=== PATIENT | male | born 1935 | race Caucasian/White ===

== ENCOUNTER 2021-08-01 14:05 | Inpatient (IN) | payer OTHER ==
--- OUTSIDE RECORDS SUMMARY | 2021-08-01 15:48 | XMS REPORT | Continuity of Care Document ---
:1935 Author Organization [facility] t Address [address] [place] [address] Care Team Providers Name Role Phone A_Joana Attending Clinician Unavailable Trell Arora Attending Clinician Lynnette Attending Clinician Unavailable Lolita Ulloa Attending Clinician Unavailable Gilberto Attending Clinician Unavailable Tom Ulloa MD Attending Clinician TE Lara Attending Clinician Unavailable IHDE_G Attending Clinician Unavailable Stephenie Bird Attending Clinician Jeremías Attending Clinician Unavailable Juan Francisco_Bygenia Admitting Clinician Unavailable Gilberto Admitting Clinician Unavailable TE Lara Admitting Clinician Unavailable RUTHIE_G Admitting Clinician Unavailable Jeremías Admitting Clinician Unavailable Payers Payer Name Policy Type Policy Number Effective Date Expiration Date S ource [facility] [id number] (MEDICARE REPLACEMENT/ADVANTA GE - PPO) [facility] [id number] [facility] - [id number] 2020 [facility] 00:00:00 (MEDICARE REPLACEMENT/ADVANTA GE - HMO) [employer] (MEDICARE [id number] REPLACEMENT/ADVANTA GE - PPO) Problems Condition Condition Condition Status Onset Resolution Last Treating Co mments Source Name Details Category Date Date Treatment Clinician Date Partial Partial Problem Active [facility] obstructio Obstructio 8-03 da n of n of 00:00: Medical intestine Intestine 00 Grou p Unintentio Unintentio Problem Active [facility] nal weight nal Weight 2-04 da loss Loss 00:00: Medical 00 Group Chronic Chronic Problem Active 2019-02 [facility] hyponatrem Hyponatrem 0-27 da ia ia 00:00: Medical 00 Group SARS-CoV-2 SARS-CoV-2 Problem Active M [facility] 8-04 da 00:00: Medical 00 Group 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 Hyperplasi 00:00: Me dical a without a without 00 Grou p outflow Outflow obstructio Obstructio n n Adult Adult Problem Active [facility] 6-[facility] da examinatio Examinatio 00:00: Me dical n n 00 Group Persistent Persistent Problem Active 2018-02 M [facility] insomnia Insomnia 0-21 da 00:00: Medical 00 Group Constipati Constipati Problem Active [facility] on on 8-07 da 00:00: Medical 00 Group Insomnia Insomnia Problem Active [facility] 7-25 da 00:00: Medical 00 Group 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 Knee Joint 00:00: Me dical 00 Group RIGHT KNEE Diagnosis Active 2018-09-08 [facility] DEGENERATI -24 22:25:00 l VE RIGHT 00:00: F[facility]o ARTHRITIS KNEE 00 DEGENERATI VE ARTHRITIS Active 08/09/2018 [facility] Filippo Ingrowing Ingrowing Problem Active 2017-02 [facility] toenail Toenail 1-20 da 00:00: Medical 00 Group Right Right Problem Active [facility] lower Lower 7-16 da quadrant Quadrant 00:00: Medica l pain Pain 00 Group Osteoarthr Osteoarthr Problem Active [facility] itis of itis of 1-16 da knee Knee 00:00: Medical 00 Group Headache Headache Problem Active 2016-02 [facility] 1-15 da 00:00: Medical 00 Group Osteoarthr Problem Active 2018-09-02 M emoria itis 21:56:57 l (disorder) Yousif n Osteoarthr itis (disorder) Active Problem 09/02/2018 [facility] Rosacea Problem Active 2018-09-02 Jone pavithra (disorder) 21:56:57 l Rosacea Filippo (disorder) Active Problem 09/02/2018 [facility] Diabetes Problem Active 2018-09-02 Mem oria mellitus 21:56:57 l type 2 Diabetes Yousif n (disorder) mellitus type 2 (disorder) Active Problem 09/02/2018 [facility] Hearing Problem Active 2018-09-02 Jone pavithra loss 21:56:57 l (finding) Hearing Herm mckay loss (finding) Active Problem 09/02/2018 [facility] Hypertensi Problem Active 2018-09-02 M emoria ve 21:56:57 l disorder, Mio systemic Hypertensi arterial ve (disorder) disorder, systemic arterial (disorder) Active Problem 09/02/2018 [facility] Diabetes Diabetes Problem Active [facility] mellitus Mellitus [facility] Hyperlipid Hyperlipid Problem Active [facility] emia emia [facility] Essential Essential Problem Active [facility] hypertensi Hypertensi da on on Medical Group Acute Acute Problem Active [facility] pharyngiti Pharyngiti da s s Medical Group Acute Acute Problem Active [facility] bronchitis Bronchitis [facility] Acute Acute Problem Active [facility] prostatiti Prostatiti da s s Medical Group Low back Low Back Problem Active [facility] pain Pain [facility] Increased Increased Problem Active [facility] frequency Frequency da of of Medical urination Urination Grou p Nocturia Nocturia Problem Active [facility] Raised Raised Problem Active [facility] prostate Prostate da specific Specific Medica l antigen Antigen Group Tear of Tear of Problem Active [facility] skin Skin [facility] Contusion Contusion Problem Active [facility] of elbow of Elbow [facility] Group Contusion Contusion Problem Active [facility] of lower of Lower da leg Leg Medical Group Contusion Contusion Problem Active [facility] of of da multiple Multiple Medica l sites Sites Group Traumatic Traumatic Problem Active [facility] hematoma Hematoma [facility] Group Myocardial Problem Resolve 2006-2018-09-02 2018-09-02 [facility] infarction d 02-16 21:56:57 21:56:57 l (disorder) 00:00: Yousif n Myocardial 00 infarction (disorder) Resolved 02/16/2006 Problem 09/02/2018 [facility] Allergies, Adverse Reactions, Alerts Allergy Allergy Status Severity Reaction(s) Onset Inactive Treating Comm ents Source Name Type Date Date Clinician Latex, DA Active [facility] 8-30 Isabel Rubber 00:00: [facility] 00 are [facility] st Latex, DA Active U SENSITIVE [facility] SKIN 8-30 Isabel Rubber 00:00: [facility] 00 are [facility] Adhesive Adhesive Active Memori a Tape Tape l Filipp[facility] Social History Social Habit Start Date Stop Date Quantity Comments Source Social History 2018-08-10 2018-08-10 [facility] Marlo patel 20:47:01 20:47:01 [birth year] [facility] 00:00:00 00:00:00 Smoking Status Start Date Stop Date Source Tobacco smoking consumption unknown [facility] Never Smoker [facility] Medications Ordered Filled Start Stop Current Ordering Indication Dosage Frequency Signature Comments Components Source Medication Medication Date Date Medication? Clinician (SIG) Name Name Colace 100 Colace 100 2020-02 No 1capsul Q1D Colace 100 [facility] mg capsule mg capsule 0-28 e(s) mg capsule da Take 1 Take 1 00:00: Take 1 Medical capsule capsule 00 capsule Group every day every day every day by oral by oral by oral route. route. route. Acetaminoph Yes 1 tab, PO, Memoria en 325 MG / 7-16 Q4H, PRN l Hydrocodone 15:16: Pain Score Filippo Bitartrate 00 4-6, # 30 5 MG Oral tab, 0 Tablet Refill(s) [[place] 5/325] Amlodipine No Notes: Memor ia 7-16 (Same as: l 14:00: Norvasc) Filippo 00 Metformin No Notes: Memori a 7-16 (Same as: l 14:00: Glucophage Filippo 00 ) Take with meal Isosorbide No Notes: Memor ia 7-16 (Same l 14:00: as:Imdur) "Do Not Crush" Take on empty stomach/ full glass of water. Do not crush Aspirin 81 Yes 81 mg = 1 Me moria MG Enteric 7-16 tab, PO, l Coated 10:13: BID, # 90 Yousif n Tablet 00 tab, 3 Refill(s) Benzocaine No Notes: Memor ia 15 MG / 7-16 Cepacol l Menthol 3.6 03:17: lozenges He rmann MG Lozenge 00 Dispense 1 [Cepacol box = 16 Sore Throat lozenges Pain Relief (Same As: 15/3.6] Cepacol Lozenges) Lipitor No Notes: Memoria 7-16 (Same As: l 02:00: Lipitor) Tranexamic No Notes: Memor ia Acid 7-15 (Same as: l 22:31: Lysteda) [facility]ilippo Aspirin 325 No Notes: (Do Memoria MG Enteric 7-15 Not Crush) l Coated 22:00: Do not Mio Tablet 00 crush or chew. Docusate No Notes: Memoria Sodium 100 7-15 (Same as: l MG Oral 22:00: Colace) Filippo Capsule 00 (Do Not [Colace] Crush) Cefazolin No Notes: Memori a 7-15 Same as: l 20:30: Ancef Filippo Flumazenil No Notes: Memor ia 7-15 (Same as: l 16:33: Romazicon) Filippo 00 Naloxone 2018- No Notes: Memoria 7-15 Same as l 16:33: Narcan Ondansetron No Notes: Jone pavithra 7-15 (Same as: l 16:33: Zofran) MEDICATION WASTE Product Size: 4 mg Product Wasted: ___ mg Hydromorpho 2018- No Notes: Jone pavithra ne 7-15 Same as l 16:33: Dilaudid POLYETHYLEN No Notes: Jone pavithra E GLYCOL 7-15 Dissolve l 3350 16:31: in 8 oz of water or juice. (Same as: Miralax) Trazodone No Notes: Memori a 7-15 (Same As: l 16:31: Desyrel) Acetaminoph No Notes: Jone pavithra en 325 MG / 7-15 Same as l Hydrocodone 16:31: [place] Marie nn Bitartrate 00 325-7.5mg 7.5 MG Oral Do not Tablet exceed [[place] 4gm/day of 7.5/325] acetaminop hen. Maalox No Notes: Memoria Advanced 7-15 (aluminum l Regular 16:31: hydroxide- Herm mckay Strength magnesium SUSP hyd- simethicon e 400-400-40 mg/5ml 30 ml ud ELVA) Tylenol No Notes: Do Memor ia 7-15 not exceed l 16:31: 4 gm/day. Filippo (Same as: Tylenol) Milk of No Notes: Memoria Magnesia 7-15 (Same as: l 16:31: Milk of Magnesia, MOM) Famotidine No Notes: Memor ia 7-15 (Same as: l 16:31: Pepcid) NS 1,000 mL No 1,000 mL, M emoria 7-15 Rate: 85 l 16:31: ml/hr, Infuse over: 11.8 hr, Route: IV, Dosing Weight 95 kg, Total Volume: 1,000, Start date: 08/30/18 11:31:00 CDT, Duration: 30 day, Stop date: 09/29/18 11:30:00 CDT, 2.23, m2, 0 Melatonin No Notes: Memori a 7-15 (Same as: l 16:31: Melatonin) Zofran ODT No Notes: Memor ia 7-15 (Same as: l 16:31: Zofran ODT) Dulcolax No Notes: [facility] Laxative 7-15 (Same As: l 16:31: Dulcolax, Bisco-Lax) Diphenhydra No Notes: Jone pavithra mine 7-15 (Same as: l 16:31: Benadryl) Morphine No Notes: Memoria 7-15 (Same l 16:31: as:MORPhin e Sulfate) Acetaminoph No Notes: Jone pavithra en 325 MG / 7-15 (Same as: l Hydrocodone 16:31: [place] Marie nn Bitartrate 00 325/5) Do 5 MG Oral not exceed Tablet 4gm/day of [[place] acetaminop 5/325] hen. neostigmine No Route: IV, Memoria (ANES) 7-15 Drug form: l 16:25: INJ, ONCE, Stop date: 08/30/18 11:25:00 CDT ondansetron No Route: IV, Memoria (ANES) 7-15 Drug form: l 16:25: INJ, ONCE, Stop date: 08/30/18 11:25:00 CDT Insulin No Notes: [facility]oria Lispro 7-15 (Same as: l 16:10: Humalog) Roll in palms of hands gently; Do not shake vigorously . WASTE: F/P - Black; E - Municipal Trash Bin Stable for 28 days at room temperatur e. Expires in days from ____Date Dextrose No 25 gm, 50 Jone pavithra 50% Syringe 7-15 mL, Route: l 16:10: IVP, Drug Form: INJ, Dosing Weight 95, kg, PRN, PRN Blood Glucose Results, Start date: 08/30/18 11:10:00 CDT, Duration: 30 day, Stop date: 09/29/18 11:09:00 CDT, 0 Glucagon 2019-0 No 1 mg, Memoria 7-15 Route: IM, l 16:10: Drug form: PDR/INJ, PRN, Dosing Weight 95, kg, PRN Blood Glucose Results, Start date: 08/30/18 11:10:00 CDT, Duration: 30 day, Stop date: 09/29/18 11:09:00 CDT, 0 fentaNYL 2019-0 No Route: IV, Mem oria (ANES) 7-15 Drug form: l 14:58: INJ, ONCE, Stop date: 08/30/18 9:58:00 CDT lidocaine 2018-0 No Route: IV, Me moria (ANES) 7-15 Drug form: l 14:28: INJ, ONCE, Stop date: 08/30/18 9:28:00 CDT propofol 2019-0 No Route: IV, Mem oria (ANES) 7-15 Drug form: l 14:28: INJ, ONCE, Stop date: 08/30/18 9:28:00 CDT rocuronium 2018-0 No Route: IV, M emoria (ANES) 7-15 Drug form: l 14:28: INJ, ONCE, Stop date: 08/30/18 9:28:00 CDT ceFAZolin 2018-0 No Route: IV, Me moria (ANES) 7-15 Drug form: l 14:23: INJ, ONCE, Stop date: 08/30/18 9:23:00 CDT glycopyrrol 2018-0 No Route: IV, Memoria ate (ANES) 7-15 Drug form: l 14:23: INJ, ONCE, Stop date: 08/30/18 9:23:00 CDT Hydralazine 2018-0 No Notes: Jone pavithra 7-15 (Same as: l 13:42: Apresoline ) Push over 5 minutes Labetalol 2019-0 No 10 mg, 2 Jone pavithra 7-15 mL, Route: l 13:42: IVP, Drug form: INJ, Q5Min, Dosing Weight 95, kg, PRN Elevated BP, Start date: 08/30/18 8:42:00 CDT, Duration: 5 doses or times, Stop date: 08/30/18 18:00:00 CDT, 0 Metoprolol No Notes: Memor ia 7-15 (Same as: l 13:42: Lopressor) Push over 2 minutes Hydromorpho No Notes: Jone pavithra ne 7-15 Same as l 13:42: Dilaudid Oxycodone No Notes: Memori a Hydrochlori 7-15 (Same as: l de 5 MG 13:42: Roxicodone Herm mckay Oral Tablet ) Morphine No Notes: Memoria 7-15 (Same l 13:42: as:MORPhin Filippo 00 e Sulfate) Acetaminoph No Notes: Max Memoria en 7-15 acetaminop l 13:42: hen 4000 Filippo 00 mg/day (4 gm/day). (Same as: Tylenol Extra Strength) Flumazenil No Notes: Memor ia 7-15 (Same as: l 13:42: Romazicon) Naloxone No Notes: Memoria 7-15 Same as l 13:42: Narcan Meperidine No Notes: Memor ia 7-15 (Same as: l 13:42: Demerol) "Use Precaution in Elderly, Seizure disorders, and Renal impairment " Ondansetron No Notes: Jone pavithra 7-15 (Same as: l 13:42: Zofran) MEDICATION WASTE Product Size: 4 mg Product Wasted: ___ mg propofol No Route: IV, Mem oria (ANES) 10 7-15 Drug form: l mg 13:40: INJ, Start date: 08/30/18 8:40:00 CDT, Stop date: 08/30/18 9:40:00 CDT Lactated No Route: IV, Mem oria Ringers 7-15 Total l Injection 13:32: Volume: Marie nn IV (ANES) 00 1,000, 1000 mL Start date: 08/30/18 8:32:00 CDT, Stop date: 08/30/18 9:32:00 CDT Lactated 2019-0 No 1,000 mL, Jone pavithra Ringers IV 7-15 Rate: TKO, l 1,000 mL 12:16: Route: IV, Her figueroa 00 Dosing Weight 95 kg, Total Volume: 1,000, Start date: 08/30/18 7:16:00 CDT, Duration: 30 day, Stop date: 09/29/18 7:15:00 CDT, 2.23, m2, 0 ropivacaine No Notes: Jone pavithra 7-15 NOT FOR l 12:00: IV use Filippo Each mL contains: Ropivacain e 2.46 mg, Epinephrin e 0.005 mg, Clonidine 0.0008 mg and Ketorolac 0.3 mg in Sodium Chloride Cefazolin No 2 gm, 50 Jone pavithra 7-15 mL, Route: l 12:00: IVP, Drug Filippo form: INJ, ONCALL, Dosing Weight 95.938, kg, (Patients weighing < 120 kg), Start date: 08/30/18 7:00:00 CDT, Duration: 1 doses or times, Stop date: 08/30/18 12:00:00 CDT, ABX Indication : Surgical Prophylaxi s, 0 Vancomycin No 2000 mg: Me moria 7-15 infuse l 12:00: over 2.5 Filippo 00 hours Zofran ODT No Notes: Memor ia 7-15 (Same as: l 11:48: Zofran Filippo 00 ODT) Tranexamic No Notes: Memor ia Acid 7-15 (Same as: l 11:48: Lysteda) Filippo 00 vancomycin No Notes: Memor ia + Sodium 7-15 TIME l Chloride 11:00: CRITICAL Marie nn 0.9% IV 250 00 MEDICATION mL (Same As: Vancocin) For adult patients only: Round to nearest 250 mg per Medical Staff approval ropivacaine 20190 No 100 ml/hr, Memoria 0.5% 246.25 7-15 Route: l mg + 11:00: intra-YOGI Mio EPINEPHrine 00 CULAR, 0.5 mg + ONCALL, cloNIDine Start 80 date: microgram + 08/30/18 Sodium 6:00:00 Chloride CDT, 0.9% IV Duration: 1 doses or times, Stop date: 08/30/18 18:00:00 CDT, 0 polymyxin B No Notes: Jone pavithra sulfate + 715 (Same as: l Sodium 11:00: Polymyxin Yousif n Chloride 00 B Sulfate) 0.9% IV 250 mL Metronidazo Yes 1 appl, Mem oria le 0.01 7- TOP, l MG/MG 20:03: Daily, # Filippo Topical Gel 00 45 gm, 0 [MetroGel] Refill(s) POLYETHYLEN Yes 17 gm, PO, Memoria E GLYCOL 7- Daily, PRN l 3350 142 20:03: Constipati Her figueroa MG/ML Oral 00 on, 0 Solution Refill(s) [Miralax] Tetracyclin Yes 250 mg = 1 Memoria e 250 MG 08-16 cap, PO, l Oral 20:03: Q6H, PRN Filippo Capsule 00 breakouts, # 28 cap, 0 Refill(s) Docusate Yes 100 mg = 1 Mem oria Sodium 100 6-25 cap, PO, l MG Oral 20:38: Daily, 0 Yousif n Capsule 00 Refill(s) [Colace] Home No PO, Daily, Memoria Medication 6-25 Refill(s) l 20:37: 0 Mio 00 isosorbide Yes 30 mg = 1 Me moria mononitrate 6-25 tab, PO, l 30 mg oral 20:37: QAM, # 30 He rmann tablet, 00 tab, 0 extended Refill(s) release clopidogrel Yes 75 mg = 1 M emoria 75 MG Oral 6-25 tab, PO, l Tablet 20:36: Daily, # Filippo [Plavix] 00 30 tab, 0 Refill(s) Amlodipine Yes 10 mg, PO, M emoria 6-25 Daily, 0 l 20:36: Refill(s) Mio 00 Aspirin 81 No 81 mg = 1 Me moria MG Enteric 6-25 tab, PO, l Coated 20:36: Daily, # Filippo Tablet 00 90 tab, 3 Refill(s) Metformin Yes 500 mg, Memor ia 6-25 PO, BID, 0 l 20:35: Refill(s) Filippo 00 Niacin SR Yes 1,000 mg, Mem oria 6-25 PO, l 20:35: Bedtime, 0 Filippo 00 Refill(s) atorvastati Yes 20 mg = 1 M emoria n 20 MG 6-25 tab, PO, l Oral Tablet 20:34: Bedtime, # Mio [Lipitor] 00 30 tab, 0 Refill(s) aspirin 81 aspirin 81 No aspirin 81 [facility] mg mg mg da tablet,vin tablet,vin tablet,del Medical yed release yed release ayed G roup release atorvastati atorvastati No atorvastat [place] n 20 mg n 20 mg in 20 mg da tablet TAKE tablet TAKE tablet Medical ONE (1) ONE (1) TAKE ONE Group TABLET TABLET (1) TABLET EVERY DAY EVERY DAY EVERY DAY BY ORAL BY ORAL BY ORAL ROUTE. ROUTE. ROUTE. clopidogrel clopidogrel No clopidogre [facility] 75 mg 75 mg l 75 mg da tablet TAKE tablet TAKE tablet Medical 1 TABLET 1 TABLET TAKE 1 Group EVERY DAY EVERY DAY TABLET BY ORAL BY ORAL EVERY DAY ROUTE. ROUTE. BY ORAL ROUTE. isosorbide isosorbide No isosorbide [facility] mononitrate mononitrate mononitrat da ER 30 mg ER 30 mg e ER 30 mg M edical tablet,exte tablet,exte tablet,ext Group nded nded ended release 24 release 24 release 24 hr TAKE 1 hr TAKE 1 hr TAKE 1 TABLET TABLET TABLET EVERY DAY EVERY DAY EVERY DAY BY ORAL BY ORAL BY ORAL ROUTE. ROUTE. ROUTE. metformin metformin No metformin [facility] 500 mg 500 mg 500 mg da tablet Take tablet Take tablet Medical 1 tablet 1 tablet Take 1 Group twice a day twice a day tablet by oral by oral twice a route. route. day by oral route. niacin ER niacin ER No niacin ER [facility] 1,000 mg 1,000 mg 1,000 mg da tablet,exte tablet,exte tablet,ext Medical nded nded ended Group release 24 release 24 release 24 hr TAKE ONE hr TAKE ONE hr TAKE (1) (1) ONE (1) TABLET(S) TABLET(S) TABLET(S) BY MOUTH BY MOUTH BY MOUTH TWICE A TWICE A TWICE A DAY. DAY. DAY. nitroglycer nitroglycer No nitroglyce [facility] in 0.4 mg in 0.4 mg rin 0.4 mg da sublingual sublingual sublingual Medical tablet tablet tablet Group olmesartan olmesartan No olmesartan [facility] 20 mg 20 mg 20 mg da tablet TAKE tablet TAKE tablet Medical 1 TABLET 1 TABLET TAKE 1 Group EVERY DAY EVERY DAY TABLET BY ORAL BY ORAL EVERY DAY ROUTE. ROUTE. BY ORAL ROUTE. sodium sodium No sodium [facility] chloride 1 chloride 1 chloride 1 da gram tablet gram tablet gram M edical TAKE ONE TAKE ONE tablet Group (1) (1) TAKE ONE TABLET(S) TABLET(S) (1) BY MOUTH BY MOUTH TABLET(S) THREE TIMES THREE TIMES BY MOUTH A DAY FOR A DAY FOR THREE LOW SODIUM. LOW SODIUM. TIMES A DAY FOR LOW SODIUM. sodium sodium No sodium [facility] chloride chloride chloride da 1,000 mg 1,000 mg 1,000 mg Med ical soluble soluble soluble Group tablet TAKE tablet TAKE tablet ONE (1) ONE (1) TAKE ONE TABLET(S) TABLET(S) (1) BY MOUTH BY MOUTH TABLET(S) THREE TIMES THREE TIMES BY MOUTH A DAY FOR A DAY FOR THREE LOW SODIUM. LOW SODIUM. TIMES A DAY FOR LOW SODIUM. tamsulosin tamsulosin No tamsulosin [facility] 0.4 mg 0.4 mg 0.4 mg da capsule capsule capsule Medica l TAKE ONE TAKE ONE TAKE ONE Pamela up (1) (1) (1) CAPSULE(S) CAPSULE(S) CAPSULE(S) BY MOUTH BY MOUTH BY MOUTH EVERY DAY. EVERY DAY. EVERY DAY. tramadol 50 tramadol 50 No tramadol [facility] mg tablet mg tablet 50 mg da TAKE ONE TAKE ONE tablet Medic al (1) (1) TAKE ONE Group TABLET(S) TABLET(S) (1) BY MOUTH BY MOUTH TABLET(S) EVERY 6 EVERY 6 BY MOUTH HOURS HOURS EVERY 6 NEEDED FOR NEEDED FOR HOURS PAIN SCALE PAIN SCALE NEEDED FOR 7-10 (USE 7-10 (USE PAIN SCALE 1ST). 1ST). 7-10 (USE 1ST). Vitamin B12 Vitamin B12 No Vitamin [facility] B12 da [facility] Group Vitamin C Vitamin C No Vitamin C [facility] vitamin E vitamin E No vitamin E [facility] (dl, (dl, (dl, da acetate) acetate) acetate) Med ical 180 mg (400 180 mg (400 180 mg Group unit) unit) (400 unit) capsule capsule capsule Take by Take by Take by oral route. oral route. oral route. Immunizations Ordered Immunization Filled Immunization Date Status Commen ts Source Name Name Influenza vaccine, Influenza vaccine, 2021-02-21 Completed [facility] quadrivalent, quadrivalent, 15:52:00 Medical Group adjuvanted adjuvanted influenza, high dose influenza, high dose 2018-12-31 Completed [facility] seasonal seasonal 16:27:00 Medical Group Tdap Tdap 2015-09-29 Completed [facility] 18:46:02 Medical Group pneumococcal pneumococcal 2006-02-16 Completed [facility] polysaccharide PPV23 polysaccharide PPV23 00:00:00 Medical Group Vital Signs Vital Name Observation Time Observation Value Comments Source BP Diastolic 2021-06-27 00:00:00 57 mm[Hg] [facility] Height 2021-06-27 00:00:00 73 [facility] BMI (Body Mass 2021-06-27 00:00:00 22.5 kg/m2 [facility] Medical Index) Group BP Systolic 2021-06-27 00:00:00 115 mm[Hg] [facility] Body Weight 2021-06-27 00:00:00 2728 [facility]_av[facility] BP Diastolic 2021-02-21 00:00:00 62 mm[Hg] [facility] Height 2021-02-21 00:00:00 73 [in_i] [facility] BMI (Body Mass 2021-02-21 00:00:00 20.7 kg/m2 [facility] doctor of dental surgery Medical Index) Group BP Systolic 2021-02-21 00:00:00 136 mm[Hg] [facility] Body Weight 2021-02-21 00:00:00 2510.4 [oz_av] [facility] BP Diastolic 2020-09-11 00:00:00 72 mm[Hg] [facility] Height 2020-09-11 00:00:00 73 [in_i] [facility] BMI (Body Mass 2020-09-11 00:00:00 19.8 kg/m2 [facility] doctor of dental surgery Medical Index) Group BP Systolic 2020-09-11 00:00:00 122 mm[Hg] [facility] Body Weight 2020-09-11 00:00:00 2400 [oz_av] [facility] Height 2020-07-10 00:00:00 73 [in_i] [facility] BP Diastolic 2020-03-22 00:00:00 68 mm[Hg] [facility] Height 2020-03-22 00:00:00 73 [in_i] [facility] BMI (Body Mass 2020-03-22 00:00:00 22.7 kg/m2 [facility] doctor of dental surgery Medical Index) Group BP Systolic 2020-03-22 00:00:00 140 mm[Hg] [facility] Body Weight 2020-03-22 00:00:00 2755.2 [oz_av] [facility] of dental surgery [facility] Group BP Diastolic 2020-02-23 00:00:00 50 mm[Hg] [facility] Height 2020-02-23 00:00:00 73 [in_i] [facility] BMI (Body Mass 2020-02-23 00:00:00 23.2 kg/m2 [facility] doctor of dental surgery Medical Index) Group BP Systolic 2020-02-23 00:00:00 112 mm[Hg] [facility] Body Weight 2020-02-23 00:00:00 176 [lb_av] [facility] Height 2019-12-13 00:00:00 73 [in_i] [facility] BMI (Body Mass 2019-12-13 00:00:00 23.1 kg/m2 [facility] doctor of dental surgery Medical Index) Group Body Weight 2019-12-13 00:00:00 2800 [oz_av] [facility] Height 2019-12-06 00:00:00 73 [in_i] [facility] BMI (Body Mass 2019-12-06 00:00:00 23.1 kg/m2 [facility] doctor of dental surgery Medical Index) Group Body Weight 2019-12-06 00:00:00 2800 [oz_av] [facility] Height 2019-11-15 00:00:00 73 [in_i] [facility] BMI (Body Mass 2019-11-15 00:00:00 23.1 kg/m2 [facility] doctor of dental surgery Medical Index) Group Body Weight 2019-11-15 00:00:00 2800 [oz_av] [facility] Height 2019-10-03 00:00:00 73 [in_i] [facility] BMI (Body Mass 2019-10-03 00:00:00 23.1 kg/m2 [facility] doctor of dental surgery Medical Index) Group Body Weight 2019-10-03 00:00:00 2800 [oz_av] [facility] Height 2019-09-26 00:00:00 73 [in_i] [facility] BMI (Body Mass 2019-09-26 00:00:00 23.7 kg/m2 [facility] doctor of dental surgery Medical Index) Group Body Weight 2019-09-26 00:00:00 2880 [oz_av] [facility] BP Diastolic 2019-07-21 00:00:00 69 mm[Hg] [facility] Height 2019-07-21 00:00:00 73 [in_i] [facility] BMI (Body Mass 2019-07-21 00:00:00 25.6 kg/m2 [facility] doctor of dental surgery Medical Index) Group BP Systolic 2019-07-21 00:00:00 136 mm[Hg] [facility] Body Weight 2019-07-21 00:00:00 3104 [oz_av] [facility] BP Diastolic 2018-12-31 00:00:00 69 mm[Hg] [facility] Height 2018-12-31 00:00:00 73 [in_i] [facility] BMI (Body Mass 2018-12-31 00:00:00 23.5 kg/m2 [facility] Group BP Systolic 2018-12-31 00:00:00 135 mm[Hg] [facility] Body Weight 2018-12-31 00:00:00 2848 [oz_av] [facility] BP Diastolic 2018-12-06 00:00:00 68 mm[Hg] [facility] Height 2018-12-06 00:00:00 73 [in_i] [facility] BMI (Body Mass 2018-12-06 00:00:00 23.9 kg/m2 [facility] Medical Index) Group BP Systolic 2018-12-06 00:00:00 150 mm[Hg] [facility] Body Weight 2018-12-06 00:00:00 2896 [oz_av] [facility] BP Diastolic 2018-11-22 00:00:00 63 mm[Hg] [facility] Height 2018-11-22 00:00:00 73 [in_i] [facility] BMI (Body Mass 2018-11-22 00:00:00 24.1 kg/m2 [facility] Medical Index) Group BP Systolic 2018-11-22 00:00:00 149 mm[Hg] [facility] Body Weight 2018-11-22 00:00:00 2928 [oz_av] [facility] BP Diastolic 2018-11-09 00:00:00 57 mm[Hg] [facility] Height 2018-11-09 00:00:00 73 [in_i] [facility] BMI (Body Mass 2018-11-09 00:00:00 24.4 kg/m2 [facility] Medical Index) Group BP Systolic 2018-11-09 00:00:00 122 mm[Hg] [facility] Body Weight 2018-11-09 00:00:00 2960 [oz_av] [facility] BP Diastolic 2018-09-22 00:00:00 79 mm[Hg] [facility] Height 2018-09-22 00:00:00 73 [in_i] [facility] BMI (Body Mass 2018-09-22 00:00:00 25.9 kg/m2 [facility] Medical Index) Group BP Systolic 2018-09-22 00:00:00 171 mm[Hg] [facility] Body Weight 2018-09-22 00:00:00 3136 [oz_av] [facility] BP Diastolic 2018-09-09 00:00:00 58 mm[Hg] [facility] Height 2018-09-09 00:00:00 73 [in_i] [facility] BMI (Body Mass 2018-09-09 00:00:00 27.2 kg/m2 [facility] Medical Index) Group BP Systolic 2018-09-09 00:00:00 157 mm[Hg] [facility] Body Weight 2018-09-09 00:00:00 3296 [oz_av] [facility] BP Diastolic 2018-03-09 00:00:00 66 mm[Hg] [facility] Height 2018-03-09 00:00:00 73 [in_i] [facility] BMI (Body Mass 2018-03-09 00:00:00 27.2 kg/m2 [facility] Medical Index) Group BP Systolic 2018-03-09 00:00:00 129 mm[Hg] [facility] Body Weight 2018-03-09 00:00:00 3296 [oz_av] [facility] Temperature Oral (F) 2018-08-31 16:14:00 97.3 F [facility] Heart Rate 2018-08-31 16:14:00 [facility] Respitory Rate 2018-08-31 16:14:00 [facility] Systolic (mm Hg) 2018-08-31 16:14:00 J[facility] Diastolic (mm Hg) 2018-08-31 16:14:00 [facility] Systolic (mm Hg) 2018-08-31 12:41:00 Jone [facility] Diastolic (mm Hg) 2018-08-31 12:41:00 [facility] Respitory Rate 2018-08-31 12:41:00 [facility] Temperature Oral (F) 2018-08-31 12:41:00 97.7 F [facility] Heart Rate 2018-08-31 12:41:00 [facility] Respitory Rate 2018-08-31 08:48:00 [facility] Systolic (mm Hg) 2018-08-31 08:48:00 Jone [facility] Mio Diastolic (mm Hg) 2018-08-31 08:48:00 [facility] Heart Rate 2018-08-31 08:48:00 [facility] Temperature Oral (F) 2018-08-31 08:48:00 98.5 F [facility] Weight 2018-08-30 12:04:00 [facility] Height 2018-08-30 12:04:00 186.69 cm [facility] BMI Calculated 2018-08-30 12:04:00 Naina Ansari Procedures Procedure Date / Time Performing Clinician Source Performed [id number] 2020-12-04 00:00:00 PHABR [facility] [id number] 2020-12-04 00:00:00 HAAER [facility] [id number] 2020-12-04 00:00:00 HAAER [facility] [id number] 2020-12-04 00:00:00 HAAER [facility] [id number] 2020-12-04 00:00:00 HAAER [facility] [id number] 2020-12-04 00:00:00 HAAER [facility] [id number] 2020-12-04 00:00:00 HAAER [facility] [id number] 2020-12-04 00:00:00 HAAER [facility] [id number] 2020-10-16 00:00:00 ELLRA [facility] CT ABD/PELVIC EXTERNAL 2020-09-26 19:41:45 Stevie Ulloa [facility] STUDY Placement of stent 2006-02-16 00:00:00 [facility] Excision of vocal cord 2005-02-16 00:00:00 Dorita Barkley nodule Cataract extraction and [facility] insertion of intraocular lens Plan of Care Planned Activity Planned Date Details Comments Source Future Scheduled 2021-03-19 COVID-19 VACCINE (1) [facility] Test 23:47:51 [code = COVID-19 VACCINE (1)] Future Scheduled 2021-03-19 SHINGLES VACCINES (#1) [facility] Test 23:47:51 [code = SHINGLES VACCINES (#1)] Future Scheduled 2021-03-19 INFLUENZA VACCINE Method [facility] Test 23:47:51 [code = INFLUENZA VACCINE] Future Scheduled SHINGLES VACCINES (#1) [facility] Test [code = SHINGLES VACCINES (#1)] Future Scheduled INFLUENZA VACCINE Method [facility] Test [code = INFLUENZA VACCINE] Future Scheduled DIABETES: RETINAL EYE [facility] EXAM [code = DIABETES: RETINAL EYE EXAM] Future Scheduled DIABETIC FOOT EXAM [facility] Test [code = DIABETIC FOOT EXAM] Future Scheduled URINE MICROALBUMIN [facility] Test [code = URINE MICROALBUMIN] Future Scheduled COVID-19 VACCINE (1) [facility] [code = COVID-19 VACCINE (1)] Future Scheduled SHINGLES VACCINES (#[facility]) [facility] [code = SHINGLES VACCINES (#1)] Future Scheduled IN[facility]UENZA [facility]ACCINE [facility] Test [code = INFLUENZA VACCINE] Future Scheduled DIABETES: RETINAL EYE [facility] Test EXAM [code = DIABETES: RETINAL EYE EXAM] Future Scheduled DIABETIC FOOT EXAM [facility] Test [code = DIABETIC FOOT EXAM] Future Scheduled COVID-19 VACCINE (1) [facility] Test [code = COVID-19 VACCINE (1)] Future Scheduled SHINGLES VACCINES (#1) [facility] Test [code = SHINGLES VACCINES (#1)] Future Scheduled INFLUENZA VACCINE [facility] Test [code = INFLUENZA VACCINE] Future Scheduled DIABETES: RETINAL EYE [facility] Test EXAM [code = DIABETES: RETINAL EYE EXAM] Future Scheduled DIABETIC FOOT EXAM [facility] Test [code = DIABETIC FOOT EXAM] Future Scheduled COVID-19 VACCINE (1) [facility] Test [code = COVID-19 VACCINE (1)] Future Scheduled SHINGLES VACCINES (#1) [facility] Test [code = SHINGLES VACCINES (#1)] Future Scheduled INFLUENZA VACCINE [facility] Test [code = INFLUENZA VACCINE] Future Scheduled DIABETES: RETINAL EYE [facility] EXAM [code = DIABETES: RETINAL EYE EXAM] Future Scheduled DIABETIC FOOT EXAM [facility] Test [code = DIABETIC FOOT EXAM] Future Scheduled COVID-19 VACCINE (1) [facility] Test [code = COVID-19 VACCINE (1)] Future Scheduled SHINGLES VACCINES (#1) [facility] Test [code = SHINGLES VACCINES (#1)] Future Scheduled INFLUENZA VACCINE [facility] Test [code = INFLUENZA VACCINE] Future Scheduled COVID-19 VACCINE (1) [facility] Test [code = COVID-19 VACCINE (1)] Future Scheduled SHINGLES VACCINES (#1) [facility] Test [code = SHINGLES VACCINES (#1)] Future Scheduled INFLUENZA VACCINE [facility] Test [code = INFLUENZA VACCINE] Future Scheduled COVID-19 [facility]ACCINE (1) [facility] [code = COVID-19 VACCINE (1)] Encounters Start End Encounter Admission Attending Care Care Encounter Source Date/Time Date/Time Type Type Clinicians Facility Department ID 2021-06-27 2021-06-27 Outpatient A_Byrd [facility] [id number] 220 [place] 03:17:00 03:17:00 512 [facility] Group 2021-06-27 2021-06-27 Outpatient A_Byrd [facility]G 2558-20 220 [place] 03:17:00 03:17:00 513 Medical Group 2021-06-27 2021-06-27 Leonard Guzman MM [place] - [id number] M atagor 00:00:00 00:00:00 MD Joana: [address] [place] [address] , Ph. 2021-04-21 2021-04-21 Outpatient A_Byrd MMG MMG 2558-20 220 [place] 03:27:00 03:27:00 322 Medical Group 2021-04-02 2021-04-02 Outpatient A_Byrd MMG MMG 2558-20 220 [place] 12:24:00 12:24:00 215 Medical Group 2021-02-21 2021-02-21 Outpatient A_Byrd MMG MMG 2558-20 220 [place] 04:38:00 04:38:00 106 Medical Group 2021-02-21 2021-02-21 Outpatient A_Byrd MMG MMG 2558-20 220 [place] 04:38:00 04:38:00 113 Medical Group 2021-02-21 2021-02-21 Outpatient A_Byrd MMG MMG 2558-20 220 [place] 04:38:00 04:38:00 114 Medical Group 2021-02-21 2021-02-21 Leonard ESCOBEDO [place] - [id number] M atagor 00:00:00 00:00:00 MD Joana: Discovery [address] Network Group [place] - [address], [facility], [place] [address] , Ph. 2020-12-14 2020-12-14 Orders Angelic 1.2.840.1 [id number] Methodi 00:00:00 00:00:00 Only dallin 45208.1.1 978 [facility] 3.430.2.7 Hospi ta Cai .3.938027 l .8 2020-12-12 2020-12-12 Inpatient Sam Mendez [facility] RAD BP00 [id number] [facility] 10:30:00 09:55:00 23 [facility] 2020-12-04 2020-12-07 Inpatient Stevie Gaines [facility] DAYS [id number] [facility] 12:45:00 13:30:00 33 [facility] 2020-12-05 2020-12-05 Outpatient Stevie Ulloa [facility] REF [id number] [facility] 08:31:00 08:31:00 81 [facility] 2020-11-29 2020-11-29 Outpatient TOMMIE Macias [facility] 3DAY BP00 [id number] [facility] 00:00:00 00:00:00 Dory Canales [facility] 2020-11-22 2020-11-22 Orders Stevie Ulloa 1.2.840.1 [id number] Methodi 00:00:00 00:00:00 Only Tom 72746.1.1 444 3.430.2.7 Hospit a .3.046364 l .8 2020-11-21 2020-11-21 Outpatient Gigi MM MMG 2558-20 211 [place] 04:49:00 04:49:00 Phyllis [facility] 2020-10-15 2020-10-18 Inpatient MARCIA Lara [facility] MEDI.01 [id number] [facility] 14:32:00 14:58:00 Enrico 95 [facility] 2020-10-15 2020-10-15 Outpatient ENOC Lara REF [id number] [facility] 19:41:00 19:41:00 [facility] 2020-10-11 2020-10-11 Hospital Shahab Ulloaic 1.2.840.1 [id number] Methodi 19:00:38 23:59:00 Encounter Tom 65351.1.1 734 s t 3.430.2.7 Hospit a .3.120782 l .8 2020-09-26 2020-09-26 Orders Shahab Ulloaic 1.2.840.1 [id number] Methodi 00:00:00 00:00:00 Only Tom [address]64.1.[address] 3.430.2.7 Hospit a .3.558263 l .8 2020-09-18 2020-09-18 Outpatient A_Byrd MM MMG 2558-20 210 [place] 09:39:00 09:39:00 803 Medical Group 2020-09-11 2020-09-11 Outpatient A_[facility]rd [facility]G MMG 2558-20 210 [place] 03:11:00 03:11:00 727 [facility] 2020-09-11 2020-09-11 Leonard Guzman [facility] [place] - [id number] M atagor 00:00:00 00:00:00 MD Joana: [address] [place] [address] , Ph. 2020-07-10 2020-07-10 Outpatient A_Byrd MMG MM 2558-20 210 [place] 12:08:00 12:08:00 525 [facility] 2020-07-10 2020-07-10 Leonard Guzman MM [place] - [id number] M atagor 00:00:00 00:00:00 MD Joana: [address] [place] [address] , Ph. 2020-04-23 2020-04-23 Outpatient A_Byrd MMG MM 2558-20 210 [place] 03:36:00 03:36:00 524 [facility] 2020-04-13 2020-04-13 Outpatient A_Byrd [facility]G MMG 2558-20 210 [place] 02:23:00 02:23:00 302 [facility] 2020-03-25 2020-03-25 Outpatient A_Byrd [facility]G MMG 2558-20 210 [place] 11:28:00 11:28:00 207 [facility] 2020-03-22 2020-03-22 Outpatient A_[facility]rd MMG MMG 2558-20 210 [place] 03:55:00 03:55:00 204 Medical Group 2020-03-22 2020-03-22 Leonard Guzman MM [place] - [id number] M atagor 00:00:00 00:00:00 MD Joana: [address] Group [facility] 201[facility] [place] [address] , Ph. 2020-03-09 2020-03-09 Outpatient IHDE_G MMG MMG 2558-20 210 [place] 06:45:00 06:45:00 203 Medical Group 2020-03-01 2020-03-01 Outpatient IHDE_G MMG MMG 2558-20 210 [place] 10:10:00 10:10:00 122 Medical Group 2020-02-27 2020-02-27 Outpatient IHDE_G MMG MMG 2558-20 210 [place] 04:24:00 04:24:00 111 Medical Group 2020-02-23 2020-02-23 Outpatient IHDE_G MMG MMG 2558-20 210 [place] 02:51:00 02:51:00 107 [facility] 2020-02-23 2020-02-23 Outpatient IHDE_G MMG MMG 2558-20 210 [place] 02:51:00 02:51:00 109 [facility] 2020-02-23 2020-02-23 Outpatient IHDE_G MMG MMG 2558-20 210 [place] 02:51:00 02:51:00 110 Medical Group 2020-02-23 2020-02-23 Parvez ORDOÑEZ [place] - [id number] M atagor 00:00:00 00:00:00 Ramón Benz MD: Medical [facility] [address], [place] [address] , Ph. [phone] 2020-01-04 2020-01-04 Outpatient A_Byrd MMG MM 2558-20 201 [place] 02:30:00 02:30:00 118 Medical [facility] 2020-01-04 2020-01-04 Outpatient A_Byrd MMG MM 2558-20 210 [place] 02:30:00 02:30:00 105 Medical [facility] 2019-12-13 2019-12-13 Outpatient A_Byrd MMG MM 2558-20 201 [place] 02:58:00 02:58:00 027 Medical Group 2019-12-13 2019-12-13 Outpatient A_Byrd MMG MM 2558-20 201 [place] 02:58:00 02:58:00 028 Medical Group 2019-12-13 2019-12-13 Outpatient A_Byrd MMG MM 2558-20 201 [place] 02:58:00 02:58:00 029 Medical Group 2019-12-13 2019-12-13 Outpatient A_Byrd MMG MM 2558-20 201 [place] 02:58:00 02:58:00 030 Medical Group 2019-12-13 2019-12-13 Outpatient A_Byrd MM MM 2558-20 201 [place] 02:58:00 02:58:00 102 Medical Group 2019-12-13 2019-12-13 Outpatient A_Byrd MMG MM 2558-20 201 [place] 02:58:00 02:58:00 108 Medical Group 2019-12-13 2019-12-13 Leonard Guzman [facility] [place] - [id number] M atagor 00:00:00 00:00:00 MD Joana: Discovery ma [address] [place] [address] [address] [address] , Ph. 2019-12-07 2019-12-07 Outpatient A_Byrd MMG MM 2558-20 201 [place] 12:04:00 12:04:00 022 Medical Group 2019-12-07 2019-12-07 Outpatient A_Byrd [facility] 2557-20 201 [place] 12:04:00 12:04:00 023 Medical Group 2019-12-07 2019-12-07 Audiology Simeon, 1.2.840.1 [id number] Methodi 11:48:03 11:49:13 Visit Emy [address]3983.1.[address] 3.430.2.7 Hospit a .3.082721 l .8 2019-12-07 2019-12-07 Travel 1.2.840.1 1.2.987.463 [id number] Methodi 00:00:00 00:00:[address] 3.430.2.7 0.2.7.3.698 Ho spita .3.805334 084.8 l .8 2019-12-06 2019-12-06 Outpatient A_Byrd [facility] 201 [place] 03:14:00 03:14:00 020 Medical Group 2019-12-06 2019-12-06 Leonard Guzman [facility] [place] - [id number] M atagor 00:00:00 00:00:00 MD Joana: Discovery ma [address] [place] [address], [facility] [address] , Ph. 2019-12-02 2019-12-02 Outpatient A_Byrd [facility] 2557- 201 [place] 02:45:00 02:45:00 016 Medical Group 2019-12-02 2019-12-02 Outpatient A_Byrd MM MM 2557- 201 [place] 02:45:00 02:45:00 017 Medical Group 2019-12-02 2019-12-02 [place] [id number] 201 [place] 02:45:00 02:45:00 019 Medical Group 2019-12-02 2019-12-02 Leonard Guzman MM [place] - [id number] M atagor 00:00:00 00:00:00 MD Joana: Discovery ma [address] [place] [address] , Ph. 2019-12-01 2019-12-01 Elier Gutierrez.2.840.1 [id number] Methodi 00:00:00 00:00:[address] [place] 3.430.2.7 Hospit a .3.774273 l .8 2019-11-15 2019-11-15 Outpatient Zuniga_F MMG MMG 2558-2 [id number] [place] 12:23:00 12:23:00 929 [facility] 2019-11-15 2019-11-15 Leonard Guzman MM [place] - [id number] M atagor 00:00:00 00:00:00 MD Joana: [address] [address] , Ph. 2019-11-14 2019-11-14 Outpatient Zuniga_F MMG MMG 2558-2 0200 [place] 02:01:00 02:01:00 928 Medical [facility] 2019-10-03 2019-10-03 Outpatient Zuniga_F MMG MMG 2558-2 0200 [place] 04:27:00 04:27:00 817 [facility] 2019-10-03 2019-10-03 Master MM [place] - [id number] [place] 00:00:00 00:00:00 Lauren Soriano Medical MD: [address] [place] [address] , Ph. 2019-09-27 2019-09-27 Outpatient A_Byrd MMG MMG 2558-20 200 [place] 04:34:00 04:34:00 811 Medical Group 2019-09-26 2019-09-26 Outpatient A_Byrd MMG MMG 2558-20 200 [place] 04:13:00 04:13:00 810 Medical Group 2019-09-26 2019-09-26 Master MM [place] - [id number] [place] 00:00:00 00:00:00 Alexx [facility] Medical MD: [address] [place] [address], [place] [address] , Ph. 2019-07-21 2019-07-21 Outpatient A_Byrd MMG MM 2558-20 200 [place] 05:25:00 05:25:00 604 [facility] 2019-07-21 2019-07-21 Leonard N MM [place] - [id number] M atagor 00:00:00 00:00:00 MD Joana: [address] [place] [address] , Ph. 2019-07-13 2019-07-13 Outpatient A_Byrd MMG MM 2558-20 200 [place] 11:01:00 11:01:[address] [place] [address] 2018-12-31 2018-12-31 Leonard N MM [place] - [id number] M atagor 00:00:00 00:00:00 MD Joana: [address] [place] [address] , Ph. 2018-12-06 2018-12-06 Leonard N MMG [place] - [id number] M atagor 00:00:00 00:00:00 MD Joana: [address] [place] [address] , Ph. 2018-11-22 2018-11-22 Leonard Guzman MMG [place] - [id number] M atagor 00:00:00 00:00:00 MD Joana: [address] [place] [address] , Ph. 2018-11-09 2018-11-09 Leonard Guzman MMG [place] - [id number] M atagor 00:00:00 00:00:00 MD Joana: [address], [facility], [place] [place] [address] , Ph. 2018-09-22 2018-09-22 Leonard Guzman MM [place] - [id number] M atagor 00:00:00 00:00:00 MD Joana: [address], [place] [address], [facility], [place] [place] [address] , Ph. 2018-09-09 2018-09-09 Leonard Guzman MM [place] - [id number] M atagor 00:00:00 00:00:00 MD Joana: [address], [facility] 201, [facility], [place] [address] , Ph. 2018-08-30 2018-08-31 [id number] 09:55:00 18:44:00 Outpatient r Filippo 01 l [facility] 2018-08-30 2018-08-30 Outpatient [facility] 7501 04:55:00 04:55:00 [facility] 2018-03-09 2018-03-09 Leonard Guzman MM [place] - [id number] M atagor 00:00:00 00:00:00 MD Joana: [address], [facility] 200, [facility], [facility] [place] [address] , Ph. Results Test Description Test Time Test Comments Results Result [facility] e Comments - XR CYSTOGRAM 2020-12-12 11:48:00 [facility] : 1935 Sex: M Patie nt Name: BECKY YANES Unit No: [id number] EXAMS: CPT CODE: [id number] XR CYSTOGRAM [id number] Location: H59 EXAM: - XR CYSTOGRAM INDICATION: [id number] COMPARISON: None. TECHNIQUE: Approximately 200 mL of Cysto-Conray II was infused through the patient's existing Frey catheter. Early, delayed filling, and post void radiographs were obtained in multiple projections. FLUOROSCOPY TIME: 2.5 minutes. FLUOROSCOPIC IMAGES: 16 images. DISCUSSION: Preliminary radiograph demonstrates a Rigler sign of the colon, suggestive of intraperitoneal free air. Upon bladder filling, there is a slightly irregular appearance of the bladder dome, which is nonspecific, with possibilities including postsurgical change and/or nonspecific bladder wall thickening. No extravasated contrast is identified during filling or following voiding. IMPRESSION: 1. No evidence of extravasation or leak. 2. Slightly irregular appearance of the bladder dome. 3. Incidental note of intraperitoneal free air, which may be postoperative in etiology given recent history of surgery. at 1148 Reported and signed by: ELIAN PABON M.D. CC: Dory Macias MD; Sam Church MD Technologist: Brenden Cai Fluoro Time: DAP (Gy m2): Air Kerma (mGy): Trscr Dt/Tm: 12/12/2020 (1148) by:[email or web address] Printed Date/Time: 12/12/2020 (1151) Name: EBCKY YANES [facility] Phys: Sam Solomon MD [address] : 1935 Age: 85 Sex: [place] [address] Loc: P.RAD Exam Date: 12/12/2020 Status: REG CLI PH: FAX: PAGE 1 Signed Report GLUBED 2020-12-07 11:44:00 Test Item Value Reference Range Interpretation Comme nts GLUBED (test code = GLUBED) 147 MG/DL 70-105 H CBC W/MANUAL [id number] 08:32:00 Test Item Value Reference Range Interpretation Comments WHITE BLOOD CELL (test code = 8.0 x10 3/uL 4.8-10.8 N WBC) RED BLOOD CELL (test code = 2.45 x10 6/uL 4.70-6.10 L RBC) HEMOGLOBIN (test code = HGB) 8.2 g/dL 14.0-18.0 L HEMATOCRIT (test code = HCT) 23.9 % 42.0-52.0 L MEAN CELL VOLUME (test code = 97.6 fL 80.0-94.0 H MCV) MEAN CELL HGB (test code = MCH) 33.5 pg 27-31 H MEAN CELL HGB CONCENTRATION 34.3 G/DL 33-36.5 N (test code = MCHC) RED CELL DISTRIBUTION WIDTH 13.7 % 12.9-16.9 N (test code = RDW) PLATELET COUNT (test code = 172 x10 3/uL 150-440 N PLT) MEAN PLATELET VOLUME (test code 9.6 fL 8.9-12.4 N = MPV) NEUTROPHIL % (test code = NT%) 79.2 % 42.2-75.2 H LYMPHOCYTE % (test code = LY%) 10.8 % 20.5-51.1 L MONOCYTE % (test code = MO%) 8.7 % 1.7-9.3 N EOSINOPHIL % (test code = EO%) 0.9 % 0.0-7.0 N BASOPHIL % (test code = BA%) 0.1 % 0-2.5 N NEUTROPHIL # (test code = NT#) 6.30 x10 3/uL 1.80-7.70 N LYMPHOCYTE # (test code = LY#) 0.86 x10 3/uL 1.00-4.80 L MONOCYTE # (test code = MO#) 0.69 x10 3/uL 0.00-0.80 N EOSINOPHIL # (test code = EO#) 0.07 x10 3/uL 0.00-0.45 N BASOPHIL # (test code = BA#) 0.01 x10 3/uL 0.0-0.20 N TOTAL CELLS COUNTED (test code 100 #CELLS = TCC) SEGMENTED NEUTROPHILS (test 81 % 49-71 H code = SEG) LYMPHOCYTE (test code = LYMPH) 11 % 20-40 L MONOCYTE (test code = MON) 7 % 3-8 N EOSINOPHIL (test code = EOS) 1 % 1-5 N RBC MORPHOLOGY COMMENT (test Normal NORMAL code = MOC) PLATELET ESTIMATE (test code = ADEQUATE ADEQUATE PLTEST) PLATELET MORPHOLOGY (test code NORMAL NORMAL = PLTMORPH) [id number] 08:05:00 Test Item Value Reference Range Interpretation Comments GLUBED (test code = GLUBED) 120 MG/DL 70-105 H BASIC METABOLIC [id number] 05:28:00 Test Item Value Reference Range Interpretation Comments SODIUM (test code 136 mmol/L 136-145 N Please not e: New = NA) Reference Range Mar 2020 POTASSIUM (test 3.4 mmol/L 3.5-5.1 L code = K) CHLORIDE (test 104 mmol/L 98-107 N Please note: New code = CL) Reference Range Mar 2020 CARBON DIOXIDE 24 mmol/L 20-31 N Please note: New (test code = CO2) Reference Range Mar 2020 GLUCOSE (test code 102 mg/dL 74-106 N Please no te: New = GLU) Reference Range Mar 2020 BLOOD UREA 7 mg/dL 9-23 L Please note: Ne w NITROGEN (test Reference Ran ge Feb code = BUN) 2020 GLOMERULAR >=60 max >60 Units are FILTRATION RATE estimate mL/min mL/min/1. 73m2 The (test code = GFR) estimated glomerular filtration rate is computed usingpatient ra ce, age (>18), sex, and serum creatinin e. If anyof the neede d data elements a re missing the Laboratory glenn ot compute an estimation of t he glomerular filtration rate . CREATININE (test 0.50 mg/dL 0.70-1.30 L Please note : New code = CREAT) Reference Rang e Mar 2020 CALCIUM (test code 7.5 mg/dL 8.7-10.4 L Please no te: New = CA) Reference Range Mar 2020 [id number] 05:28:00 Test Item Value Reference Range Interpretation Comments MAGNESIUM (test code = 1.7 mg/dL 1.6-2.6 N Pleas e note: New MAG) Reference Range Mar 2020 [id number] 20:38:00 Test Item Value Reference Range Interpretation Comments GLUBED (test code = GLUBED) 123 MG/DL 70-105 H [id number] 17:32:00 Test Item Value Reference Range Interpretation Comments GLUBED (test code = GLUBED) 110 MG/DL 70-105 H [id number] 17:15:00 Test Item Value Reference Range Interpretation Comments SURGICAL (test code = SR) --------RUN DATE: 12/31/20 [facility] - LAB PAGE 1 RUN TIME: 1717 Specimen Inquiry RUN USER: INTERFACE --------PATIENT: BECKY YANES LOC: P.5N POD B U #: [id number] AGE/SX: 85/M ROOM: [facility] RE12/04/20REG DR: Stevie Ulloa MD : 34 BED: 1 DIS: 12/07/20 STATUS: DIS IN TLOC: -------- SPEC #: [id number] RECD: 12/05/20 STATUS: WILFRID SHELTON #: [id number] IVETTE: 12/04/[address] [facility] [address]: Stevie Ulloa MD ENTERED: 12/05/20 SP TYPE: SURGICAL OTHR DR: Dory Macias MD,Enrico Colunga MD MDORDERED: [id number], ANATOMIC SPEC HISTOLOGY: TISSUE ID BLK PCS RAINER LEV / PROCEDURE DISPOSITION ____ ___ ___ ___ ___ COLON NOS A 8 1 TISSUES: A. COLON NOS - Colon and Partial Bladder ADDENDUM FINDINGS Addendum #1 Entered: 12/31/20114 BIOMARKER RESULT A. MISMATCH REPAIR (MMR) TESTING 1. MISMATCH REPAIR RESULTSMLH1: Intact nuclear expression.MSH2: Intact nuclear expression.MSH6: Intact nuclear expression.PMS2: Intact nuclear expression. 2. MISMATCH REPAIR INTERPRETATIONNo loss of nuclear expression of MMR proteins. 3. MICROSATELLITE INSTABILITY (MSI) INTERPRETATIONMSI stable. NOTE: The immunohistochemistry technical component (including adequate staining andcontrols) of all these biomarkers was carried out by [facility]. Theprofessional interpretation (code [id number]) was performed by Dr. Sammy Morrissey MD, CAP,ASCP. 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 Tumor adherence/invasion to urinary bladder by surgical report. Tumor invasion of pericolonic fatty tissue. No lymphovascular invasion. No perineural infiltration. No presurgical therapy. Adequate margins of resection. Regional lymph nodes sampled = 16 Regional lymph nodes involved by tumor = 0 Pathologic stage: pT4b, pN0, pMX Note: This report was given to Dr. Rivas on 02/05/2021 pm and the case commented with him. GROSS DESCRIPTION The specimen is received in formalin identified with the patient's name and labeled "colonand partial bladder". The specimen consists of several parts. Three of these are segments of bowel, about 1.0 cm in maximum length, with attached fungating tumor, thelargest tumor being 4.0 x 2.0 x 1.5 cm. Sections from them are submitted in cassettesA1 and A2. Another portion of the specimen is about a 12.0 cm length of bowel which is focally rented,showing a protruding tumor. A section from the margin of resection that is open issubmitted in cassette A3 and from the opposite margin which is stapled in cassette A4.This specimen is opened through its antimesenteric border to show a circumferential tumorthat extends for 4.0 cm and penetrates the wall and appears as a protuberance in themesentery. The maximum thickness of the tumor is estimated to be 3.0 cm. A section from the tumor is submitted in cassette A5, from mesenteric lymph nodes in cassettes A6 and A7, and from a prominent artery in cassette A8. CM/ph Technical component performed at [facility] [facility], [facility], [address] CONTINUED ON NEXT PAGE --------RUN DATE: 12/31/20 [facility] - LAB PAGE 3 RUN TIME: 1717 Specimen Inquiry RUN USER: INTERFACE --------SPEC #: [id number] PATIENT: BECKY YANES #[id number] (Continued) CLINICAL INFORMATION Colon cancer. Signed SIGNATURE ON FILE Sammy Morrissey MD 12/06/20 1715 -------- END OF REPORT [id number] 12:36:00 Test Item Value Reference Range Interpretation Comments GLUBED (test code = GLUBED) 169 MG/DL 70-105 H [id number] 09:57:00 Test Item Value Reference Range Interpretation Comments GLUBED (test code = GLUBED) 94 MG/DL 70-105 N BASIC METABOLIC [id number] 05:06:00 Test Item Value Reference Range Interpretation Comments SODIUM (test code 136 mmol/L 136-145 N Please not e: New = NA) Reference Range Mar 2020 POTASSIUM (test 3.7 mmol/L 3.5-5.1 N code = K) CHLORIDE (test 104 mmol/L 98-107 N Please note: New code = CL) Reference Range Mar 2020 CARBON DIOXIDE 22 mmol/L 20-31 N Please note: New (test code = CO2) Reference Range Mar 2020 GLUCOSE (test code 85 mg/dL 74-106 N Please no te: New = GLU) Reference Range Mar 2020 BLOOD UREA 9 mg/dL 9-23 N Please note: Ne w NITROGEN (test Reference Ran ge Feb code = BUN) 2020 GLOMERULAR >=60 max >60 Units are FILTRATION RATE estimate mL/min mL/min/1. 73m2 The (test code = GFR) estimated glomerular filtration rate is computed usingpatient ra ce, age (>18), sex, and serum creatinin e. If anyof the neede d data elements a re missing the Laboratory [facility] ot compute an estimation of t he glomerular filtration rate . CREATININE (test 0.60 mg/dL 0.70-1.30 L Please note : New code = CREAT) Reference Rang e Mar 2020 CALCIUM (test code 7.3 mg/dL 8.7-10.4 L Please no te: New = CA) Reference Range Mar 2020 [id number] 05:06:00 Test Item Value Reference Range Interpretation Comments MAGNESIUM (test code = 1.5 mg/dL 1.6-2.6 L Pleas e note: New MAG) Reference Range Mar 2020 CBC W/AUTO [id number] 04:51:00 Test Item Value Reference Range Interpretation Comments WHITE BLOOD CELL (test code = 7.1 x10 3/uL 4.8-10.8 N WBC) RED BLOOD CELL (test code = 2.62 x10 6/uL 4.70-6.10 L RBC) HEMOGLOBIN (test code = HGB) 8.8 g/dL 14.0-18.0 L HEMATOCRIT (test code = HCT) 25.7 % 42.0-52.0 L MEAN CELL VOLUME (test code = 98.1 fL 80.0-94.0 H MCV) MEAN CELL HGB (test code = MCH) 33.6 pg 27-31 H MEAN CELL HGB CONCENTRATION 34.2 G/DL 33-36.5 N (test code = MCHC) RED CELL DISTRIBUTION WIDTH 14.0 % 12.9-16.9 N (test code = RDW) PLATELET COUNT (test code = 193 x10 3/uL 150-440 N PLT) MEAN PLATELET VOLUME (test code 9.8 fL 8.9-12.4 N = MPV) NEUTROPHIL % (test code = NT%) 74.3 % 42.2-75.2 N LYMPHOCYTE % (test code = LY%) 15.4 % 20.5-51.1 L MONOCYTE % (test code = MO%) 9.4 % 1.7-9.3 H EOSINOPHIL % (test code = EO%) 0.4 % 0.0-7.0 N BASOPHIL % (test code = BA%) 0.1 % 0-2.5 N NEUTROPHIL # (test code = NT#) 5.28 x10 3/uL 1.80-7.70 N LYMPHOCYTE # (test code = LY#) 1.10 x10 3/uL 1.00-4.80 N MONOCYTE # (test code = MO#) 0.67 x10 3/uL 0.00-0.80 N EOSINOPHIL # (test code = EO#) 0.03 x10 3/uL 0.00-0.45 N BASOPHIL # (test code = BA#) 0.01 x10 3/uL 0.0-0.20 N [id number] 21:24:00 Test Item Value Reference Range Interpretation Comments GLUBED (test code = GLUBED) 111 MG/DL 70-105 H [id number] 18:16:00 Test Item Value Reference Range Interpretation Comments GLUBED (test code = GLUBED) 101 MG/DL 70-105 N [id number] 11:26:00 Test Item Value Reference Range Interpretation Comments GLUBED (test code = GLUBED) 174 MG/DL 70-105 H [id number] 08:23:00 Test Item Value Reference Range Interpretation Comments GLUBED (test code = GLUBED) 150 MG/DL 70-105 H BASIC METABOLIC [id number] 04:47:00 Test Item Value Reference Range Interpretation Comments SODIUM (test code 134 mmol/L 136-145 L Please not e: New = NA) Reference Range Mar 2020 POTASSIUM (test 3.9 mmol/L 3.5-5.1 N code = K) CHLORIDE (test 102 mmol/L 98-107 N Please note: New code = CL) Reference Range Mar 2020 CARBON DIOXIDE 22 mmol/L 20-31 N Please note: New (test code = CO2) Reference Range Mar 2020 GLUCOSE (test code 175 mg/dL 74-106 H Please no te: New = GLU) Reference Range Mar 2020 BLOOD UREA 12 mg/dL 9-23 N Please note: Ne w NITROGEN (test Reference Ran ge Feb code = BUN) 2020 GLOMERULAR >=60 max >60 Units are FILTRATION RATE estimate mL/min mL/min/1. 73m2 The (test code = GFR) estimated glomerular filtration rate is computed usingpatient ra ce, age (>18), sex, and serum creatinin e. If anyof the neede d data elements a re missing the Laboratory [facility] ot compute an estimation of t he glomerular filtration rate . CREATININE (test 0.70 mg/dL 0.70-1.30 N Please note : New code = CREAT) Reference Rang e Mar 2020 CALCIUM (test code 8.0 mg/dL 8.7-10.4 L Please no te: New = CA) Reference Range Mar 2020 [id number] 04:47:00 Test Item Value Reference Range Interpretation Comments MAGNESIUM (test code = 1.7 mg/dL 1.6-2.6 N Pleas e note: New MAG) Reference Range Mar 2020 CBC W/AUTO [id number] 04:24:00 Test Item Value Reference Range Interpretation Comments WHITE BLOOD CELL (test code = 14.2 x10 3/uL 4.8-10.8 H WBC) RED BLOOD CELL (test code = 2.95 x10 6/uL 4.70-6.10 L RBC) HEMOGLOBIN (test code = HGB) 9.9 g/dL 14.0-18.0 L HEMATOCRIT (test code = HCT) 28.9 % 42.0-52.0 L MEAN CELL VOLUME (test code = 98.0 fL 80.0-94.0 H MCV) MEAN CELL HGB (test code = 33.6 pg 27-31 H MCH) MEAN CELL HGB CONCENTRATION 34.3 G/DL 33-36.5 N (test code = MCHC) RED CELL DISTRIBUTION WIDTH 13.7 % 12.9-16.9 N (test code = RDW) PLATELET COUNT (test code = 216 x10 3/uL 150-440 N PLT) MEAN PLATELET VOLUME (test 9.8 fL 8.9-12.4 N code = MPV) NEUTROPHIL % (test code = NT%) 87.0 % 42.2-75.2 H LYMPHOCYTE % (test code = LY%) 4.6 % 20.5-51.1 L MONOCYTE % (test code = MO%) 7.8 % 1.7-9.3 N EOSINOPHIL % (test code = EO%) 0.1 % 0.0-7.0 N BASOPHIL % (test code = BA%) 0.1 % 0-2.5 N NEUTROPHIL # (test code = NT#) 12.39 x10 3/uL 1.80-7.70 H LYMPHOCYTE # (test code = LY#) 0.66 x10 3/uL 1.00-4.80 L MONOCYTE # (test code = MO#) 1.11 x10 3/uL 0.00-0.80 H EOSINOPHIL # (test code = EO#) 0.01 x10 3/uL 0.00-0.45 N BASOPHIL # (test code = BA#) 0.01 x10 3/uL 0.0-0.20 N [id number] 23:51:00 Test Item Value Reference Range Interpretation Comments GLUBED (test code = GLUBED) 198 MG/DL 70-105 H [id number] 20:57:00 Test Item Value Reference Range Interpretation Comments GLUBED (test code = GLUBED) 167 MG/DL 70-105 H [id number] 14:06:00 Test Item Value Reference Range Interpretation Comments GLUBED (test code = GLUBED) 122 MG/DL 70-105 H COVID Asymptomatic IH [id number] 11:56:00 Test Item Value Reference Interpretation Comments Range COVID Negative Negative A negative resu lt does not Asymptomatic IH preclude the SARS-COV-2 NTX (test code = viralinfect ion and should not COVNONPUINTX) be used as the sole basis forpatient mauricio gement decisions. Nega tive results must becombined with clinical observations, p atient history, andepidemiologi jenifer information. Vi ral levels in clinicalsamples below the detection limit of the assay could lead tone gative results. This test was p erformed using the [employer] Smart TM COVID-19 PCRassay. This test was developed and i ts performancechar acteristics were determined by [facility]. Thi s test has notbeen FDA dot ared or approved. This test is authorized by t heFDA under Emergency Use Authorization(E UA). The EUA willremain in e ffect unless it is terminated o r revoked by FDA . Testing p arameters have not been valida ugo for screeningasympt omatic patients. This test was validated accor ding to the FDA's guidanced ocument "Policy for Diagnostics testing in LaboratoriesCer tified to Perform High Co mplexity Testing under C LINDA". First test? UnknownEmployed in Healthcare? UnknownSymptomatic as defined by CDC? UnknownHospitalizeddue to COVID? UnknownIn ICU due to COVID? UnknownResident in a congregate care setting? Unknown? NoAge at collection: YCBC W/AUTO [id number] 11:18:00 Test Item Value Reference Range Interpretation Comments WHITE BLOOD CELL (test code = 7.1 x10 3/uL 4.8-10.8 N WBC) RED BLOOD CELL (test code = 3.20 x10 6/uL 4.70-6.10 L RBC) HEMOGLOBIN (test code = HGB) 10.6 g/dL 14.0-18.0 L HEMATOCRIT (test code = HCT) 31.3 % 42.0-52.0 L MEAN CELL VOLUME (test code = 97.8 fL 80.0-94.0 H MCV) MEAN CELL HGB (test code = MCH) 33.1 pg 27-31 H MEAN CELL HGB CONCENTRATION 33.9 G/DL 33-36.5 N (test code = MCHC) RED CELL DISTRIBUTION WIDTH 14.3 % 12.9-16.9 N (test code = RDW) PLATELET COUNT (test code = 295 x10 3/uL 150-440 N PLT) MEAN PLATELET VOLUME (test code 9.7 fL 8.9-12.4 N = MPV) NEUTROPHIL % (test code = NT%) 73.5 % 42.2-75.2 N LYMPHOCYTE % (test code = LY%) 14.0 % 20.5-51.1 L MONOCYTE % (test code = MO%) 11.6 % 1.7-9.3 H EOSINOPHIL % (test code = EO%) 0.3 % 0.0-7.0 N BASOPHIL % (test code = BA%) 0.3 % 0-2.5 N NEUTROPHIL # (test code = NT#) 5.18 x10 3/uL 1.80-7.70 N LYMPHOCYTE # (test code = LY#) 0.99 x10 3/uL 1.00-4.80 L MONOCYTE # (test code = MO#) 0.82 x10 3/uL 0.00-0.80 H EOSINOPHIL # (test code = EO#) 0.02 x10 3/uL 0.00-0.45 N BASOPHIL # (test code = BA#) 0.02 x10 3/uL 0.0-0.20 N BASIC METABOLIC [id number] 11:08:00 Test Item Value Reference Range Interpretation Comments SODIUM (test code 133 mmol/L 136-145 L Please not e: New = NA) Reference Range Mar 2020 POTASSIUM (test 4.1 mmol/L 3.5-5.1 N code = K) CHLORIDE (test 99 mmol/L 98-107 N Please note: New code = CL) Reference Range Mar 2020 CARBON DIOXIDE 27 mmol/L 20-31 N Please note: New (test code = CO2) Reference Range Mar 2020 GLUCOSE (test code 158 mg/dL 74-106 H Please no te: New = GLU) Reference Range Mar 2020 BLOOD UREA 22 mg/dL 9-23 N Please note: Ne w NITROGEN (test Reference Ran ge Feb code = BUN) 2020 GLOMERULAR >=60 max >60 Units are FILTRATION RATE estimate mL/min mL/min/1. 73m2 The (test code = GFR) estimated glomerular filtration rate is computed usingpatient ra ce, age (>18), sex, and serum creatinin e. If anyof the neede d data elements a re missing the Laboratory [facility] ot compute an estimation of t he glomerular filtration rate . CREATININE (test 0.80 mg/dL 0.70-1.30 N Please note : New code = CREAT) Reference Rang e Mar 2020 CALCIUM (test code 8.8 mg/dL 8.7-10.4 N Please no te: New = CA) Reference Range Mar 2020 [id number] 12:32:00 Test Item Value Reference Range Interpretation Comments GLUBED (test code = GLUBED) 165 MG/DL 70-105 H [id number] 08:29:00 Test Item Value Reference Range Interpretation Comments GLUBED (test code = GLUBED) 107 MG/DL 70-105 H BASIC METABOLIC [id number] 06:23:00 Test Item Value Reference Range Interpretation Comments SODIUM (test code 135 mmol/L 136-145 L Please not e: New = NA) Reference Range Mar 2020 POTASSIUM (test 3.7 mmol/L 3.5-5.1 N code = K) CHLORIDE (test 101 mmol/L 98-107 N Please note: New code = CL) Reference Range Mar 2020 CARBON DIOXIDE 28 mmol/L 20-31 N Please note: New (test code = CO2) Reference Range Mar 2020 GLUCOSE (test code 98 mg/dL 74-106 N Please no te: New = GLU) Reference Range Mar 2020 BLOOD UREA 6 mg/dL 9-23 L Please note: Ne w NITROGEN (test Reference Ran ge Feb code = BUN) 2020 GLOMERULAR >=60 max >60 Units are FILTRATION RATE estimate mL/min mL/min/1. 73m2 The (test code = GFR) estimated glomerular filtration rate is computed usingpatient ra ce, age (>18), sex, and serum creatinin e. If anyof the neede d data elements a re missing the Laboratory [facility] ot compute an estimation of t he glomerular filtration rate . CREATININE (test 0.60 mg/dL 0.70-1.30 L Please note : New code = CREAT) Reference Rang e Mar 2020 CALCIUM (test code 8.1 mg/dL 8.7-10.4 L Please no te: New = CA) Reference Range Mar 2020 [id number] 06:23:00 Test Item Value Reference Range Interpretation Comments MAGNESIUM (test code = 1.7 mg/dL 1.6-2.6 N Pleas e note: New MAG) Reference Range Mar 2020 CBC W/AUTO [id number] 06:19:00 Test Item Value Reference Range Interpretation Comments WHITE BLOOD CELL (test code = 7.7 x10 3/uL 4.8-10.8 N WBC) RED BLOOD CELL (test code = 2.87 x10 6/uL 4.70-6.10 L RBC) HEMOGLOBIN (test code = HGB) 9.4 g/dL 14.0-18.0 L HEMATOCRIT (test code = HCT) 28.1 % 42.0-52.0 L MEAN CELL VOLUME (test code = 97.9 fL 80.0-94.0 H MCV) MEAN CELL HGB (test code = MCH) 32.8 pg 27-31 H MEAN CELL HGB CONCENTRATION 33.5 G/DL 33-36.5 N (test code = MCHC) RED CELL DISTRIBUTION WIDTH 14.8 % 12.9-16.9 N (test code = RDW) PLATELET COUNT (test code = 212 x10 3/uL 150-440 N PLT) MEAN PLATELET VOLUME (test code 10.3 fL 8.9-12.4 N = MPV) NEUTROPHIL % (test code = NT%) 74.2 % 42.2-75.2 N LYMPHOCYTE % (test code = LY%) 14.3 % 20.5-51.1 L MONOCYTE % (test code = MO%) 9.6 % 1.7-9.3 H EOSINOPHIL % (test code = EO%) 1.3 % 0.0-7.0 N BASOPHIL % (test code = BA%) 0.3 % 0-2.5 N NEUTROPHIL # (test code = NT#) 5.71 x10 3/uL 1.80-7.70 N LYMPHOCYTE # (test code = LY#) 1.10 x10 3/uL 1.00-4.80 N MONOCYTE # (test code = MO#) 0.74 x10 3/uL 0.00-0.80 N EOSINOPHIL # (test code = EO#) 0.10 x10 3/uL 0.00-0.45 N BASOPHIL # (test code = BA#) 0.02 x10 3/uL 0.0-0.20 N [id number] 20:48:00 Test Item Value Reference Range Interpretation Comments GLUBED (test code = GLUBED) 113 MG/DL 70-105 H [id number] 16:48:00 Test Item Value Reference Range Interpretation Comments GLUBED (test code = GLUBED) 170 MG/DL 70-105 H [id number] 12:37:00 Test Item Value Reference Range Interpretation Comments GLUBED (test code = GLUBED) 164 MG/DL 70-105 H [id number] 07:47:00 Test Item Value Reference Range Interpretation Comments GLUBED (test code = GLUBED) 107 MG/DL 70-105 H BASIC METABOLIC [id number] 05:30:00 Test Item Value Reference Range Interpretation Comments SODIUM (test code 134 mmol/L 136-145 L Please not e: New = NA) Reference Range Mar 2020 POTASSIUM (test 3.7 mmol/L 3.5-5.1 N code = K) CHLORIDE (test 101 mmol/L 98-107 N Please note: New code = CL) Reference Range Mar 2020 CARBON DIOXIDE 27 mmol/L 20-31 N Please note: New (test code = CO2) Reference Range Mar 2020 GLUCOSE (test code 101 mg/dL 74-106 N Please no te: New = GLU) Reference Range Mar 2020 BLOOD UREA 8 mg/dL 9-23 L Please note: Ne w NITROGEN (test Reference Ran ge Feb code = BUN) 2020 GLOMERULAR >=60 max >60 Units are FILTRATION RATE estimate mL/min mL/min/1. 73m2 The (test code = GFR) estimated glomerular filtration rate is computed usingpatient ra ce, age (>18), sex, and serum creatinin e. If anyof the neede d data elements a re missing the Laboratory [facility] ot compute an estimation of t he glomerular filtration rate . CREATININE (test 0.50 mg/dL 0.70-1.30 L Please note : New code = CREAT) Reference Rang e Mar 2020 CALCIUM (test code 8.7 mg/dL 8.7-10.4 N Please no te: New = CA) Reference Range Mar 2020 [id number] 05:30:00 Test Item Value Reference Range Interpretation Comments MAGNESIUM (test code = 1.6 mg/dL 1.6-2.6 N Pleas e note: New MAG) Reference Range Mar 2020 CBC W/AUTO [id number] 05:11:00 Test Item Value Reference Range Interpretation Comments WHITE BLOOD CELL (test code = 7.6 x10 3/uL 4.8-10.8 N WBC) RED BLOOD CELL (test code = 3.03 x10 6/uL 4.70-6.10 L RBC) HEMOGLOBIN (test code = HGB) 9.9 g/dL 14.0-18.0 L HEMATOCRIT (test code = HCT) 30.2 % 42.0-52.0 L MEAN CELL VOLUME (test code = 99.7 fL 80.0-94.0 H MCV) MEAN CELL HGB (test code = MCH) 32.7 pg 27-31 H MEAN CELL HGB CONCENTRATION 32.8 G/DL 33-36.5 L (test code = MCHC) RED CELL DISTRIBUTION WIDTH 14.8 % 12.9-16.9 N (test code = RDW) PLATELET COUNT (test code = 238 x10 3/uL 150-440 N PLT) MEAN PLATELET VOLUME (test code 9.9 fL 8.9-12.4 N = MPV) NEUTROPHIL % (test code = NT%) 76.2 % 42.2-75.2 H LYMPHOCYTE % (test code = LY%) 13.0 % 20.5-51.1 L MONOCYTE % (test code = MO%) 9.5 % 1.7-9.3 H EOSINOPHIL % (test code = EO%) 0.4 % 0.0-7.0 N BASOPHIL % (test code = BA%) 0.4 % 0-2.5 N NEUTROPHIL # (test code = NT#) 5.76 x10 3/uL 1.80-7.70 N LYMPHOCYTE # (test code = LY#) 0.98 x10 3/uL 1.00-4.80 L MONOCYTE # (test code = MO#) 0.72 x10 3/uL 0.00-0.80 N EOSINOPHIL # (test code = EO#) 0.03 x10 3/uL 0.00-0.45 N BASOPHIL # (test code = BA#) 0.03 x10 3/uL 0.0-0.20 N [id number] 21:09:00 Test Item Value Reference Range Interpretation Comments GLUBED (test code = GLUBED) 130 MG/DL 70-105 H CBC W/AUTO [id number] 17:27:00 Test Item Value Reference Range Interpretation Comments WHITE BLOOD CELL (test code = 11.5 x10 3/uL 4.8-10.8 H WBC) RED BLOOD CELL (test code = 3.02 x10 6/uL 4.70-6.10 L RBC) HEMOGLOBIN (test code = HGB) 10.0 g/dL 14.0-18.0 L HEMATOCRIT (test code = HCT) 30.7 % 42.0-52.0 L MEAN CELL VOLUME (test code = 101.7 fL 80.0-94.0 H MCV) MEAN CELL HGB (test code = MCH) 33.1 pg 27-31 H MEAN CELL HGB CONCENTRATION 32.6 G/DL 33-36.5 L (test code = MCHC) RED CELL DISTRIBUTION WIDTH 17.5 % 12.9-16.9 H (test code = RDW) PLATELET COUNT (test code = 251 x10 3/uL 150-440 N PLT) MEAN PLATELET VOLUME (test code 11.1 fL 8.9-12.4 N = MPV) NEUTROPHIL % (test code = NT%) 84.5 % 42.2-75.2 H LYMPHOCYTE % (test code = LY%) 7.8 % 20.5-51.1 L MONOCYTE % (test code = MO%) 7.1 % 1.7-9.3 N EOSINOPHIL % (test code = EO%) 0.1 % 0.0-7.0 N BASOPHIL % (test code = BA%) 0.2 % 0-2.5 N NEUTROPHIL # (test code = NT#) 9.71 x10 3/uL 1.80-7.70 H LYMPHOCYTE # (test code = LY#) 0.89 x10 3/uL 1.00-4.80 L MONOCYTE # (test code = MO#) 0.81 x10 3/uL 0.00-0.80 H EOSINOPHIL # (test code = EO#) 0.01 x10 3/uL 0.00-0.45 N BASOPHIL # (test code = BA#) 0.02 x10 3/uL 0.0-0.20 N [id number] 17:24:00 Test Item Value Reference Range Interpretation Comments GLUBED (test code = GLUBED) 108 MG/DL 70-105 H [id number] 12:14:00 Test Item Value Reference Range Interpretation Comments GLUBED (test code = GLUBED) 153 MG/DL 70-105 H [id number] 12:14:00 Test Item Value Reference Range Interpretation Comments GLUBED (test code = GLUBED) 168 MG/DL 70-105 H Covid 19 InHouse [id number] 12:00:00 Test Item Value Reference Range Interpretation Comments Covid 19 Negative Negative A negative resu lt does not InHouse NTX preclude the SA RS-COV-2 (test code = viralinfection and should not be [id number]) used as the so le basis forpatient mauricio gement decisions. Negative result s must becombined with clinical o bservations, patient history , andepidemiologi jenifer information. Viral levels in clinicalsamples below the detec tion limit of the assay could lj d tonegative results. This t est was performed using the [employer] SmartTM COVID-19 PCRassay. This test was developed and i ts performancechar acteristics were determined by [facility]. Thi s test has notbeen FDA dot ared or approved. This test is au thorized by theA under Em ergency Use Authorization(E UA). The EUA willremain in e ffect unless it is terminated o r revoked by FDA . Testing monica eters have not been validated for screeningasympt omatic patients. This test was v alidated according to th e FDA's guidancedocumen t "Policy for Diagnostics farshad ting in LaboratoriesCer tified to Perform High Complexity Testing under CLIA". First test? UnknownEmployed in Healthcare? UnknownSymptomatic as defined by CDC? UnknownHospitalizeddue to COVID? UnknownIn ICU due to COVID? UnknownResident in a congregate care setting? Unknown? UnknownAge at collection: CED RFLX MICR CULT IF [id number] 21:40:00 Test Item Value Reference Range Interpretation Comments UA COLOR (test code = YELLOW DISCRIPT YELLOW COLU) UA APPEARANCE (test code = CLEAR DISCRIPT CLEAR APPU) UA GLUCOSE DIPSTICK (test NEGATIVE mg/dL NEGATIVE code = DGLUU) UA BILIRUBIN DIPSTICK NEGATIVE NEGATIVE (test code = BILU) UA KETONE DIPSTICK (test NEGATIVE mg/dL NEGATIVE code = KETU) UA SPECIFIC GRAVITY (test 1.015 1.005-1.030 code = SGU) UA BLOOD DIPSTICK (test NEGATIVE NEGATIVE code = ANA) UA PH DIPSTICK (test code 7.0 5.0-9.0 = LUPE) UA PROTEIN DIPSTICK (test NEGATIVE mg/dL NEGATIVE code = PROU) UA UROBILINOGEN DIPSTICK 1.0 mg/dL 0.2-1.0 (test code = URO) UA NITRITE DIPSTICK (test NEGATIVE NEGATIVE code = HERNÁN) UA LEUKOCYTE ESTERASE SMALL NEGATIVE A DIPSTICK (test code = LEUU) UA WBC (test code = WBCU) 3-5 #WBC/HPF 0-2 A UA RBC (test code = RBCU) NONE SEEN #RBC/HPF 0-2 UA BACTERIA (test code = OCCASIONAL /HPF NONE-TRACE A BACU) UA SQUAMOUS CELLS (test OCCASIONAL /LPF NONE-TRACE code = SQU) UA AMORPHOUS SEDIMENT PRESENT /HPF NONE SEEN (test code = AMORU) Indication for culture: Suprapubic PainUA RFLX MICR CULT IF INDICATED 2020-10-15 21:20:00 Test Item Value Reference Range Interpretation Comments UA COLOR (test code = COLU) YELLOW DISCRIPT YELLOW UA APPEARANCE (test code = CLEAR DISCRIPT CLEAR APPU) UA GLUCOSE DIPSTICK (test NEGATIVE mg/dL NEGATIVE code = DGLUU) UA BILIRUBIN DIPSTICK (test NEGATIVE NEGATIVE code = BILU) UA KETONE DIPSTICK (test code NEGATIVE mg/dL NEGATIVE = KETU) UA SPECIFIC GRAVITY (test 1.015 1.005-1.030 code = SGU) UA BLOOD DIPSTICK (test code NEGATIVE NEGATIVE = ANA) UA PH DIPSTICK (test code = 7.0 5.0-9.0 LUPE) UA PROTEIN DIPSTICK (test NEGATIVE mg/dL NEGATIVE code = PROU) UA UROBILINOGEN DIPSTICK 1.0 mg/dL 0.2-1.0 (test code = URO) UA NITRITE DIPSTICK (test NEGATIVE NEGATIVE code = HERNÁN) UA LEUKOCYTE ESTERASE SMALL NEGATIVE A DIPSTICK (test code = LEUU) UA WBC (test code = WBCU) #WBC/HPF 0-2 UA RBC (test code = RBCU) #RBC/HPF 0-2 UA BACTERIA (test code = /HPF NONE-TRACE BACU) UA SQUAMOUS CELLS (test code /LPF NONE-TRACE = SQU) Indication for culture: Suprapubic [id number] - GLYCOSYLATED [id number] 19:56:00 Test Item Value Reference Range Interpretation Comments GLYCOSYLATED HEMOGLOBIN 5.1 % <5.7 N Diab etic >/= (HA1C) (test code = 6.5%Pred iabetes GLYHGB) 5.7-6.4%Normal < 5.7% B-TYPE NATRIURETIC [id number] 19:56:00 Test Item Value Reference Range Interpretation Comments B-TYPE NATRIURETIC PEPTIDE (test 130 pg/mL <100 H code = BNP) THYROID STIMULATING [id number] 19:56:00 Test Item Value Reference Range Interpretation Comments THYROID STIMULATING 3.72 mIU/mL 0.55-4.78 N Please n ote: New HORMONE (test code = Referen ce Range Mar TSH) 2020 [id number] 19:13:00 Test Item Value Reference Range Interpretation Comments TROPONIN-I (test 92.7 pg/mL 38.73-80.22 Critical Va lue reported code = TROPI) toFirst Name:Levy CALDERON Last Name:TRICIOSRES ULTS READ BACK AND VERIFI EDby P.LAB.IXH, on 0 10/15/20, @ 1913.Please n ote: Units and Refer ence Range have huggins gedFeb 2020 [id number] 18:30:00 Test Item Value Reference Range Interpretation Comments GLUBED (test code = GLUBED) 108 MG/DL 70-105 H COVID 19 INHOUSE [id number] 15:57:00 Test Item Value Reference Range Interpretation Comments COVID 19 INHOUSE NEGATIVE NEGATIVE Negative re sults, from AG (test code = patients wit h symptom onset [id number]) beyondfive days , should be treated as pres umptive and confirmationwit h a molecular assay, if neces gris for patientmanageme nt, may be performed. Nega tive results do not ruleout COVID-19 and should not be u sed as the sole basis fort reatment or patient managem ent decisions, includinginfect ion control decisions. Nega tive results should beconsid ered in the context of a pa tient's recent exposure s,history and the presence of clinical signs and sympt omsconsistent with COVID-19. [id number] 15:53:00 Test Item Value Reference Range Interpretation Comments TROPONIN-I (test 94.6 pg/mL 38.73-80.22 Critical Va lue reported code = TROPI) toFirst Name:Levy CALDERON Last Name:TRICIOSRES ULTS READ BACK AND VERIFI EDby P.LAB.IXH, on 0 10/15/20, @ 1553.Please n ote: Units and Refer ence Range have huggins gedFeb 2020 LACTIC [id number] 15:52:00 Test Item Value Reference Range Interpretation Comments LACTIC ACID (test code = LACT) 1.50 mmol/L 0.5-2.0 N BASIC METABOLIC [id number] 15:52:00 Test Item Value Reference Range Interpretation Comments SODIUM (test code 135 mmol/L 136-145 L Please not e: New = NA) Reference Range Mar 2020 POTASSIUM (test 3.8 mmol/L 3.5-5.1 N code = K) CHLORIDE (test 101 mmol/L 98-107 N Please note: New code = CL) Reference Range Mar 2020 CARBON DIOXIDE 29 mmol/L 20-31 N Please note: New (test code = CO2) Reference Range Mar 2020 GLUCOSE (test code 129 mg/dL 74-106 H Please no te: New = GLU) Reference Range Mar 2020 BLOOD UREA 10 mg/dL 9-23 N Please note: Ne w NITROGEN (test Reference Ran ge Feb code = BUN) 2020 GLOMERULAR >=60 max >60 Units are FILTRATION RATE estimate mL/min mL/min/1. 73m2 The (test code = GFR) estimated glomerular filtration rate is computed usingpatient ra ce, age (>18), sex, and serum creatinin e. If anyof the neede d data elements a re missing the Laboratory [facility] ot compute an estimation of t he glomerular filtration rate . CREATININE (test 0.70 mg/dL 0.70-1.30 N Please note : New code = CREAT) Reference Rang e Mar 2020 CALCIUM (test code 9.0 mg/dL 8.7-10.4 N Please no te: New = CA) Reference Range Mar 2020 LIVER FUNCTION [id number] 15:52:00 Test Item Value Reference Range Interpretation Comments TOTAL PROTEIN (test 5.9 g/dL 5.7-8.2 N Please n ote: New code = PROT) Reference Range Mar 2020 ALBUMIN (test code = 4.0 g/dL 3.2-4.8 N Please note: New ALB) Reference Range Mar 2020 BILIRUBIN TOTAL (test 0.7 mg/dL 0.3-1.2 N Please note: New code = BILT) Reference Range Mar 2020 BILIRUBIN DIRECT (test 0.3 mg/dL <0.3 N Pleas e note: New code = BILD) Reference Range Mar 2020 SGOT/AST (test code = 26 U/L <34 N Please note: New AST) Reference Range Mar 2020 SGPT/ALT (test code = 28 U/L 10-49 N Please note: New ALT) Reference Range Mar 2020 ALKALINE PHOSPHATASE 106 U/L 46-116 N Please note: New (test code = ALKP) Reference Range Mar 2020 CBC W/AUTO [id number] 15:27:00 Test Item Value Reference Range Interpretation Comments WHITE BLOOD CELL (test code = 6.9 x10 3/uL 4.8-10.8 N WBC) RED BLOOD CELL (test code = 3.42 x10 6/uL 4.70-6.10 L RBC) HEMOGLOBIN (test code = HGB) 11.2 g/dL 14.0-18.0 L HEMATOCRIT (test code = HCT) 33.9 % 42.0-52.0 L MEAN CELL VOLUME (test code = 99.1 fL 80.0-94.0 H MCV) MEAN CELL HGB (test code = MCH) 32.7 pg 27-31 H MEAN CELL HGB CONCENTRATION 33.0 G/DL 33-36.5 N (test code = MCHC) RED CELL DISTRIBUTION WIDTH 15.5 % 12.9-16.9 N (test code = RDW) PLATELET COUNT (test code = 306 x10 3/uL 150-440 N PLT) MEAN PLATELET VOLUME (test code 9.5 fL 8.9-12.4 N = MPV) NEUTROPHIL % (test code = NT%) 73.4 % 42.2-75.2 N LYMPHOCYTE % (test code = LY%) 15.9 % 20.5-51.1 L MONOCYTE % (test code = MO%) 9.7 % 1.7-9.3 H EOSINOPHIL % (test code = EO%) 0.3 % 0.0-7.0 N BASOPHIL % (test code = BA%) 0.3 % 0-2.5 N NEUTROPHIL # (test code = NT#) 5.06 x10 3/uL 1.80-7.70 N LYMPHOCYTE # (test code = LY#) 1.10 x10 3/uL 1.00-4.80 N MONOCYTE # (test code = MO#) 0.67 x10 3/uL 0.00-0.80 N EOSINOPHIL # (test code = EO#) 0.02 x10 3/uL 0.00-0.45 N BASOPHIL # (test code = BA#) 0.02 x10 3/uL 0.0-0.20 N - XR CHEST 1 [id number] 15:14:00 [facility] 1935 Sex: MPatient Name: BECKY YANES Unit No: [id number] EXAMS: CPT CODE: [id number] XR CHEST 1 V 82250 EXAM: Chest one view. Location: A1 HISTORY: CODE SEPSIS COMPARISON: None available. FINDINGS:Minimal patchy perihilar airspace opacities are noted. There is questionable vague airspace opacities at periphery of the right lung base. There are no pleural effusions or pneumothorax.Aorta and mediastinal contours are within normal limits. Cardiac silhouette is normal in size. There is diffuse osteopenia. Degenerative changes are noted at bilateral glenohumeraljoints. IMPRESSION: 1. Mild bilateral patchy perihilar opacities which may represent either edema versus pneumonitis. at 1514 Reported and signed by: LEONARD VALENCIA M.D. CC: Dory Macias MD; Rm Leyva MD Technologist: Jose Chandler Fluoro Time: DAP (Gy m2): Air Kerma (mGy): Trscr Dt/Tm: 10/15/2020 (8098) by:[email or web address] Printed Date/Time: (3676) Name: BECKY YANES [facility] Phys: Rm Zazueta MD [address] : 1935 Age: 85 Sex: [place] [address] Loc: KATTY 5 Exam Date: 10/15/2020 Status: ADM IN PH: FAX: PAGE 1 Signed ReportCT Abd/Pelvic External [id number] 19:41:45This exam was not acquired at a Denominational facility and has not been interpreted by a Denominational Provider. The exam was imported into our imaging system.Hm Interface, Radiology Results Incoming - 10/11/2020 7:04 PM CDT This exam was not acquired at a Denominational facility and has not been interpreted by a Denominational Provider. The exam was imported into our imaging system.[facility]Pelvic External [id number] 19:41:45This exam was not acquired at a Denominational facility and has not been interpreted by a Denominational Provider. The exam was imported into our imaging system.Hm Interface, Radiology Results Incoming 10/11/2020 7:04 PM CDT This exam was not acquired at a Denominational facility and has not been interpreted by a Denominational Provider. The exam was imported into our imaging system.[facility]CT Abd/Pelvic External [id number] 19:41:45This exam was not acquired at a Denominational facility and has not been interpreted by a Denominational Provider. The exam was imported into our imaging system.Hm Interface, Radiology Results Incoming - 10/11/2020 7:04 PM CDT This exam was not acquired at a Denominational facility and has not been interpreted by a Denominational Provider. The exam was imported into our imaging system.[facility]elvic External [id number] 19:41:45This exam was not acquired at a Denominational facility and has not been interpreted by a Denominational Provider. The exam was imported into our imaging system.Hm Interface, Radiology Results Incoming 10/11/2020 7:04 PM CDT This exam was not acquired at a Denominational facility and has not been interpreted by a Denominational Provider. The exam was imported into our imaging system.[facility] W Auto Differential panel - [id number] 11:45:00 Test Item Value Reference Range Interpretation Comments white blood count (test code = 6.9 K/uL 4.0-12.3 white blood count) red blood count (test code = red 3.29 M/uL 3.80-5.80 L blood count) hemoglobin (test code = 11.1 g/dL 11.7-17.2 L hemoglobin) hematocrit (test code = 31.7 % 35.0-51.0 L hematocrit) MCV [Entitic volume] (test code = 96.4 fL 83-100 60661-5) mean corpuscular hemoglobin (test 33.7 pg 26.8-33.4 H code = mean corpuscular hemoglobin) mean corpuscular HGB conc (test 35.0 g/dL 30-35 code = mean corpuscular HGB conc) red cell distribution width (test 13.3 % 12.0-14.0 code = red cell distribution width) platelet count (test code = 239 K/uL 175-450 platelet count) mean platelet volume (test code = 9.0 fL 9.4-12.6 L mean platelet volume) Segmented neutrophils/100 69.2 % 44.7-82.4 leukocytes in Blood (test code = 56080-0) Immature granulocytes [#/volume] 0.0 K/uL 0.0-0.03 in Blood (test code = 11527-5) lymphocyte% (test code = 16.8 % 10.0-50.0 lymphocyte%) mono % (test code = mono %) 12.9 % 3.9-13.4 eos % (test code = eos %) 0.4 % 0.0-6.4 Basophils/100 leukocytes in 0.3 % 0.2-1.2 Unspecified specimen (test code = 41753-8) Band form neutrophils [#/volume] 4.79 K/uL 1.78-5.38 in Blood (test code = 00987-2) Lymphocytes [#/volume] in 1.2 K/uL 1.32-3.57 L Unspecified specimen by Automated count (test code = 13278-8) mono # (test code = mono #) 0.89 K/uL 0.30-0.82 H eos # (test code = eos #) 0.03 K/uL 0.04-0.54 L basophil # (test code = basophil 0.02 K/uL 0.01-0.08 #) NRBC% (test code = NRBC%) 0 /100 WBC 0-0.2 NRBC# (test code = NRBC#) 0 K/uL [facility] CenterDifferential panel, method unspecified - [id number] 11:45:00NeutrophilsBandLymphocyteAtypical LymphMonocyteEosinophilBasophilMetamyelocyteMyelocytePromyelocyteBlastsNucleated Red Blood CellPlasma CellAbs Neutrophil Count (Man)Abs Lymph Count (Man)Abs Monocyte Count (Man)Abs Eosinophil Count (Man)Abs Basophil Count (Man)Platelet EstimatePlatelet MorphologyHypoch romasiaPoikilocytosisAnisocytosisMacrocytosisTarget CellsStomatocyteToxic GranulationHypersegmented PolysToxic VacuolationGiant PlateletsOch Regional Medical CenterComprehensive metabolic 2000 panel - Serum or [id number] 11:45:00 Test Item Value Reference Range Interpretation Comments glucose (test code = glucose) 149 mg/dL 82-115 H Urea nitrogen [Mass/volume] in 15 mg/dL 8-23 Serum or Plasma (test code = 3094-0) osmolality calculated,serum (test 257 mOsm/kg 280-300 L code = osmolality calculated,serum) creatinine (test code = 1.0 mg/dL 0.70-1.20 creatinine) glomerular filtration rate (test >60.00 code = glomerular filtration rate) Urea nitrogen/Creatinine [Mass 15.0 12-20 Ratio] in Serum or Plasma (test code = 3097-3) sodium level (test code = sodium 126 mmol/L 135-145 L level) Potassium [Moles/volume] in Body 4.8 mmol/L 3.5-5.2 fluid (test code = 2821-7) chloride level (test code = 93 mmol/L 98-108 L chloride level) CO2 (test code = CO2) 21 mmol/L 21-32 anion gap (test code = anion gap) 16.8 mEq/L 12-20 calcium level (test code = 9.3 mg/dL 8.8-10.2 calcium level) total protein (test code = total 6.7 g/dL 6.6-8.7 protein) albumin (test code = albumin) 4.2 g/dL 3.5-5.2 globulin (test code = globulin) 2.5 gm/dL A/G ratio (test code = A/G ratio) 1.7 >1.0 bilirubin,total (test code = 0.4 mg/dL 0.0-1.2 bilirubin,total) AST/SGOT (test code = AST/SGOT) 13 U/L 15-40 L Alanine aminotransferase 14 U/L 0-41 [Enzymatic activity/volume] in Serum or Plasma (test code = 1742-6) Alkaline phosphatase [Enzymatic 86 U/L 40-130 activity/volume] in Serum or Plasma (test code = 6768-6) [facility] CenterCreatine kinase [Enzymatic activity/volume] in Serum or [id number] 11:45:00 Test Item Value Reference Range Interpretation Comments creatine kinase (test code = creatine 33 U/L 20-200 kinase) [facility] CenterNatriuretic peptide.B prohormone N-Terminal [Mass/volume] in Serum or [id number] 11:45:00 Test Item Value Reference Range Interpretation Comments N-term pro natriuretic peptide 457 pg/mL 0-450 H (test code = N-term pro natriuretic peptide) [facility] CenterTroponin I.cardiac [Mass/volume] in [id number] 11:45:00 Test Item Value Reference Range Interpretation Comments cardiac troponin I (test code = cardiac <0.30 0.0-0.5 troponin I) [facility] CenterCreatine kinase.MB [Mass/volume] in Serum or Plasma 2020-07-04 11:45:00 Test Item Value Reference Range Interpretation Comments Creatine kinase.MB [Mass/volume] in 2.1 NG/mL 0.0-3.6 Serum or Plasma by Immunoassay (test code = 16736-4) [facility] CenterPT/[id number] 11:45:00 Test Item Value Reference Range Interpretation Comments prothrombin time (test code = 9.8 seconds 10.3-12.3 L prothrombin time) INR in Blood by Coagulation assay 0.91 (test code = 36005-6) [facility] Centerpartial thromboplastin [id number] 11:45:00 Test Item Value Reference Range Interpretation Comments INR in Blood by Coagulation 26.4 seconds 22.5-37.0 assay (test code = 90018-6) [facility] RNA [Presence] in Respiratory specimen by BERRY with probe [id number] 02:30:0861870-2NedcmhqktOch Regional Medical CenterUrinalysis complete panel - [id number] 02:14:00 Test Item Value Reference Range Interpretation Comments Color of Urine by Auto (test lt. yellow code = 49796-5) Appearance of Urine (test code clear clear = 5767-9) Glucose [Mass/volume] in Urine negative negative (test code = 2350-7) bilirubin, urine (test code = negative negative bilirubin, urine) ketone, urine (test code = negative negative ketone, urine) Specific gravity of Urine by <=1.005 1.003-1.030 Automated test strip (test code = 38498-0) Hemoglobin [Presence] in Urine negative negative by Test strip (test code = 5794-3) pH of Urine (test code = 6.500 5-9 2756-5) protein urine (UA) (test code = negative negative protein urine (UA)) Urobilinogen [Presence] in 0.2 E.U./dL 0.2-1.0 Urine (test code = 23256-9) Nitrite [Presence] in Urine by negative negative Test strip (test code = 5802-4) urine leukocyte esterase (test negative negative code = urine leukocyte esterase) Erythrocytes [Presence] in =0-3 0-5 Urine (test code = 39451-7) WBC, urine (test code = WBC, =0-2 0-5 urine) Epithelial cells [Presence] in =0-5 0-5 Urine sediment by Light microscopy (test code = 53414-1) bacteria, urine (test code = none detected none detect bacteria, urine) urine culture added? (test code no = urine culture added?) [facility] W Auto Differential panel - [id number] 11:09:00 Test Item Value Reference Range Interpretation Comments white blood count (test code = 6.2 K/uL 4.0-12.3 white blood count) red blood count (test code = red 3.15 M/uL 3.80-5.80 L blood count) hemoglobin (test code = 10.8 g/dL 11.7-17.2 L hemoglobin) hematocrit (test code = 31.2 % 35.0-51.0 L hematocrit) MCV [Entitic volume] (test code = 99.0 fL 83-100 70500-6) mean corpuscular hemoglobin (test 34.3 pg 26.8-33.4 H code = mean corpuscular hemoglobin) mean corpuscular HGB conc (test 34.6 g/dL 30-35 code = mean corpuscular HGB conc) red cell distribution width (test 12.4 % 12.0-14.0 code = red cell distribution width) platelet count (test code = 194 K/uL 175-450 platelet count) mean platelet volume (test code = 9.2 fL 9.4-12.6 L mean platelet volume) Segmented neutrophils/100 70.0 % 44.7-82.4 leukocytes in Blood (test code = 53453-4) Immature granulocytes [#/volume] 0.0 K/uL 0.0-0.03 H in Blood (test code = 99866-0) lymphocyte% (test code = 14.5 % 10.0-50.0 lymphocyte%) mono % (test code = mono %) 14.5 % 3.9-13.4 H eos % (test code = eos %) 0.2 % 0.0-6.4 Basophils/100 leukocytes in 0.3 % 0.2-1.2 Unspecified specimen (test code = 90339-9) Band form neutrophils [#/volume] 4.34 K/uL 1.78-5.38 in Blood (test code = 78028-7) Lymphocytes [#/volume] in 0.9 K/uL 1.32-3.57 L Unspecified specimen by Automated count (test code = 20132-1) mono # (test code = mono #) 0.90 K/uL 0.30-0.82 H eos # (test code = eos #) 0.01 K/uL 0.04-0.54 L basophil # (test code = basophil 0.02 K/uL 0.01-0.08 #) NRBC% (test code = NRBC%) 0 /100 WBC 0-0.2 NRBC# (test code = NRBC#) 0 K/uL [facility] CenterDifferential panel, method unspecified - [id number] 11:09:00NeutrophilsBandLymphocyteAtypical LymphMonocyteEosinophilBasophilMyelocyteNucleated Red Blood CellPlatelet EstimatePlatelet MorphologyPoikilocytosisAnisocytosisMacrocytosisToxic GranulationOch [facility] Medical CenterComprehensive metabolic 2000 panel - Serum or [id number] 11:09:00 Test Item Value Reference Range Interpretation Comments Glucose [Mass/volume] in Serum or 175 mg/dL 82-115 H Plasma (test code = 2345-7) Urea nitrogen [Mass/volume] in 6 mg/dL 8-23 L Serum or Plasma (test code = 3094-0) osmolality calculated,serum (test 253 mOsm/kg 280-300 L code = osmolality calculated,serum) creatinine (test code = 0.7 mg/dL 0.70-1.20 creatinine) glomerular filtration rate (test >60.00 code = glomerular filtration rate) Urea nitrogen/Creatinine [Mass 8.6 12-20 L Ratio] in Serum or Plasma (test code = 3097-3) sodium level (test code = sodium 125 mmol/L 135-145 L level) potassium level (test code = 3.9 mmol/L 3.5-5.2 potassium level) chloride level (test code = 91 mmol/L 98-108 L chloride level) CO2 (test code = CO2) 23 mmol/L 21-32 anion gap (test code = anion gap) 14.9 mEq/L 12-20 calcium level (test code = 9.0 mg/dL 8.8-10.2 calcium level) total protein (test code = total 6.2 g/dL 6.6-8.7 L protein) albumin (test code = albumin) 4.0 g/dL 3.5-5.2 globulin (test code = globulin) 2.2 gm/dL A/G ratio (test code = A/G ratio) 1.8 >1.0 bilirubin,total (test code = 0.5 mg/dL 0.0-1.2 bilirubin,total) AST/SGOT (test code = AST/SGOT) 15 U/L 15-40 Alanine aminotransferase 12 U/L 0-41 [Enzymatic activity/volume] in Serum or Plasma (test code = 1742-6) Alkaline phosphatase [Enzymatic 82 U/L 40-130 activity/volume] in Serum or Plasma (test code = 6768-6) [facility] CenterAmylase [Enzymatic activity/volume] in Serum or Plasma 2020-02-16 11:09:00 Test Item Value Reference Range Interpretation Comments Amylase [Enzymatic activity/volume] in 45 U/L 28-100 Serum or Plasma (test code = 1798-8) [facility] CenterLipase [Enzymatic activity/volume] in Serum or Plasma 2020-02-16 11:09:00 Test Item Value Reference Range Interpretation Comments lipase (test code = lipase) 23 U/L 13-60 [facility] metabolic 2000 panel - Serum or [id number] 01:05:00 Test Item Value Reference Range Interpretation Comments Glucose [Mass/volume] in Serum or 119 mg/dL 82-115 H Plasma (test code = 2345-7) Urea nitrogen [Mass/volume] in 15 mg/dL 8-23 Serum or Plasma (test code = 3094-0) osmolality calculated,serum (test 263 mOsm/kg 280-300 L code = osmolality calculated,serum) creatinine (test code = 0.7 mg/dL 0.70-1.20 creatinine) glomerular filtration rate (test >60.00 code = glomerular filtration rate) Urea nitrogen/Creatinine [Mass 21.4 12-20 H Ratio] in Serum or Plasma (test code = 3097-3) sodium level (test code = sodium 130 mmol/L 135-145 L level) potassium level (test code = 3.9 mmol/L 3.5-5.2 potassium level) chloride level (test code = 96 mmol/L 98-108 L chloride level) CO2 (test code = CO2) 22 mmol/L 21-32 anion gap (test code = anion gap) 15.9 mEq/L 12-20 calcium level (test code = 8.9 mg/dL 8.8-10.2 calcium level) [facility] metabolic 2000 panel - Serum or [id number] 11:28:00 Test Item Value Reference Range Interpretation Comments glucose (test code = glucose) 156 mg/dL 82-115 H Urea nitrogen [Mass/volume] in 14 mg/dL -23 Serum or Plasma (test code = 3094-0) osmolality calculated,serum (test 259 mOsm/kg 280-300 L code = osmolality calculated,serum) creatinine (test code = 0.9 mg/dL 0.70-1.20 creatinine) glomerular filtration rate (test >60.00 code = glomerular filtration rate) Urea nitrogen/Creatinine [Mass 15.6 12-20 Ratio] in Serum or Plasma (test code = 3097-3) sodium level (test code = sodium 127 mmol/L 135-145 L level) Potassium [Moles/volume] in Body 4.5 mmol/L 3.5-5.2 fluid (test code = 2821-7) chloride level (test code = 96 mmol/L 98-108 L chloride level) CO2 (test code = CO2) 21 mmol/L 21-32 anion gap (test code = anion gap) 14.5 mEq/L 12-20 calcium level (test code = 8.8 mg/dL 8.8-10.2 calcium level) [facility] W Auto Differential panel - [id number] 02:22:00 Test Item Value Reference Range Interpretation Comments white blood count (test code = 7.0 K/uL 4.0-12.3 white blood count) red blood count (test code = red 2.91 M/uL 3.80-5.80 L blood count) hemoglobin (test code = 10.1 g/dL 11.7-17.2 L hemoglobin) hematocrit (test code = 29.4 % 35.0-51.0 L hematocrit) MCV [Entitic volume] (test code = 101.0 fL 83-100 H 11314-3) mean corpuscular hemoglobin (test 34.7 pg 26.8-33.4 H code = mean corpuscular hemoglobin) mean corpuscular HGB conc (test 34.4 g/dL 30-35 code = mean corpuscular HGB conc) red cell distribution width (test 13.3 % 12.0-14.0 code = red cell distribution width) platelet count (test code = 197 K/uL 175-450 platelet count) mean platelet volume (test code = 9.3 fL 9.4-12.6 L mean platelet volume) Segmented neutrophils/100 67.4 % 44.7-82.4 leukocytes in Blood (test code = 45130-7) Immature granulocytes [#/volume] 0.1 K/uL 0.0-0.03 H in Blood (test code = 84908-4) lymphocyte% (test code = 17.8 % 10.0-50.0 lymphocyte%) mono % (test code = mono %) 12.8 % 3.9-13.4 eos % (test code = eos %) 1.0 % 0.0-6.4 Basophils/100 leukocytes in 0.3 % 0.2-1.2 Unspecified specimen (test code = 17927-6) Band form neutrophils [#/volume] 4.69 K/uL 1.78-5.38 in Blood (test code = 01065-2) Lymphocytes [#/volume] in 1.2 K/uL 1.32-3.57 L Unspecified specimen by Automated count (test code = 55192-5) mono # (test code = mono #) 0.89 K/uL 0.30-0.82 H eos # (test code = eos #) 0.07 K/uL 0.04-0.54 basophil # (test code = basophil 0.02 K/uL 0.01-0.08 #) NRBC% (test code = NRBC%) 0 /100 WBC 0-0.2 NRBC# (test code = NRBC#) 0 K/uL [facility] CenterDifferential panel, method unspecified - [id number] 02:22:00NeutrophilsBandLymphocyteAtypical LymphMonocyteEosinophilBasophilMyelocytePlatelet EstimatePlatelet M orphologyDifferential comment-[facility] CenterBasi metabolic 2000 panel - Serum or [id number] 02:22:00 Test Item Value Reference Range Interpretation Comments Glucose [Mass/volume] in Serum or 115 mg/dL 82-115 Plasma (test code = 2345-7) Urea nitrogen [Mass/volume] in 10 mg/dL 8-23 Serum or Plasma (test code = 3094-0) osmolality calculated,serum (test 261 mOsm/kg 280-300 L code = osmolality calculated,serum) creatinine (test code = 0.8 mg/dL 0.70-1.20 creatinine) glomerular filtration rate (test >60.00 code = glomerular filtration rate) Urea nitrogen/Creatinine [Mass 12.5 12-20 Ratio] in Serum or Plasma (test code = 3097-3) sodium level (test code = sodium 130 mmol/L 135-145 L level) potassium level (test code = 4.2 mmol/L 3.5-5.2 potassium level) chloride level (test code = 97 mmol/L 98-108 L chloride level) CO2 (test code = CO2) 23 mmol/L 21-32 anion gap (test code = anion gap) 14.2 mEq/L 12-20 calcium level (test code = 9.1 mg/dL 8.8-10.2 calcium level) [facility] CenterMagnesium [Moles/volume] in Unspecified specimen 2019-12-09 02:22:00 Test Item Value Reference Range Interpretation Comments magnesium level (test code = 1.6 mg/dL 1.6-2.4 magnesium level) [facility] 2000 panel - Serum or [id number] 11:05:00 Test Item Value Reference Range Interpretation Comments Glucose [Mass/volume] in Serum or 208 mg/dL 82-115 H Plasma (test code = 2345-7) Urea nitrogen [Mass/volume] in 13 mg/dL 8-23 Serum or Plasma (test code = 3094-0) osmolality calculated,serum (test 260 mOsm/kg 280-300 L code = osmolality calculated,serum) creatinine (test code = 0.8 mg/dL 0.70-1.20 creatinine) glomerular filtration rate (test >60.00 code = glomerular filtration rate) Urea nitrogen/Creatinine [Mass 16.3 12-20 Ratio] in Serum or Plasma (test code = 3097-3) sodium level (test code = sodium 126 mmol/L 135-145 L level) potassium level (test code = 4.4 mmol/L 3.5-5.2 potassium level) chloride level (test code = 92 mmol/L 98-108 L chloride level) CO2 (test code = CO2) 25 mmol/L 21-32 anion gap (test code = anion gap) 13.4 mEq/L 12-20 calcium level (test code = 8.8 mg/dL 8.8-10.2 calcium level) [facility] [Moles/[facility]] in Unspecified specimen 2019-12-08 11:05:00 Test Item Value Reference Range Interpretation Comments magnesium level (test code = 1.6 mg/dL 1.6-2.4 magnesium level) [facility] W Auto Differential panel - [id number] 01:54:00 Test Item Value Reference Range Interpretation Comments white blood count (test code = 5.6 K/uL 4.0-12.3 white blood count) red blood count (test code = red 2.91 M/uL 3.80-5.80 L blood count) hemoglobin (test code = 10.1 g/dL 11.7-17.2 L hemoglobin) hematocrit (test code = 29.3 % 35.0-51.0 L hematocrit) MCV [Entitic volume] (test code = 100.7 fL 83-100 H 03688-8) mean corpuscular hemoglobin (test 34.7 pg 26.8-33.4 H code = mean corpuscular hemoglobin) mean corpuscular HGB conc (test 34.5 g/dL 30-35 code = mean corpuscular HGB conc) red cell distribution width (test 13.2 % 12.0-14.0 code = red cell distribution width) platelet count (test code = 198 K/uL 175-450 platelet count) mean platelet volume (test code = 9.6 fL 9.4-12.6 mean platelet volume) Segmented neutrophils/100 64.1 % 44.7-82.4 leukocytes in Blood (test code = 06392-3) Immature granulocytes [#/volume] 0.0 K/uL 0.0-0.03 H in Blood (test code = 88896-8) lymphocyte% (test code = 19.9 % 10.0-50.0 lymphocyte%) mono % (test code = mono %) 13.5 % 3.9-13.4 H eos % (test code = eos %) 1.4 % 0.0-6.4 Basophils/100 leukocytes in 0.4 % 0.2-1.2 Unspecified specimen (test code = 82638-1) Band form neutrophils [#/volume] 3.60 K/uL 1.78-5.38 in Blood (test code = 37418-7) Lymphocytes [#/volume] in 1.1 K/uL 1.32-3.57 L Unspecified specimen by Automated count (test code = 36347-4) mono # (test code = mono #) 0.76 K/uL 0.30-0.82 eos # (test code = eos #) 0.08 K/uL 0.04-0.54 basophil # (test code = basophil 0.02 K/uL 0.01-0.08 #) NRBC% (test code = NRBC%) 0 /100 WBC 0-0.2 NRBC# (test code = NRBC#) 0 K/uL [facility] metabolic 2000 panel - Serum or [id number] 01:54:00 Test Item Value Reference Range Interpretation Comments Glucose [Mass/volume] in Serum or 110 mg/dL 82-115 Plasma (test code = 2345-7) Urea nitrogen [Mass/volume] in 13 mg/dL 8-23 Serum or Plasma (test code = 3094-0) osmolality calculated,serum (test 260 mOsm/kg 280-300 L code = osmolality calculated,serum) creatinine (test code = 0.8 mg/dL 0.70-1.20 creatinine) glomerular filtration rate (test >60.00 code = glomerular filtration rate) Urea nitrogen/Creatinine [Mass 16.3 12-20 Ratio] in Serum or Plasma (test code = 3097-3) sodium level (test code = sodium 129 mmol/L 135-145 L level) potassium level (test code = 4.1 mmol/L 3.5-5.2 potassium level) chloride level (test code = 95 mmol/L 98-108 L chloride level) CO2 (test code = CO2) 24 mmol/L 21-32 anion gap (test code = anion gap) 14.1 mEq/L 12-20 calcium level (test code = 9.0 mg/dL 8.8-10.2 calcium level) [facility] W Auto Differential panel - [id number] 12:45:00 Test Item Value Reference Range Interpretation Comments white blood count (test code = 7.4 K/uL 4.0-12.3 white blood count) red blood count (test code = red 2.82 M/uL 3.80-5.80 L blood count) hemoglobin (test code = 10.0 g/dL 11.7-17.2 L hemoglobin) hematocrit (test code = 28.3 % 35.0-51.0 L hematocrit) MCV [Entitic volume] (test code = 100.4 fL 83-100 H 71450-9) mean corpuscular hemoglobin (test 35.5 pg 26.8-33.4 H code = mean corpuscular hemoglobin) mean corpuscular HGB conc (test 35.3 g/dL 30-35 H code = mean corpuscular HGB conc) red cell distribution width (test 13.2 % 12.0-14.0 code = red cell distribution width) platelet count (test code = 179 K/uL 175-450 platelet count) mean platelet volume (test code = 8.6 fL 9.4-12.6 L mean platelet volume) Segmented neutrophils/100 75.5 % 44.7-82.4 leukocytes in Blood (test code = 35061-0) Immature granulocytes [#/volume] 0.1 K/uL 0.0-0.03 H in Blood (test code = 01922-4) lymphocyte% (test code = 9.8 % 10.0-50.0 L lymphocyte%) mono % (test code = mono %) 13.3 % 3.9-13.4 eos % (test code = eos %) 0.3 % 0.0-6.4 Basophils/100 leukocytes in 0.4 % 0.2-1.2 Unspecified specimen (test code = 60561-8) Band form neutrophils [#/volume] 5.62 K/uL 1.78-5.38 H in Blood (test code = 45825-4) Lymphocytes [#/volume] in 0.7 K/uL 1.32-3.57 L Unspecified specimen by Automated count (test code = 80336-6) mono # (test code = mono #) 0.99 K/uL 0.30-0.82 H eos # (test code = eos #) 0.02 K/uL 0.04-0.54 L basophil # (test code = basophil 0.03 K/uL 0.01-0.08 #) NRBC% (test code = NRBC%) 0 /100 WBC 0-0.2 NRBC# (test code = NRBC#) 0 K/uL [facility]Different[facility], method unspecified - [id number] 12:45:00NeutrophilsBandLymphocyteAtypical LymphMonocyteBasophilPlatelet EstimatePlatelet MorphologyMacrocytosisOch Regional Medical CenterPT/[id number] 12:45:00 Test Item Value Reference Range Interpretation Comments prothrombin time (test code = 10.1 seconds 10.3-12.3 L prothrombin time) INR in Blood by Coagulation 0.94 assay (test code = 40647-9) [facility] Centerpartial thromboplastin [id number] 12:45:00 Test Item Value Reference Range Interpretation Comments INR in Blood by Coagulation 26.1 seconds 22.5-37.0 assay (test code = 79349-6) [facility] CenterComprehensive metabolic 2000 panel - Serum or Plasma 2019-12-07 12:45:00 Test Item Value Reference Range Interpretation Comments Glucose [Mass/volume] in Serum or 128 mg/dL 82-115 H Plasma (test code = 2345-7) Urea nitrogen [Mass/volume] in 16 mg/dL 8-23 Serum or Plasma (test code = 3094-0) osmolality calculated,serum (test 247 mOsm/kg 280-300 L code = osmolality calculated,serum) creatinine (test code = 0.7 mg/dL 0.70-1.20 creatinine) glomerular filtration rate (test >60.00 code = glomerular filtration rate) Urea nitrogen/Creatinine [Mass 22.9 12-20 H Ratio] in Serum or Plasma (test code = 3097-3) sodium level (test code = sodium 121 mmol/L 135-145 L level) potassium level (test code = 5.1 mmol/L 3.5-5.2 potassium level) chloride level (test code = 86 mmol/L 98-108 L chloride level) CO2 (test code = CO2) 24 mmol/L 21-32 anion gap (test code = anion gap) 16.1 mEq/L 12-20 calcium level (test code = 9.5 mg/dL 8.8-10.2 calcium level) total protein (test code = total 6.0 g/dL 6.6-8.7 L protein) albumin (test code = albumin) 3.8 g/dL 3.5-5.2 globulin (test code = globulin) 2.2 gm/dL A/G ratio (test code = A/G ratio) 1.7 >1.0 bilirubin,total (test code = 0.4 mg/dL 0.0-1.2 bilirubin,total) AST/SGOT (test code = AST/SGOT) 10 U/L 15-40 L Alanine aminotransferase 10 U/L 0-41 [Enzymatic activity/volume] in Serum or Plasma (test code = 1742-6) Alkaline phosphatase [Enzymatic 69 U/L 40-130 activity/volume] in Serum or Plasma (test code = 6768-6) [facility]Magn[facility] [Moles/volume] in Unspecified specimen 2019-12-07 12:45:00 Test Item Value Reference Range Interpretation Comments magnesium level (test code = 1.5 mg/dL 1.6-2.4 L magnesium level) [facility] CenterCreatine kinase [Enzymatic activity/volume] in Serum or [id number] 12:45:00 Test Item Value Reference Range Interpretation Comments creatine kinase (test code = creatine 25 U/L 20-200 kinase) [facility] CenterNatriuretic peptide.B prohormone N-Terminal [Mass/volume] in Serum or [id number] 12:45:00 Test Item Value Reference Range Interpretation Comments N-term pro natriuretic peptide 292 pg/mL 0-450 (test code = N-term pro natriuretic peptide) [facility] CenterTroponin I.cardiac [Mass/volume] in [id number] 12:45:00 Test Item Value Reference Range Interpretation Comments cardiac troponin I (test code = cardiac <0.30 0.0-0.5 troponin I) [facility] CenterCreatine kinase.MB [Mass/volume] in Serum or Plasma 2019-12-07 12:45:00 Test Item Value Reference Range Interpretation Comments Creatine kinase.MB [Mass/volume] in 1.1 NG/mL 0.0-3.6 Serum or Plasma by Immunoassay (test code = 60297-7) [facility] CenterThyrotropin [Units/volume] in Serum or [id number] 12:45:00 Test Item Value Reference Range Interpretation Comments Thyrotropin [Units/volume] in 4.13 uIU/mL 0.36-3.74 H Serum or Plasma (test code = 3016-3) [facility] [id number] 12:45:00 Test Item Value Reference Range Interpretation Comments Cortisol [Mass/volume] in Serum or 13.9 ug/dL 2.3-11.9 H Plasma --PM trough specimen (test code = 9812-9) [facility] CenterThyroxine (T4) free [Mass/volume] in Serum or Plasma 2019-12-07 12:45:00 Test Item Value Reference Range Interpretation Comments free T4 (test code = free T4) 1.22 NG/dL 0.93-1.7 [facility] CenterTriiodothyronine (T3) Free [Mass/volume] in Serum or [id number] 12:45:00 Test Item Value Reference Range Interpretation Comments free T3 (test code = free T3) 2.01 pg/mL 2.0-4.4 [facility] CenterOsmolality of [id number] 12:45:00 Test Item Value Reference Range Interpretation Comments Osmolality of Urine (test code 495 mosmol/kg . = 2695-5) [facility] CenterUrinalysis complete panel - [id number] 12:40:00 Test Item Value Reference Range Interpretation Comments Color of Urine by Auto (test light yellow code = 23831-6) Appearance of Urine (test code clear clear = 5767-9) Glucose [Presence] in Urine by negative negative Automated test strip (test code = 28829-2) Bilirubin.total [Mass/volume] negative negative in Urine (test code = 1978-6) Ketones [Mass/volume] in Urine negative negative by Automated test strip (test code = 74535-2) Specific gravity of Urine by 1.019 1.003-1.030 Automated test strip (test code = 43875-7) blood urine (test code = blood negative negative urine) pH of Urine (test code = 7.500 5-9 2756-5) protein urine (UA) (test code = negative negative protein urine (UA)) Urobilinogen [Presence] in normal 0.2-1.0 Urine (test code = 09750-5) Nitrite [Presence] in Urine by negative negative Test strip (test code = 5802-4) Leukocyte esterase [Presence] negative negative in Urine by Automated test strip (test code = 18115-3) Erythrocytes [#/volume] in =1-5 0-5 Urine by Automated count (test code = 798-9) Leukocytes [#/area] in Urine <1 0-5 sediment by Automated count (test code = 00803-3) Epithelial cells [Presence] in <1 0-5 Urine sediment by Light microscopy (test code = 40112-7) Bacteria identified in Urine by none detected none detect Culture (test code = 630-4) Casts [#/area] in Urine none detected none detect sediment by Automated count (test code = 88762-4) urine culture added? (test code no = urine culture added?) [facility] metabolic 2000 panel - Serum or [id number] 07:27:00 Test Item Value Reference Range Interpretation Comments glucose (test code = glucose) 117 mg/dL 82-115 H Urea nitrogen [Mass/volume] in 15 mg/dL 8-23 Serum or Plasma (test code = 3094-0) osmolality calculated,serum (test 252 mOsm/kg 280-300 L code = osmolality calculated,serum) creatinine (test code = 0.9 mg/dL 0.70-1.20 creatinine) glomerular filtration rate (test >60.00 code = glomerular filtration rate) Urea nitrogen/Creatinine [Mass 16.7 12-20 Ratio] in Serum or Plasma (test code = 3097-3) sodium level (test code = sodium 124 mmol/L 135-145 L level) Potassium [Moles/volume] in Body 4.4 mmol/L 3.5-5.2 fluid (test code = 2821-7) chloride level (test code = 92 mmol/L 98-108 L chloride level) CO2 (test code = CO2) 24 mmol/L 21-32 anion gap (test code = anion gap) 12.4 mEq/L 12-20 calcium level (test code = 9.0 mg/dL 8.8-10.2 calcium level) [facility] W Auto Differential panel - [id number] 01:10:00 Test Item Value Reference Range Interpretation Comments white blood count (test code = 8.3 K/uL 4.0-12.3 white blood count) red blood count (test code = red 2.88 M/uL 3.80-5.80 L blood count) hemoglobin (test code = 10.0 g/dL 11.7-17.2 L hemoglobin) hematocrit (test code = 29.1 % 35.0-51.0 L hematocrit) MCV [Entitic volume] (test code = 101.0 fL 83-100 H 69845-3) mean corpuscular hemoglobin (test 34.7 pg 26.8-33.4 H code = mean corpuscular hemoglobin) mean corpuscular HGB conc (test 34.4 g/dL 30-35 code = mean corpuscular HGB conc) red cell distribution width (test 13.2 % 12.0-14.0 code = red cell distribution width) platelet count (test code = 191 K/uL 175-450 platelet count) mean platelet volume (test code = 9.9 fL 9.4-12.6 mean platelet volume) Segmented neutrophils/100 80.6 % 44.7-82.4 leukocytes in Blood (test code = 27088-2) Immature granulocytes [#/volume] 0.1 K/uL 0.0-0.03 H in Blood (test code = 60651-7) lymphocyte% (test code = 8.1 % 10.0-50.0 L lymphocyte%) mono % (test code = mono %) 10.3 % 3.9-13.4 eos % (test code = eos %) 0.2 % 0.0-6.4 Basophils/100 leukocytes in 0.1 % 0.2-1.2 L Unspecified specimen (test code = 87471-8) Band form neutrophils [#/volume] 6.68 K/uL 1.78-5.38 H in Blood (test code = 26094-0) Lymphocytes [#/volume] in 0.7 K/uL 1.32-3.57 L Unspecified specimen by Automated count (test code = 32372-1) mono # (test code = mono #) 0.85 K/uL 0.30-0.82 H eos # (test code = eos #) 0.02 K/uL 0.04-0.54 L basophil # (test code = basophil 0.01 K/uL 0.01-0.08 #) NRBC% (test code = NRBC%) 0 /100 WBC 0-0.2 NRBC# (test code = NRBC#) 0 K/uL [facility] CenterDifferential panel, method unspecified - [id number] 01:10:00NeutrophilsBandLymphocyteAtypical LymphMonocyteEosinophilBasophilNucleated Red Blood CellPlatelet EstimatePlatelet MorphologyAnisocytosisToxic GranulationToxic VacuolationDifferential comment-P [facility] CenterComprehensive metabolic 2000 panel - Serum or Plasma 2019-12-06 01:10:00 Test Item Value Reference Range Interpretation Comments Glucose [Mass/volume] in Serum or 140 mg/dL 82-115 H Plasma (test code = 2345-7) Urea nitrogen [Mass/volume] in 15 mg/dL 8-23 Serum or Plasma (test code = 3094-0) osmolality calculated,serum (test 251 mOsm/kg 280-300 L code = osmolality calculated,serum) creatinine (test code = 0.9 mg/dL 0.70-1.20 creatinine) glomerular filtration rate (test >60.00 code = glomerular filtration rate) Urea nitrogen/Creatinine [Mass 16.7 12-20 Ratio] in Serum or Plasma (test code = 3097-3) sodium level (test code = sodium 123 mmol/L 135-145 L level) potassium level (test code = 5.1 mmol/L 3.5-5.2 potassium level) chloride level (test code = 87 mmol/L 98-108 L chloride level) CO2 (test code = CO2) 23 mmol/L 21-32 anion gap (test code = anion gap) 18.1 mEq/L 12-20 calcium level (test code = 9.4 mg/dL 8.8-10.2 calcium level) total protein (test code = total 6.0 g/dL 6.6-8.7 L protein) albumin (test code = albumin) 3.7 g/dL 3.5-5.2 globulin (test code = globulin) 2.3 gm/dL A/G ratio (test code = A/G ratio) 1.6 >1.0 bilirubin,total (test code = 0.4 mg/dL 0.0-1.2 bilirubin,total) AST/SGOT (test code = AST/SGOT) 12 U/L 15-40 L Alanine aminotransferase 11 U/L 0-41 [Enzymatic activity/volume] in Serum or Plasma (test code = 1742-6) Alkaline phosphatase [Enzymatic 70 U/L 40-130 activity/volume] in Serum or Plasma (test code = 6768-6) [facility] SARS CoV + SARS CoV 2 Ag, QL IA, respiratory [id number] 13:57:00 Test Item Value Reference Range Interpretation Comments SARS-CoV - 2 (test code = SARS-CoV - negative 2) [facility] SARS CoV + SARS CoV 2 Ag, QL IA, respiratory [id number] 13:57:00 Test Item Value Reference Range Interpretation Comments SARS-CoV - 2 (test code = SARS-CoV - negative 2) [facility] W Auto Differential panel - [id number] 08:22:00 Test Item Value Reference Range Interpretation Comments white blood count (test code = 5.0 K/uL 4.0-12.3 white blood count) red blood count (test code = red 2.94 M/uL 3.80-5.80 L blood count) hemoglobin (test code = 10.2 g/dL 11.7-17.2 L hemoglobin) hematocrit (test code = 29.4 % 35.0-51.0 L hematocrit) MCV [Entitic volume] (test code = 100.0 fL 83-100 56826-2) mean corpuscular hemoglobin (test 34.7 pg 26.8-33.4 H code = mean corpuscular hemoglobin) mean corpuscular HGB conc (test 34.7 g/dL 30-35 code = mean corpuscular HGB conc) red cell distribution width (test 13.2 % 12.0-14.0 code = red cell distribution width) platelet count (test code = 186 K/uL 175-450 platelet count) mean platelet volume (test code = 9.5 fL 9.4-12.6 mean platelet volume) Segmented neutrophils/100 71.8 % 44.7-82.4 leukocytes in Blood (test code = 91419-2) Immature granulocytes [#/volume] 0.0 K/uL 0.0-0.03 H in Blood (test code = 28436-8) lymphocyte% (test code = 14.3 % 10.0-50.0 lymphocyte%) mono % (test code = mono %) 12.9 % 3.9-13.4 eos % (test code = eos %) 0 % 0.0-6.4 Basophils/100 leukocytes in 0.4 % 0.2-1.2 Unspecified specimen (test code = 37847-5) Band form neutrophils [#/volume] 3.55 K/uL 1.78-5.38 in Blood (test code = 40577-6) Lymphocytes [#/volume] in 0.7 K/uL 1.32-3.57 L Unspecified specimen by Automated count (test code = 20937-8) mono # (test code = mono #) 0.64 K/uL 0.30-0.82 eos # (test code = eos #) 0.00 K/uL 0.04-0.54 L basophil # (test code = basophil 0.02 K/uL 0.01-0.08 #) NRBC% (test code = NRBC%) 0 /100 WBC 0-0.2 NRBC# (test code = NRBC#) 0 K/uL [facility] CenterDifferent[facility], method unspecified - [id number] 08:22:00NeutrophilsBandLymphocyteAtypical LymphMonocyteEosinophilNucleated Red Blood CellPlatelet EstimatePlatelet MorphologyOvalocytesSmudge CellsMaMerit Health WesleyComprehensive metabolic 2000 panel - Serum or [id number] 08:22:00 Test Item Value Reference Range Interpretation Comments Glucose [Mass/volume] in Serum or 139 mg/dL 82-115 H Plasma (test code = 2345-7) Urea nitrogen [Mass/volume] in 7 mg/dL 8-23 L Serum or Plasma (test code = 3094-0) osmolality calculated,serum (test 248 mOsm/kg 280-300 L code = osmolality calculated,serum) creatinine (test code = 0.7 mg/dL 0.70-1.20 creatinine) glomerular filtration rate (test >60.00 code = glomerular filtration rate) Urea nitrogen/Creatinine [Mass 10.0 12-20 L Ratio] in Serum or Plasma (test code = 3097-3) sodium level (test code = sodium 123 mmol/L 135-145 L level) potassium level (test code = 4.6 mmol/L 3.5-5.2 potassium level) chloride level (test code = 86 mmol/L 98-108 L chloride level) CO2 (test code = CO2) 24 mmol/L 21-32 anion gap (test code = anion gap) 17.6 mEq/L 12-20 calcium level (test code = 9.0 mg/dL 8.8-10.2 calcium level) total protein (test code = total 6.1 g/dL 6.6-8.7 L protein) albumin (test code = albumin) 3.8 g/dL 3.5-5.2 globulin (test code = globulin) 2.3 gm/dL A/G ratio (test code = A/G ratio) 1.7 >1.0 bilirubin,total (test code = 0.4 mg/dL 0.0-1.2 bilirubin,total) AST/SGOT (test code = AST/SGOT) 12 U/L 15-40 L Alanine aminotransferase 9 U/L 0-41 [Enzymatic activity/volume] in Serum or Plasma (test code = 1742-6) Alkaline phosphatase [Enzymatic 77 U/L 40-130 activity/volume] in Serum or Plasma (test code = 6768-6) [facility] W Auto Differential panel - [id number] 08:22:00 Test Item Value Reference Range Interpretation Comments white blood count (test code = 5.0 K/uL 4.0-12.3 white blood count) red blood count (test code = red 2.94 M/uL 3.80-5.80 L blood count) hemoglobin (test code = 10.2 g/dL 11.7-17.2 L hemoglobin) hematocrit (test code = 29.4 % 35.0-51.0 L hematocrit) MCV [Entitic volume] (test code = 100.0 fL 83-100 01053-6) mean corpuscular hemoglobin (test 34.7 pg 26.8-33.4 H code = mean corpuscular hemoglobin) mean corpuscular HGB conc (test 34.7 g/dL 30-35 code = mean corpuscular HGB conc) red cell distribution width (test 13.2 % 12.0-14.0 code = red cell distribution width) platelet count (test code = 186 K/uL 175-450 platelet count) mean platelet volume (test code = 9.5 fL 9.4-12.6 mean platelet volume) Segmented neutrophils/100 71.8 % 44.7-82.4 leukocytes in Blood (test code = 89241-9) Immature granulocytes [#/volume] 0.0 K/uL 0.0-0.03 H in Blood (test code = 00681-9) lymphocyte% (test code = 14.3 % 10.0-50.0 lymphocyte%) mono % (test code = mono %) 12.9 % 3.9-13.4 eos % (test code = eos %) 0 % 0.0-6.4 Basophils/100 leukocytes in 0.4 % 0.2-1.2 Unspecified specimen (test code = 23806-3) Band form neutrophils [#/volume] 3.55 K/uL 1.78-5.38 in Blood (test code = 77069-9) Lymphocytes [#/volume] in 0.7 K/uL 1.32-3.57 L Unspecified specimen by Automated count (test code = 47495-1) mono # (test code = mono #) 0.64 K/uL 0.30-0.82 eos # (test code = eos #) 0.00 K/uL 0.04-0.54 L basophil # (test code = basophil 0.02 K/uL 0.01-0.08 #) NRBC% (test code = NRBC%) 0 /100 WBC 0-0.2 NRBC# (test code = NRBC#) 0 K/uL [facility] CenterDifferential panel, method unspecified - [id number] 08:22:00NeutrophilsBandLymphocyteAtypical LymphMonocyteEosinophilNucleated Red Blood CellPlatelet EstimatePlatelet MorphologyOvalocytesSmudge CellsMatagoJasper General HospitalComprehensive metabolic 2000 panel - Serum or [id number] 08:22:00 Test Item Value Reference Range Interpretation Comments Glucose [Mass/volume] in Serum or 139 mg/dL 82-115 H Plasma (test code = 2345-7) Urea nitrogen [Mass/volume] in 7 mg/dL 8-23 L Serum or Plasma (test code = 3094-0) osmolality calculated,serum (test 248 mOsm/kg 280-300 L code = osmolality calculated,serum) creatinine (test code = 0.7 mg/dL 0.70-1.20 creatinine) glomerular filtration rate (test >60.00 code = glomerular filtration rate) Urea nitrogen/Creatinine [Mass 10.0 12-20 L Ratio] in Serum or Plasma (test code = 3097-3) sodium level (test code = sodium 123 mmol/L 135-145 L level) potassium level (test code = 4.6 mmol/L 3.5-5.2 potassium level) chloride level (test code = 86 mmol/L 98-108 L chloride level) CO2 (test code = CO2) 24 mmol/L 21-32 anion gap (test code = anion gap) 17.6 mEq/L 12-20 calcium level (test code = 9.0 mg/dL 8.8-10.2 calcium level) total protein (test code = total 6.1 g/dL 6.6-8.7 L protein) albumin (test code = albumin) 3.8 g/dL 3.5-5.2 globulin (test code = globulin) 2.3 gm/dL A/G ratio (test code = A/G ratio) 1.7 >1.0 bilirubin,total (test code = 0.4 mg/dL 0.0-1.2 bilirubin,total) AST/SGOT (test code = AST/SGOT) 12 U/L 15-40 L Alanine aminotransferase 9 U/L 0-41 [Enzymatic activity/volume] in Serum or Plasma (test code = 1742-6) Alkaline phosphatase [Enzymatic 77 U/L 40-130 activity/volume] in Serum or Plasma (test code = 6768-6) [facility] Differential panel - [id number] 08:22:00 Test Item Value Reference Range Interpretation Comments white blood count (test code = 5.0 K/uL 4.0-12.3 white blood count) red blood count (test code = red 2.94 M/uL 3.80-5.80 L blood count) hemoglobin (test code = 10.2 g/dL 11.7-17.2 L hemoglobin) hematocrit (test code = 29.4 % 35.0-51.0 L hematocrit) MCV [Entitic volume] (test code = 100.0 fL 83-100 02421-9) mean corpuscular hemoglobin (test 34.7 pg 26.8-33.4 H code = mean corpuscular hemoglobin) mean corpuscular HGB conc (test 34.7 g/dL 30-35 code = mean corpuscular HGB conc) red cell distribution width (test 13.2 % 12.0-14.0 code = red cell distribution width) platelet count (test code = 186 K/uL 175-450 platelet count) mean platelet volume (test code = 9.5 fL 9.4-12.6 mean platelet volume) Segmented neutrophils/100 71.8 % 44.7-82.4 leukocytes in Blood (test code = 40833-5) Immature granulocytes [#/volume] 0.0 K/uL 0.0-0.03 H in Blood (test code = 87947-7) lymphocyte% (test code = 14.3 % 10.0-50.0 lymphocyte%) mono % (test code = mono %) 12.9 % 3.9-13.4 eos % (test code = eos %) 0 % 0.0-6.4 Basophils/100 leukocytes in 0.4 % 0.2-1.2 Unspecified specimen (test code = 43633-2) Band form neutrophils [#/volume] 3.55 K/uL 1.78-5.38 in Blood (test code = 58831-5) Lymphocytes [#/volume] in 0.7 K/uL 1.32-3.57 L Unspecified specimen by Automated count (test code = 39546-2) mono # (test code = mono #) 0.64 K/uL 0.30-0.82 eos # (test code = eos #) 0.00 K/uL 0.04-0.54 L basophil # (test code = basophil 0.02 K/uL 0.01-0.08 #) NRBC% (test code = NRBC%) 0 /100 WBC 0-0.2 NRBC# (test code = NRBC#) 0 K/uL [facility], method unspecified - [id number] 08:22:00NeutrophilsBandLymphocyteAtypical LymphMonocyteEosinophilNucleated Red Blood CellPlatelet EstimatePlatelet MorphologyOvalocytesSmudge CellsMaMerit Health WesleyComprehensive metabolic 2000 panel - Serum or [id number] 08:22:00 Test Item Value Reference Range Interpretation Comments Glucose [Mass/volume] in Serum or 139 mg/dL 82-115 H Plasma (test code = 2345-7) Urea nitrogen [Mass/volume] in 7 mg/dL 8-23 L Serum or Plasma (test code = 3094-0) osmolality calculated,serum (test 248 mOsm/kg 280-300 L code = osmolality calculated,serum) creatinine (test code = 0.7 mg/dL 0.70-1.20 creatinine) glomerular filtration rate (test >60.00 code = glomerular filtration rate) Urea nitrogen/Creatinine [Mass 10.0 12-20 L Ratio] in Serum or Plasma (test code = 3097-3) sodium level (test code = sodium 123 mmol/L 135-145 L level) potassium level (test code = 4.6 mmol/L 3.5-5.2 potassium level) chloride level (test code = 86 mmol/L 98-108 L chloride level) CO2 (test code = CO2) 24 mmol/L 21-32 anion gap (test code = anion gap) 17.6 mEq/L 12-20 calcium level (test code = 9.0 mg/dL 8.8-10.2 calcium level) total protein (test code = total 6.1 g/dL 6.6-8.7 L protein) albumin (test code = albumin) 3.8 g/dL 3.5-5.2 globulin (test code = globulin) 2.3 gm/dL A/G ratio (test code = A/G ratio) 1.7 >1.0 bilirubin,total (test code = 0.4 mg/dL 0.0-1.2 bilirubin,total) AST/SGOT (test code = AST/SGOT) 12 U/L 15-40 L Alanine aminotransferase 9 U/L 0-41 [Enzymatic activity/volume] in Serum or Plasma (test code = 1742-6) Alkaline phosphatase [Enzymatic 77 U/L 40-130 activity/volume] in Serum or Plasma (test code = 6768-6) [facility] blood [id number] 08:51:00 Test Item Value Reference Range Interpretation Comments [facility] blood collection sent to [facility] (test code = [facility] blood collection) [facility] blood [id number] 08:51:00 Test Item Value Reference Range Interpretation Comments [facility] (test code = [facility] blood [facility]) [facility] blood [id number] 08:51:00 Test Item Value Reference Range Interpretation Comments [facility] (test code = [facility] blood collection) [facility] W Auto Differential panel - [id number] 07:00:00 Test Item Value Reference Range Interpretation Comments white blood count (test code = 4.4 K/uL 4.0-12.3 white blood count) red blood count (test code = red 2.93 M/uL 3.80-5.80 L blood count) hemoglobin (test code = 10.2 g/dL 11.7-17.2 L hemoglobin) hematocrit (test code = 29.5 % 35.0-51.0 L hematocrit) MCV [Entitic volume] (test code = 100.7 fL 83-100 H 09159-5) mean corpuscular hemoglobin (test 34.8 pg 26.8-33.4 H code = mean corpuscular hemoglobin) mean corpuscular HGB conc (test 34.6 g/dL 30-35 code = mean corpuscular HGB conc) red cell distribution width (test 13.5 % 12.0-14.0 code = red cell distribution width) platelet count (test code = 208 K/uL 175-450 platelet count) mean platelet volume (test code = 9.7 fL 9.4-12.6 mean platelet volume) Segmented neutrophils/100 68.9 % 44.7-82.4 leukocytes in Blood (test code = 44780-7) Immature granulocytes [#/volume] 0.0 K/uL 0.0-0.03 H in Blood (test code = 01919-1) lymphocyte% (test code = 16.0 % 10.0-50.0 lymphocyte%) mono % (test code = mono %) 13.2 % 3.9-13.4 eos % (test code = eos %) 0.5 % 0.0-6.4 Basophils/100 leukocytes in 0.5 % 0.2-1.2 Unspecified specimen (test code = 55085-9) Band form neutrophils [#/volume] 3.02 K/uL 1.78-5.38 in Blood (test code = 36585-9) Lymphocytes [#/volume] in 0.7 K/uL 1.32-3.57 L Unspecified specimen by Automated count (test code = 18526-4) mono # (test code = mono #) 0.58 K/uL 0.30-0.82 eos # (test code = eos #) 0.02 K/uL 0.04-0.54 L basophil # (test code = basophil 0.02 K/uL 0.01-0.08 #) NRBC% (test code = NRBC%) 0 /100 WBC 0-0.2 NRBC# (test code = NRBC#) 0 K/uL [facility] CenterUrinalysis complete [facility] Reflex Culture panel - Urine 2019-11-17 07:00:00 Test Item Value Reference Range Interpretation Comments Color of Urine by Auto (test yellow code = 81979-2) Appearance of Urine (test code clear clear = 5767-9) Glucose [Presence] in Urine by negative negative Automated test strip (test code = 23485-5) Bilirubin.total [Mass/volume] negative negative in Urine (test code = 1977-6) Ketones [Mass/volume] in Urine negative negative by Automated test strip (test code = 24048-8) Specific gravity of Urine by 1.018 1.003-1.030 Automated test strip (test code = 24893-6) blood urine (test code = blood negative negative urine) pH of Urine (test code = 6.500 5-9 2756-5) protein urine (UA) (test code = trace negative protein urine (UA)) Urobilinogen [Presence] in normal 0.2-1.0 Urine (test code = 51455-1) Nitrite [Presence] in Urine by negative negative Test strip (test code = 5802-4) Leukocyte esterase [Presence] negative negative in Urine by Automated test strip (test code = 59713-3) Erythrocytes [#/volume] in =1-5 0-5 Urine by Automated count (test code = 798-9) Leukocytes [#/area] in Urine =1-5 0-5 sediment by Automated count (test code = 49800-4) Epithelial cells [Presence] in <1 0-5 Urine sediment by Light microscopy (test code = 18096-7) Bacteria identified in Urine by none detected none detect Culture (test code = 630-4) Casts [#/area] in Urine none detected none detect sediment by Automated count (test code = 75396-2) urine culture added? (test code no = urine culture added?) [facility] 2000 [facility] - Serum or Plasma 2019-11-17 07:00:00 Test Item Value Reference Range Interpretation Comments Glucose [Mass/volume] in Serum or 177 mg/dL 82-115 H Plasma (test code = 2345-7) Urea nitrogen [Mass/volume] in 8 mg/dL 8-23 Serum or Plasma (test code = 3094-0) osmolality calculated,serum (test 251 mOsm/kg 280-300 L code = osmolality calculated,serum) creatinine (test code = 0.9 mg/dL 0.70-1.20 creatinine) glomerular filtration rate (test >60.00 code = glomerular filtration rate) Urea nitrogen/Creatinine [Mass 8.9 12-20 L Ratio] in Serum or Plasma (test code = 3097-3) sodium level (test code = sodium 123 mmol/L 135-145 L level) potassium level (test code = 4.2 mmol/L 3.5-5.2 potassium level) chloride level (test code = 88 mmol/L 98-108 L chloride level) CO2 (test code = CO2) 23 mmol/L 21-32 anion gap (test code = anion gap) 16.2 mEq/L 12-20 calcium level (test code = 9.1 mg/dL 8.8-10.2 calcium level) total protein (test code = total 5.9 g/dL 6.6-8.7 L protein) albumin (test code = albumin) 3.7 g/dL 3.5-5.2 globulin (test code = globulin) 2.2 gm/dL A/G ratio (test code = A/G ratio) 1.7 >1.0 bilirubin,total (test code = 0.5 mg/dL 0.0-1.2 bilirubin,total) AST/SGOT (test code = AST/SGOT) 11 U/L 15-40 L Alanine aminotransferase 9 U/L 0-41 [Enzymatic activity/volume] in Serum or Plasma (test code = 1742-6) Alkaline phosphatase [Enzymatic 75 U/L 40-130 activity/volume] in Serum or Plasma (test code = 6768-6) [facility] CenterBacteria identified in Urine by [id number] 07:00:00 Test Item Value Reference Range Interpretation Comments Bacteria identified in no growth after 2 Urine by Culture (test days code = 630-4) [facility] Auto Differential panel - [id number] 07:00:00 Test Item Value Reference Range Interpretation Comments white blood count (test code = 4.4 K/uL 4.0-12.3 white blood count) red blood count (test code = red 2.93 M/uL 3.80-5.80 L blood count) hemoglobin (test code = 10.2 g/dL 11.7-17.2 L hemoglobin) hematocrit (test code = 29.5 % 35.0-51.0 L hematocrit) MCV [Entitic volume] (test code = 100.7 fL 83-100 H 74378-9) mean corpuscular hemoglobin (test 34.8 pg 26.8-33.4 H code = mean corpuscular hemoglobin) mean corpuscular HGB conc (test 34.6 g/dL 30-35 code = mean corpuscular HGB conc) red cell distribution width (test 13.5 % 12.0-14.0 code = red cell distribution width) platelet count (test code = 208 K/uL 175-450 platelet count) mean platelet volume (test code = 9.7 fL 9.4-12.6 mean platelet volume) Segmented neutrophils/100 68.9 % 44.7-82.4 leukocytes in Blood (test code = 65511-7) Immature granulocytes [#/volume] 0.0 K/uL 0.0-0.03 H in Blood (test code = 25920-5) lymphocyte% (test code = 16.0 % 10.0-50.0 lymphocyte%) mono % (test code = mono %) 13.2 % 3.9-13.4 eos % (test code = eos %) 0.5 % 0.0-6.4 Basophils/100 leukocytes in 0.5 % 0.2-1.2 Unspecified specimen (test code = 01609-8) Band form neutrophils [#/volume] 3.02 K/uL 1.78-5.38 in Blood (test code = 66631-6) Lymphocytes [#/volume] in 0.7 K/uL 1.32-3.57 L Unspecified specimen by Automated count (test code = 83942-5) mono # (test code = mono #) 0.58 K/uL 0.30-0.82 eos # (test code = eos #) 0.02 K/uL 0.04-0.54 L basophil # (test code = basophil 0.02 K/uL 0.01-0.08 #) NRBC% (test code = NRBC%) 0 /100 WBC 0-0.2 NRBC# (test code = NRBC#) 0 K/uL [facility] Center[facility] Reflex Culture panel - Urine 2019-11-17 07:00:00 Test Item Value Reference Range Interpretation Comments Color of Urine by Auto (test yellow code = 46615-8) Appearance of Urine (test code clear clear = 5767-9) Glucose [Presence] in Urine by negative negative Automated test strip (test code = 94276-7) Bilirubin.total [Mass/volume] negative negative in Urine (test code = 1977-6) Ketones [Mass/volume] in Urine negative negative by Automated test strip (test code = 11508-4) Specific gravity of Urine by 1.018 1.003-1.030 Automated test strip (test code = 43787-6) blood urine (test code = blood negative negative urine) pH of Urine (test code = 6.500 5-9 2756-5) protein urine (UA) (test code = trace negative protein urine (UA)) Urobilinogen [Presence] in normal 0.2-1.0 Urine (test code = 39989-1) Nitrite [Presence] in Urine by negative negative Test strip (test code = 5802-4) Leukocyte esterase [Presence] negative negative in Urine by Automated test strip (test code = 41309-9) Erythrocytes [#/volume] in =1-5 0-5 Urine by Automated count (test code = 798-9) Leukocytes [#/area] in Urine =1-5 0-5 sediment by Automated count (test code = 24007-7) Epithelial cells [Presence] in <1 0-5 Urine sediment by Light microscopy (test code = 45880-0) Bacteria identified in Urine by none detected none detect Culture (test code = 630-4) Casts [#/area] in Urine none detected none detect sediment by Automated count (test code = 46589-3) urine culture added? (test code no = urine culture added?) [facility]Com[facility] 2000 [facility] - Serum or Plasma 2019-11-17 07:00:00 Test Item Value Reference Range Interpretation Comments Glucose [Mass/volume] in Serum or 177 mg/dL 82-115 H Plasma (test code = 2345-7) Urea nitrogen [Mass/volume] in 8 mg/dL 8-23 Serum or Plasma (test code = 3094-0) osmolality calculated,serum (test 251 mOsm/kg 280-300 L code = osmolality calculated,serum) creatinine (test code = 0.9 mg/dL 0.70-1.20 creatinine) glomerular filtration rate (test >60.00 code = glomerular filtration rate) Urea nitrogen/Creatinine [Mass 8.9 12-20 L Ratio] in Serum or Plasma (test code = 3097-3) sodium level (test code = sodium 123 mmol/L 135-145 L level) potassium level (test code = 4.2 mmol/L 3.5-5.2 potassium level) chloride level (test code = 88 mmol/L 98-108 L chloride level) CO2 (test code = CO2) 23 mmol/L 21-32 anion gap (test code = anion gap) 16.2 mEq/L 12-20 calcium level (test code = 9.1 mg/dL 8.8-10.2 calcium level) total protein (test code = total 5.9 g/dL 6.6-8.7 L protein) albumin (test code = albumin) 3.7 g/dL 3.5-5.2 globulin (test code = globulin) 2.2 gm/dL A/G ratio (test code = A/G ratio) 1.7 >1.0 bilirubin,total (test code = 0.5 mg/dL 0.0-1.2 bilirubin,total) AST/SGOT (test code = AST/SGOT) 11 U/L 15-40 L Alanine aminotransferase 9 U/L 0-41 [Enzymatic activity/volume] in Serum or Plasma (test code = 1742-6) Alkaline phosphatase [Enzymatic 75 U/L 40-130 activity/volume] in Serum or Plasma (test code = 6768-6) [facility] CenterB[facility] identified in Urine by [id number] 07:00:00 Test Item Value Reference Range Interpretation Comments Bacteria identified in no growth after 2 Urine by Culture (test days code = 630-4) [facility] W Auto Differential panel - [id number] 07:00:00 Test Item Value Reference Range Interpretation Comments white blood count (test code = 4.4 K/uL 4.0-12.3 white blood count) red blood count (test code = red 2.93 M/uL 3.80-5.80 L blood count) hemoglobin (test code = 10.2 g/dL 11.7-17.2 L hemoglobin) hematocrit (test code = 29.5 % 35.0-51.0 L hematocrit) MCV [Entitic volume] (test code = 100.7 fL 83-100 H 54793-3) mean corpuscular hemoglobin (test 34.8 pg 26.8-33.4 H code = mean corpuscular hemoglobin) mean corpuscular HGB conc (test 34.6 g/dL 30-35 code = mean corpuscular HGB conc) red cell distribution width (test 13.5 % 12.0-14.0 code = red cell distribution width) platelet count (test code = 208 K/uL 175-450 platelet count) mean platelet volume (test code = 9.7 fL 9.4-12.6 mean platelet volume) Segmented neutrophils/100 68.9 % 44.7-82.4 leukocytes in Blood (test code = 09191-4) Immature granulocytes [#/volume] 0.0 K/uL 0.0-0.03 H in Blood (test code = 32451-0) lymphocyte% (test code = 16.0 % 10.0-50.0 lymphocyte%) mono % (test code = mono %) 13.2 % 3.9-13.4 eos % (test code = eos %) 0.5 % 0.0-6.4 Basophils/100 leukocytes in 0.5 % 0.2-1.2 Unspecified specimen (test code = 97173-2) Band form neutrophils [#/volume] 3.02 K/uL 1.78-5.38 in Blood (test code = 26732-6) Lymphocytes [#/volume] in 0.7 K/uL 1.32-3.57 L Unspecified specimen by Automated count (test code = 99099-5) mono # (test code = mono #) 0.58 K/uL 0.30-0.82 eos # (test code = eos #) 0.02 K/uL 0.04-0.54 L basophil # (test code = basophil 0.02 K/uL 0.01-0.08 #) NRBC% (test code = NRBC%) 0 /100 WBC 0-0.2 NRBC# (test code = NRBC#) 0 K/uL [facility] Reflex Culture panel - Urine 2019-11-17 07:00:00 Test Item Value Reference Range Interpretation Comments Color of Urine by Auto (test yellow code = 47247-3) Appearance of Urine (test code clear clear = 5767-9) Glucose [Presence] in Urine by negative negative Automated test strip (test code = 00326-0) Bilirubin.total [Mass/volume] negative negative in Urine (test code = 1977-6) Ketones [Mass/volume] in Urine negative negative by Automated test strip (test code = 77395-4) Specific gravity of Urine by 1.018 1.003-1.030 Automated test strip (test code = 64690-8) blood urine (test code = blood negative negative urine) pH of Urine (test code = 6.500 5-9 2756-5) protein urine (UA) (test code = trace negative protein urine (UA)) Urobilinogen [Presence] in normal 0.2-1.0 Urine (test code = 99127-1) Nitrite [Presence] in Urine by negative negative Test strip (test code = 5802-4) Leukocyte esterase [Presence] negative negative in Urine by Automated test strip (test code = 78057-0) Erythrocytes [#/volume] in =1-5 0-5 Urine by Automated count (test code = 798-9) Leukocytes [#/area] in Urine =1-5 0-5 sediment by Automated count (test code = 92687-4) Epithelial cells [Presence] in <1 0-5 Urine sediment by Light microscopy (test code = 72693-3) Bacteria identified in Urine by none detected none detect Culture (test code = 630-4) Casts [#/area] in Urine none detected none detect sediment by Automated count (test code = 52592-3) urine culture added? (test code no = urine culture added?) [facility] 2000 [facility] - Serum or Plasma 2019-11-17 07:00:00 Test Item Value Reference Range Interpretation Comments Glucose [Mass/volume] in Serum or 177 mg/dL 82-115 H Plasma (test code = 2345-7) Urea nitrogen [Mass/volume] in 8 mg/dL 8-23 Serum or Plasma (test code = 3094-0) osmolality calculated,serum (test 251 mOsm/kg 280-300 L code = osmolality calculated,serum) creatinine (test code = 0.9 mg/dL 0.70-1.20 creatinine) glomerular filtration rate (test >60.00 code = glomerular filtration rate) Urea nitrogen/Creatinine [Mass 8.9 12-20 L Ratio] in Serum or Plasma (test code = 3097-3) sodium level (test code = sodium 123 mmol/L 135-145 L level) potassium level (test code = 4.2 mmol/L 3.5-5.2 potassium level) chloride level (test code = 88 mmol/L 98-108 L chloride level) CO2 (test code = CO2) 23 mmol/L 21-32 anion gap (test code = anion gap) 16.2 mEq/L 12-20 calcium level (test code = 9.1 mg/dL 8.8-10.2 calcium level) total protein (test code = total 5.9 g/dL 6.6-8.7 L protein) albumin (test code = albumin) 3.7 g/dL 3.5-5.2 globulin (test code = globulin) 2.2 gm/dL A/G ratio (test code = A/G ratio) 1.7 >1.0 bilirubin,total (test code = 0.5 mg/dL 0.0-1.2 bilirubin,total) AST/SGOT (test code = AST/SGOT) 11 U/L 15-40 L Alanine aminotransferase 9 U/L 0-41 [Enzymatic activity/volume] in Serum or Plasma (test code = 1742-6) Alkaline phosphatase [Enzymatic 75 U/L 40-130 activity/volume] in Serum or Plasma (test code = 6768-6) [facility] identified [facility] U[facility] by [id number] 07:00:00 Test Item Value Reference Range Interpretation Comments Bacteria identified in no growth after 2 Urine by Culture (test days code = 630-4) [facility] coronavirus 2 RNA [Presence] in Respiratory specimen by BERRY with probe [id number] 00:00:00Covid-19 RNA (Sars-cov-2), Ql, 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, [facility] [Presence] in Respiratory specimen by BERRY with probe [id number] 00:00:00Covid-19 RNA (Sars-cov-2), Ql, 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, Respiratory Specimen [facility] W Auto Differential panel - [id number] 02:05:00 Test Item Value Reference Range Interpretation Comments white blood count (test code = 4.6 K/uL 4.0-12.3 white blood count) red blood count (test code = red 3.36 M/uL 3.80-5.80 L blood count) hemoglobin (test code = 11.5 g/dL 11.7-17.2 L hemoglobin) hematocrit (test code = 32.8 % 35.0-51.0 L hematocrit) MCV [Entitic volume] (test code = 97.6 fL 83-100 93268-8) mean corpuscular hemoglobin (test 34.2 pg 26.8-33.4 H code = mean corpuscular hemoglobin) mean corpuscular HGB conc (test 35.1 g/dL 30-35 H code = mean corpuscular HGB conc) red cell distribution width (test 12.5 % 12.0-14.0 code = red cell distribution width) platelet count (test code = 146 K/uL 175-450 L platelet count) mean platelet volume (test code = 8.9 fL 9.4-12.6 L mean platelet volume) Segmented neutrophils/100 71.8 % 44.7-82.4 leukocytes in Blood (test code = 02306-8) Immature granulocytes [#/volume] 0.0 K/uL 0.0-0.03 in Blood (test code = 61838-2) lymphocyte% (test code = 13.8 % 10.0-50.0 lymphocyte%) mono % (test code = mono %) 13.8 % 3.9-13.4 H eos % (test code = eos %) 0 % 0.0-6.4 Basophils/100 leukocytes in 0.2 % 0.2-1.2 Unspecified specimen (test code = 54342-2) Band form neutrophils [#/volume] 3.32 K/uL 1.78-5.38 in Blood (test code = 97795-5) Lymphocytes [#/volume] in 0.6 K/uL 1.32-3.57 L Unspecified specimen by Automated count (test code = 87037-0) mono # (test code = mono #) 0.64 K/uL 0.30-0.82 eos # (test code = eos #) 0.00 K/uL 0.04-0.54 L basophil # (test code = basophil 0.01 K/uL 0.01-0.08 #) NRBC% (test code = NRBC%) 0 /100 WBC 0-0.2 NRBC# (test code = NRBC#) 0 K/uL [facility], method unspecified - [id number] 02:05:00NeutrophilsBandLymphocyteAtypical LymphMonocyteEosinophilBasophilMetamyelocyteNucleated Red Blood CellPlatelet EstimatePlatelet MorphologyHypersegmented PolysMatagorda Medical GroupPT/INR 2019-09-22 02:05:00 Test Item Value Reference Range Interpretation Comments prothrombin time (test code = 9.5 seconds 10.3-12.3 L prothrombin time) INR in Blood by Coagulation assay 0.87 (test code = 71051-1) [facility]oplastin [id number] 02:05:00 Test Item Value Reference Range Interpretation Comments INR in Blood by Coagulation 30.6 seconds 22.5-37.0 assay (test code = 25201-8) [facility] CenterCom[facility] 2000 [facility] - Serum or Plasma 2019-09-22 02:05:00 Test Item Value Reference Range Interpretation Comments Glucose [Mass/volume] in Serum or 137 mg/dL 82-115 H Plasma (test code = 2345-7) Urea nitrogen [Mass/volume] in 12 mg/dL 8-23 Serum or Plasma (test code = 3094-0) osmolality calculated,serum (test 252 mOsm/kg 280-300 L code = osmolality calculated,serum) creatinine (test code = 1.0 mg/dL 0.70-1.20 creatinine) glomerular filtration rate (test >60.00 code = glomerular filtration rate) Urea nitrogen/Creatinine [Mass 12.0 12-20 Ratio] in Serum or Plasma (test code = 3097-3) sodium level (test code = sodium 124 mmol/L 135-145 L level) potassium level (test code = 4.5 mmol/L 3.5-5.2 potassium level) chloride level (test code = 87 mmol/L 98-108 L chloride level) CO2 (test code = CO2) 22 mmol/L 21-32 anion gap (test code = anion gap) 19.5 mEq/L 12-20 calcium level (test code = 9.0 mg/dL 8.8-10.2 calcium level) total protein (test code = total 6.8 g/dL 6.6-8.7 protein) albumin (test code = albumin) 4.2 g/dL 3.5-5.2 globulin (test code = globulin) 2.6 gm/dL A/G ratio (test code = A/G ratio) 1.6 >1.0 bilirubin,total (test code = 0.4 mg/dL 0.0-1.2 bilirubin,total) AST/SGOT (test code = AST/SGOT) 20 U/L 15-40 Alanine aminotransferase 14 U/L 0-41 [Enzymatic activity/volume] in Serum or Plasma (test code = 1742-6) Alkaline phosphatase [Enzymatic 88 U/L 40-130 activity/volume] in Serum or Plasma (test code = 6768-6) [facility] CenterTroponidigna I.cardiac [Mass/volume] in [id number] 02:05:00 Test Item Value Reference Range Interpretation Comments cardiac troponin I (test code = cardiac <0.30 0.0-0.5 troponin I) [facility] W Auto Differential panel - [id number] 02:05:00 Test Item Value Reference Range Interpretation Comments white blood count (test code = 4.6 K/uL 4.0-12.3 white blood count) red blood count (test code = red 3.36 M/uL 3.80-5.80 L blood count) hemoglobin (test code = 11.5 g/dL 11.7-17.2 L hemoglobin) hematocrit (test code = 32.8 % 35.0-51.0 L hematocrit) MCV [Entitic volume] (test code = 97.6 fL 83-100 52596-6) mean corpuscular hemoglobin (test 34.2 pg 26.8-33.4 H code = mean corpuscular hemoglobin) mean corpuscular HGB conc (test 35.1 g/dL 30-35 H code = mean corpuscular HGB conc) red cell distribution width (test 12.5 % 12.0-14.0 code = red cell distribution width) platelet count (test code = 146 K/uL 175-450 L platelet count) mean platelet volume (test code = 8.9 fL 9.4-12.6 L mean platelet volume) Segmented neutrophils/100 71.8 % 44.7-82.4 leukocytes in Blood (test code = 06256-6) Immature granulocytes [#/volume] 0.0 K/uL 0.0-0.03 in Blood (test code = 99303-4) lymphocyte% (test code = 13.8 % 10.0-50.0 lymphocyte%) mono % (test code = mono %) 13.8 % 3.9-13.4 H eos % (test code = eos %) 0 % 0.0-6.4 Basophils/100 leukocytes in 0.2 % 0.2-1.2 Unspecified specimen (test code = 84040-4) Band form neutrophils [#/volume] 3.32 K/uL 1.78-5.38 in Blood (test code = 68396-7) Lymphocytes [#/volume] in 0.6 K/uL 1.32-3.57 L Unspecified specimen by Automated count (test code = 19188-2) mono # (test code = mono #) 0.64 K/uL 0.30-0.82 eos # (test code = eos #) 0.00 K/uL 0.04-0.54 L basophil # (test code = basophil 0.01 K/uL 0.01-0.08 #) NRBC% (test code = NRBC%) 0 /100 WBC 0-0.2 NRBC# (test code = NRBC#) 0 K/uL [facility] CenterDifferent[facility], method unspecified - [id number] 02:05:00NeutrophilsBandLymphocyteAtypical LymphMonocyteEosinophilBasophilMetamyelocyteNucleated Red Blood CellPlatelet EstimatePlatelet MorphologyHypersegmented PolysOch [facility] Medical CenterPT/INR 2019-09-22 02:05:00 Test Item Value Reference Range Interpretation Comments prothrombin time (test code = 9.5 seconds 10.3-12.3 L prothrombin time) INR in Blood by Coagulation assay 0.87 (test code = 78804-2) [facility]in [id number] 02:05:00 Test Item Value Reference Range Interpretation Comments INR in Blood by Coagulation 30.6 seconds 22.5-37.0 assay (test code = 62564-3) [facility] [facility] - Serum or Plasma 2019-09-22 02:05:00 Test Item Value Reference Range Interpretation Comments Glucose [Mass/volume] in Serum or 137 mg/dL 82-115 H Plasma (test code = 2345-7) Urea nitrogen [Mass/volume] in 12 mg/dL 8-23 Serum or Plasma (test code = 3094-0) osmolality calculated,serum (test 252 mOsm/kg 280-300 L code = osmolality calculated,serum) creatinine (test code = 1.0 mg/dL 0.70-1.20 creatinine) glomerular filtration rate (test >60.00 code = glomerular filtration rate) Urea nitrogen/Creatinine [Mass 12.0 12-20 Ratio] in Serum or Plasma (test code = 3097-3) sodium level (test code = sodium 124 mmol/L 135-145 L level) potassium level (test code = 4.5 mmol/L 3.5-5.2 potassium level) chloride level (test code = 87 mmol/L 98-108 L chloride level) CO2 (test code = CO2) 22 mmol/L 21-32 anion gap (test code = anion gap) 19.5 mEq/L 12-20 calcium level (test code = 9.0 mg/dL 8.8-10.2 calcium level) total protein (test code = total 6.8 g/dL 6.6-8.7 protein) albumin (test code = albumin) 4.2 g/dL 3.5-5.2 globulin (test code = globulin) 2.6 gm/dL A/G ratio (test code = A/G ratio) 1.6 >1.0 bilirubin,total (test code = 0.4 mg/dL 0.0-1.2 bilirubin,total) AST/SGOT (test code = AST/SGOT) 20 U/L 15-40 Alanine aminotransferase 14 U/L 0-41 [Enzymatic activity/volume] in Serum or Plasma (test code = 1742-6) Alkaline phosphatase [Enzymatic 88 U/L 40-130 activity/volume] in Serum or Plasma (test code = 6768-6) [facility] [Mass/volume] in [id number] 02:05:00 Test Item Value Reference Range Interpretation Comments cardiac troponin I (test code = cardiac <0.30 0.0-0.5 troponin I) [id number] 04:34:00 Test Item Value Reference Range Interpretation Comments prothrombin time (test code = 9.9 seconds 10.3-12.3 L prothrombin time) INR in Blood by Coagulation assay 0.90 (test code = 52851-5) [facility] [id number] 04:34:00 Test Item Value Reference Range Interpretation Comments INR in Blood by Coagulation 25.8 seconds 22.5-37.0 assay (test code = 73271-1) [facility][id number] 04:34:00 Test Item Value Reference Range Interpretation Comments prothrombin time (test code = 9.9 seconds 10.3-12.3 L prothrombin time) INR in Blood by Coagulation assay 0.90 (test code = 18949-8) [facility] [id number] 04:34:00 Test Item Value Reference Range Interpretation Comments INR in Blood by Coagulation 25.8 seconds 22.5-37.0 assay (test code = 67421-2) [facility] W Auto Differential panel - [id number] 04:18:00 Test Item Value Reference Range Interpretation Comments white blood count (test code = 7.4 K/uL 4.0-12.3 white blood count) red blood count (test code = red 3.17 M/uL 3.80-5.80 L blood count) hemoglobin (test code = 10.6 g/dL 11.7-17.2 L hemoglobin) hematocrit (test code = 31.4 % 35.0-51.0 L hematocrit) Erythrocyte mean corpuscular 99.1 fL 83-100 volume [Entitic volume] (test code = 09576-4) Erythrocyte mean corpuscular 33.4 pg 26.8-33.4 hemoglobin [Entitic mass] (test code = 90786-5) mean corpuscular HGB conc (test 33.8 g/dL 30-35 code = mean corpuscular HGB conc) red cell distribution width (test 12.4 % 12.0-14.0 code = red cell distribution width) platelet count (test code = 332 K/uL 175-450 platelet count) mean platelet volume (test code = 9.5 fL 9.4-12.6 mean platelet volume) Neutrophils.segmented/100 70.8 % 44.7-82.4 leukocytes in Blood (test code = 42785-3) Ig% (test code = Ig%) 0.5 % 0.0-0.4 H lymphocyte% (test code = 16.0 % 10.0-50.0 lymphocyte%) Monocytes/100 leukocytes in Blood 11.3 % 3.9-13.4 by Automated count (test code = 5905-5) Eosinophils/100 leukocytes in 1.0 % 0.0-6.4 Blood by Automated count (test code = 713-8) Basophils/100 leukocytes in 0.4 % 0.2-1.2 Unspecified specimen (test code = 07183-4) absolute neutrophil count (test 5.21 K/uL 1.78-5.38 code = absolute neutrophil count) Ig# (test code = Ig#) 0.0 K/uL 0.0-0.03 Lymphocytes [#/volume] in 1.2 K/uL 1.32-3.57 L Unspecified specimen by Automated count (test code = 91090-6) mono # (test code = mono #) 0.83 K/uL 0.30-0.82 H eos # (test code = eos #) 0.07 K/uL 0.04-0.54 basophil # (test code = basophil 0.03 K/uL 0.01-0.08 #) NRBC% (test code = NRBC%) 0 /100 WBC 0-0.2 NRBC# (test code = NRBC#) 0 K/uL [facility], [id number] 04:18:00 NeutrophilsBandLymphocyteAtypical LymphMonocyteEosinophilBasophilMetamyelocyteMyelocyteNucleated RedBlood CellPlatelet EstimatePlatelet MorphologyPoikilocytosisBurr CellsHypersegmented PolysOch [facility] CenterComprehensive metabolic 2000 panel - Serum or Plasma 2018-09-09 04:18:00 Test Item Value Reference Range Interpretation Comments Glucose [Mass/volume] in Serum or 159 mg/dL 82-115 H Plasma (test code = 2345-7) Urea nitrogen [Mass/volume] in 8 mg/dL 8-23 Serum or Plasma (test code = 3094-0) Osmolality of Serum or Plasma 264 280-300 L (test code = 2692-2) creatinine (test code = 0.9 mg/dL 0.70-1.20 creatinine) glomerular filtration rate (test >60.00 code = glomerular filtration rate) Urea nitrogen/Creatinine [Mass 8.9 12-20 L Ratio] in Serum or Plasma (test code = 3097-3) sodium level (test code = sodium 131 mmol/L 135-145 L level) potassium level (test code = 3.6 mmol/L 3.5-5.2 potassium level) chloride level (test code = 92 mmol/L 98-108 L chloride level) CO2 (test code = CO2) 24 mmol/L 21-32 anion gap (test code = anion gap) 18.6 mEq/L 12-20 calcium level (test code = calcium 9.2 mg/dL 8.8-10.2 level) total protein (test code = total 6.9 g/dL 6.6-8.7 protein) albumin (test code = albumin) 4.0 g/dL 3.5-5.2 globulin (test code = globulin) 2.9 gm/dL A/G ratio (test code = A/G ratio) 1.4 >1.0 bilirubin,total (test code = 0.8 mg/dL 0.0-1.2 bilirubin,total) AST/SGOT (test code = AST/SGOT) 19 U/L 15-40 Alanine aminotransferase 13 U/L 0-41 [Enzymatic activity/volume] in Serum or Plasma (test code = 1742-6) Alkaline phosphatase [Enzymatic 78 U/L 40-130 activity/volume] in Serum or Plasma (test code = 6768-6) [facility] W Auto Differential panel - [id number] 04:18:00 Test Item Value Reference Range Interpretation Comments white blood count (test code = 7.4 K/uL 4.0-12.3 white blood count) red blood count (test code = red 3.17 M/uL 3.80-5.80 L blood count) hemoglobin (test code = 10.6 g/dL 11.7-17.2 L hemoglobin) hematocrit (test code = 31.4 % 35.0-51.0 L hematocrit) Erythrocyte mean corpuscular 99.1 fL 83-100 volume [Entitic volume] (test code = 25494-3) Erythrocyte mean corpuscular 33.4 pg 26.8-33.4 hemoglobin [Entitic mass] (test code = 62753-6) mean corpuscular HGB conc (test 33.8 g/dL 30-35 code = mean corpuscular HGB conc) red cell distribution width (test 12.4 % 12.0-14.0 code = red cell distribution width) platelet count (test code = 332 K/uL 175-450 platelet count) mean platelet volume (test code = 9.5 fL 9.4-12.6 mean platelet volume) Neutrophils.segmented/100 70.8 % 44.7-82.4 leukocytes in Blood (test code = 59966-5) Ig% (test code = Ig%) 0.5 % 0.0-0.4 H lymphocyte% (test code = 16.0 % 10.0-50.0 lymphocyte%) Monocytes/100 leukocytes in Blood 11.3 % 3.9-13.4 by Automated count (test code = 5905-5) Eosinophils/100 leukocytes in 1.0 % 0.0-6.4 Blood by Automated count (test code = 713-8) Basophils/100 leukocytes in 0.4 % 0.2-1.2 Unspecified specimen (test code = 03595-6) absolute neutrophil count (test 5.21 K/uL 1.78-5.38 code = absolute neutrophil count) Ig# (test code = Ig#) 0.0 K/uL 0.0-0.03 Lymphocytes [#/volume] in 1.2 K/uL 1.32-3.57 L Unspecified specimen by Automated count (test code = 26152-9) mono # (test code = mono #) 0.83 K/uL 0.30-0.82 H eos # (test code = eos #) 0.07 K/uL 0.04-0.54 basophil # (test code = basophil 0.03 K/uL 0.01-0.08 #) NRBC% (test code = NRBC%) 0 /100 WBC 0-0.2 NRBC# (test code = NRBC#) 0 K/uL [facility]different[facility], [id number] 04:18:00 NeutrophilsBandLymphocyteAtypical LymphMonocyteEosinophilBasophilMetamyelocyteMyelocyteNucleated RedBlood CellPlatelet EstimatePlatelet MorphologyPoikilocytosisBurr CellsHypersegmented PolysMatagoInf[facility] GroupComprehensive metabolic 2000 panel - Serum or Plasma 2018-09-09 04:18:00 Test Item Value Reference Range Interpretation Comments Glucose [Mass/volume] in Serum or 159 mg/dL 82-115 H Plasma (test code = 2345-7) Urea nitrogen [Mass/volume] in 8 mg/dL 8-23 Serum or Plasma (test code = 3094-0) Osmolality of Serum or Plasma 264 280-300 L (test code = 2692-2) creatinine (test code = 0.9 mg/dL 0.70-1.20 creatinine) glomerular filtration rate (test >60.00 code = glomerular filtration rate) Urea nitrogen/Creatinine [Mass 8.9 12-20 L Ratio] in Serum or Plasma (test code = 3097-3) sodium level (test code = sodium 131 mmol/L 135-145 L level) potassium level (test code = 3.6 mmol/L 3.5-5.2 potassium level) chloride level (test code = 92 mmol/L 98-108 L chloride level) CO2 (test code = CO2) 24 mmol/L 21-32 anion gap (test code = anion gap) 18.6 mEq/L 12-20 calcium level (test code = calcium 9.2 mg/dL 8.8-10.2 level) total protein (test code = total 6.9 g/dL 6.6-8.7 protein) albumin (test code = albumin) 4.0 g/dL 3.5-5.2 globulin (test code = globulin) 2.9 gm/dL A/G ratio (test code = A/G ratio) 1.4 >1.0 bilirubin,total (test code = 0.8 mg/dL 0.0-1.2 bilirubin,total) AST/SGOT (test code = AST/SGOT) 19 U/L 15-40 Alanine aminotransferase 13 U/L 0-41 [Enzymatic activity/volume] in Serum or Plasma (test code = 1742-6) Alkaline phosphatase [Enzymatic 78 U/L 40-130 activity/volume] in Serum or Plasma (test code = 6768-6) [facility] CenterUhyduUVLHFBAAVZSL3834-14-93 08:44:00 Test Item Value Reference Range Interpretation Comments AGAP (test code = AGAP) 13.6 10.0-20.0 [facility]USVN7184[facility] 08:44:00 Test Item Value Reference Range Interpretation Comments Creatinine Lvl (test code = Creatinine 0.88 0.50-1.40 Lvl) [facility]CooghzcPMRBPUCQFNVJ2065-46-36 08:44:00 Test Item Value Reference Range Interpretation Comments BUN (test code = BUN) 7 7-22 [facility] HospitalHhrwnmzQCPKAWTFKWIN5213-13-32 08:44:00 Test Item Value Reference Range Interpretation Comments Glucose Lvl (test code = Glucose Lvl) 154 70-99 [facility] HospitalBqrnoxuQIMCEWXFOQGD2835-74-61 08:44:00 Test Item Value Reference Range Interpretation Comments eGFR (test code = eGFR) 79 [facility] HospitalGazrzlaVFAZMTIXFRQH3533-63-71 08:44:00 Test Item Value Reference Range Interpretation Comments Sodium Lvl (test code = Sodium Lvl) 137 135-145 [facility] HospitalIhqmglcXTXAMYZMNRGR3354-55-19 08:44:00 Test Item Value Reference Range Interpretation Comments Chloride Lvl (test code = Chloride Lvl) 101 95-109 [facility] HospitalAytpjdoDDYUBIZOUWMH3355-25-17 08:44:00 Test Item Value Reference Range Interpretation Comments Potassium Lvl (test code = Potassium 3.6 3.5-5.1 Lvl) [facility] HospitalBnllrkqDUAXOAPECQKD1219-01-33 08:44:00 Test Item Value Reference Range Interpretation Comments Calcium Lvl (test code = Calcium Lvl) 8.6 8.5-10.5 [facility] HospitalEfhepleAPQXPTQXJKAW2864-49-84 08:44:00 Test Item Value Reference Range Interpretation Comments CO2 (test code = CO2) 26 24-32 [facility]burgCphnlisGXXCZETBRA6034-86-14 08:44:00 Test Item Value Reference Range Interpretation Comments Hct (test code = Hct) 33.8 42.0-54.0 [facility]burgOepnskzROYPNKTTAY3366-50-64 08:44:00 Test Item Value Reference Range Interpretation Comments Hgb (test code = Hgb) 11.9 14.0-18.0 [facility]burgVmgvgeaIGJDRFTIAU8883-86-49 17:45:00 Test Item Value Reference Range Interpretation Comments WBC (test code = WBC) 5.5 3.7-10.4 [facility]burgVlkesodGMNUQSREYL1518-25-10 17:45:00 Test Item Value Reference Range Interpretation Comments Basophils # (test code 0.1 See_Comment [Aut omated message] The = Basophils #) system which generated this result tra nsmitted reference range : <=0.2. The reference r chelsy was not used to int erpret this result as normal/abnormal . [facility]burgWhjfdvgXGEHNSHKBA0741-06-04 17:45:00 Test Item Value Reference Range Interpretation Comments Monocytes (test code = Monocytes) 11.9 2.0-12.0 [facility]burgDnddfhyPLNZADEZIO7830-27-19 17:45:00 Test Item Value Reference Range Interpretation Comments Lymphocytes (test code = Lymphocytes) 22.9 20.0-40.0 [facility]burgIhbfnnoFJKEMYCCYP5268-64-54 17:45:00 Test Item Value Reference Range Interpretation Comments Segs (test code = Segs) 63.4 45.0-75.0 [facility]burgCysfrpkVEWYGYGHBO7663-36-78 17:45:00 Test Item Value Reference Range Interpretation Comments Lymphocytes # (test code = Lymphocytes 1.2 1.0-5.5 #) [facility]inburgZiqcemyEGOBIKGSJK3038-50-14 17:45:00 Test Item Value Reference Range Interpretation Comments Monocytes # (test code 0.7 See_Comment [Aut omated message] The = Monocytes #) system which generated this result tra nsmitted reference range : <=0.8. The reference r chelsy was not used to int erpret this result as normal/abnormal . [facility]inburgBayhpppZLTWAKLHNO8114-92-30 17:45:00 Test Item Value Reference Range Interpretation Comments Eosinophils (test code = 0.4 See_Comment [A utomated message] The Eosinophils) system which ge nerated this result tra nsmitted reference range : <=4.0. The reference r chelsy was not used to int erpret this result as normal/abnormal . [facility]inburgVvdsnegKLMFEBSSOE2686-78-28 17:45:00 Test Item Value Reference Range Interpretation Comments Basophils (test code = 1.4 See_Comment [Aut omated message] The Basophils) system which ge nerated this result tra nsmitted reference range : <=1.0. The reference r chelsy was not used to int erpret this result as normal/abnormal . [facility]burgCjtshchQOYNWGEKKY0103-36-52 17:45:00 Test Item Value Reference Range Interpretation Comments Neutrophils # (test code = Neutrophils 3.5 1.5-8.1 #) [facility]2019-07-01 17:45:00 Test Item Value Reference Range Interpretation Comments Hgb A1C (test code = Hgb A1C) 6.7 [facility] AND [id number] 17:45:00 Test Item Value Reference Range Interpretation Comments UA pH (test code = UA pH) 6.0 1 5.0-8.0 [facility] AND [id number] 17:45:00 Test Item Value Reference Range Interpretation Comments UA Turbidity (test code = Clear (08/16/18 12:45 UA Turbidity) PM) [facility] AND [id number] 17:45:00 Test Item Value Reference Range Interpretation Comments UA Spec Grav (test code *NA*(08/16/18 12:45 PM) = UA Spec Grav) [facility] AND [id number] 17:45:00 Test Item Value Reference Range Interpretation Comments UA Protein (test code Negative (08/16/18 12:45 = UA Protein) PM) [facility] AND [id number] 17:45:00 Test Item Value Reference Range Interpretation Comments UA Color (test code = Yellow *NA*(08/16/18 UA Color) 12:45 PM) [facility] AND [id number] 17:45:00 Test Item Value Reference Range Interpretation Comments UA Ketones (test code Negative *NA*(08/16/18 = UA Ketones) 12:45 PM) [facility] AND [id number] 17:45:00 Test Item Value Reference Range Interpretation Comments UA Urobilinogen (test code = UA 0.2 0.1-1.0 Urobilinogen) [facility] AND [id number] 17:45:00 Test Item Value Reference Range Interpretation Comments UA Glucose (test code = UA Glucose) 100 mg/dL [facility] AND [id number] 17:45:00 Test Item Value Reference Range Interpretation Comments UA Nitrite (test code Negative (08/16/18 12:45 = UA Nitrite) PM) [facility] AND [id number] 17:45:00 Test Item Value Reference Range Interpretation Comments UA RBC (test None Seen See_Comment [Automated mes ned] code = UA RBC) (08/16/18 12:[address] [facility] PM) generated this result transmitted ref erence range: <=2. The reference range was not used to int erpret this result as normal/abnormal . [facility] AND [id number] 17:45:00 Test Item Value Reference Range Interpretation Comments UA WBC (test code = UA WBC) 0-2 /HPF [facility] AND [id number] 17:45:00 Test Item Value Reference Range Interpretation Comments UA Blood (test code = Negative (08/16/18 12:45 UA Blood) PM) [facility] AND [id number] 17:45:00 Test Item Value Reference Range Interpretation Comments UA Bili (test code = Negative *NA*(08/16/18 UA Bili) 12:45 PM) [facility] AND [id number] 17:45:00 Test Item Value Reference Range Interpretation Comments UA Bacteria (test code = UA Occasional /HPF Bacteria) [facility] AND [id number] 17:45:00 Test Item Value Reference Range Interpretation Comments UA Sq Epi (test code = UA Sq Epi) Rare /LPF [facility] AND [id number] 17:45:00 Test Item Value Reference Range Interpretation Comments UA Leuk Est (test Negative (08/16/18 12:45 code = UA Leuk Est) PM) [facility]2019-07-01 17:45:00 Test Item Value Reference Range Interpretation Comments eGFR (test code = eGFR) 62 [facility]2019-07-01 17:45:00 Test Item Value Reference Range Interpretation Comments Bili Total (test code = Bili Total) 0.5 0.2-1.3 [facility]2019-07-01 17:45:00 Test Item Value Reference Range Interpretation Comments Alk Phos (test code = Alk Phos) 70 39-136 [facility]2019-07-01 17:45:00 Test Item Value Reference Range Interpretation Comments ASPARTATE TRANSAMINASE 19 See_Comment [Aut omated message] (test code = ASPARTATE The s ystem which TRANSAMINASE) generated this result transmitted ref erence range: <=37. Th e reference range was not used to interpr et this result as normal/abnormal . [facility]2019-07-01 17:45:00 Test Item Value Reference Range Interpretation Comments ALANINE AMINOTRANSFERASE 18 See_Comment [A utomated message] (test code = ALANINE The sys tem which AMINOTRANSFERASE) generated this result transmitted ref erence range: <=65. Th e reference range was not used to int erpret this result as normal/abnormal . [facility]2019-07-01 17:45:00 Test Item Value Reference Range Interpretation Comments Total Protein (test code = Total 7.1 6.4-8.4 Protein) [facility]2019-07-01 17:45:00 Test Item Value Reference Range Interpretation Comments Calcium Lvl (test code = Calcium Lvl) 8.7 8.5-10.5 [facility]2019-07-01 17:45:00 Test Item Value Reference Range Interpretation Comments CO2 (test code = CO2) 26 24-32 [facility]2019-07-01 17:45:00 Test Item Value Reference Range Interpretation Comments Albumin Lvl (test code = Albumin Lvl) 3.9 3.5-5.0 [facility]2019-07-01 17:45:00 Test Item Value Reference Range Interpretation Comments BUN (test code = BUN) 10 7-22 [facility]2019-07-01 17:45:00 Test Item Value Reference Range Interpretation Comments Chloride Lvl (test code = Chloride Lvl) 100 95-109 [facility]2019-07-01 17:45:00 Test Item Value Reference Range Interpretation Comments Glucose Lvl (test code = Glucose Lvl) 215 70-99 [facility]2019-07-01 17:45:00 Test Item Value Reference Range Interpretation Comments Potassium Lvl (test code = Potassium 3.9 3.5-5.1 Lvl) [facility]2019-07-01 17:45:00 Test Item Value Reference Range Interpretation Comments Creatinine Lvl (test code = Creatinine 1.09 0.50-1.40 Lvl) [facility]2019-07-01 17:45:00 Test Item Value Reference Range Interpretation Comments Sodium Lvl (test code = Sodium Lvl) 135 135-145 [facility]2019-07-01 17:45:00 Test Item Value Reference Range Interpretation Comments Globulin (test code = Globulin) 3.2 2.7-4.2 [facility]2019-07-01 17:45:00 Test Item Value Reference Range Interpretation Comments AGAP (test code = AGAP) 12.9 10.0-20.0 [facility]2019-07-01 17:45:00 Test Item Value Reference Range Interpretation Comments B/C Ratio (test code = B/C Ratio) 9 1 6-25 [facility]2019-07-01 17:45:00 Test Item Value Reference Range Interpretation Comments A/G Ratio (test code = A/G Ratio) 1.2 1 0.7-1.6 [id number] 17:45:00 Test Item Value Reference Range Interpretation Comments PROTIME (test code = PROTIME) 12.2 s 12.0-14.7 [facility]burgGofznwuOFVEZBIQRG4366-70-56 17:45:00 Test Item Value Reference Range Interpretation Comments aPTT (test code = aPTT) 31.0 s 22.9-35.8 [facility]burgXtpqzqiXTYMLXRWSI1397-16-15 17:45:00 Test Item Value Reference Range Interpretation Comments INR (test code = INR) 0.92 1 0.85-1.17 [facility]burgOzqphocWFTFTCQMGT0489-07-29 17:45:00 Test Item Value Reference Range Interpretation Comments MPV (test code = MPV) 8.8 7.4-10.4 [facility]inburgZmofttoRHTWHYPZGL6137-04-02 17:45:00 Test Item Value Reference Range Interpretation Comments RDW (test code = RDW) 13.2 11.5-14.5 [facility]inburgPdevucwVSPCCUOKXD3354-71-25 17:45:00 Test Item Value Reference Range Interpretation Comments MCHC (test code = MCHC) 34.2 32.0-36.0 [facility]burgCovsgewZBRWBCKVBL4905-66-69 17:45:00 Test Item Value Reference Range Interpretation Comments Platelet (test code = Platelet) 182 133-450 [facility]inburgIsdnyviIRWFKOWVPR6463-68-57 17:45:00 Test Item Value Reference Range Interpretation Comments MCH (test code = MCH) 34.8 pg 27.0-31.0 [facility]inburgHqgpcmkNQXPFASPYL0954-81-97 17:45:00 Test Item Value Reference Range Interpretation Comments Hgb (test code = Hgb) 13.0 14.0-18.0 [facility]inburgMqlmhrnFOTHZYNBGZ7965-93-35 17:45:00 Test Item Value Reference Range Interpretation Comments Hct (test code = Hct) 38.1 42.0-54.0 [facility]inburgEddnqsmXVLNPPJKCA6948-67-01 17:45:00 Test Item Value Reference Range Interpretation Comments MCV (test code = MCV) 101.7 80.0-94.0 [facility] EdinburgRsfpozoCCCUOCKHFH2734-33-50 17:45:00 Test Item Value Reference Range Interpretation Comments RBC (test code = RBC) 3.75 4.70-6.10 [facility]
[2021-08-01] MEDS ORDERED: ACETAMINOPHEN 500 MG TAB PO PRN (16:32)
[2021-08-01] MEDS ORDERED: ONDANSETRON 4 MG/2 ML VIAL IV PRN (16:32)
[2021-08-01] MEDS ORDERED: VITAMIN K (ADULT) 10 MG/ML SQ SCH (17:00)
[2021-08-01] MEDS ORDERED: NA CHLORIDE 0.9% 250 ML IV SCH ×2 (17:00→18:00)
[2021-08-01] MEDS ORDERED: GOLYTELY 4000 ML PO SCH (17:00)
[2021-08-01] MEDS: NA CHLORIDE 0.9% 1,000 ML IV SCH (17:02)
[2021-08-01] MEDS: PANTOPRAZOLE INJ 80 MG in NA CHLORIDE 0.9% 250 ML IV SCH (17:17)
[2021-08-01 17:47] LABS: Bilirubin Total 0.8 mg/dL (0.2-1.0); Potassium 4.5 mmol/L (3.5-5.1); Protein, Total 5.4 g/dL (6.4-8.2)
[2021-08-01 17:48] LABS: Absolute Lymphocytes (CBC) 0.6 K/uL (0.7-4.9); Hematocrit 29.3 % (39.6-49.0); Lymphocytes % 7.4 % (15.3-44.8); MCV 99.4 fL (80-100); MPV 8.8 fL (7.6-11.3); RBC Red Blood Cell Count 2.95 M/uL (4.33-5.43)
[2021-08-01 17:54] LABS: Protime INR 1.01
[2021-08-01] MEDS ORDERED: EPINEPHRINE/PF 1 MG/ML AMP ONE (18:16)
[2021-08-01] MEDS ORDERED: propofoL 200 MG/20 ML VIAL IV ONE (18:36)
[2021-08-01] MEDS ORDERED: LIDOCAINE 1% MPF 5 ML VIAL ONE (18:36)
[2021-08-01 19:36] VITALS: O2SAT 100
[2021-08-01 19:46] VITALS: BMI 22.5
[2021-08-01] MEDS: OCTREOTIDE 500 MCG in NA CHLORIDE 0.9% 500 ML IV SCH (20:13)
[2021-08-01 21:01] LABS: Hematocrit 27.7 % (39.6-49.0)
[2021-08-01] MEDS ORDERED: MELATONIN 5 MG TABLET PO PRN (21:55)
--- NOTE | 2021-08-01 23:51 | P.HP ---
Certification for Inpatient Patient admitted to: Inpatient With expected LOS: >2 Midnights Patient will require the following post-hospital care: None Practitioner: I am a practitioner with admitting privileges, knowledge of patient current condition, hospital course, and medical plan of care. Services: Services provided to patient in accordance with Admission requirements found in Title 42 Section 412.3 of the Code of Federal Regulations Patient History Date of Service: 08/01/21 Reason for admission: Acute blood loss anemia History of Present Illness: patient is a an 86-year-old gentleman came to the hospital with diffuse lower GI bleeding. Patient had persistent bleeding into the colostomy bag. Patient had 500 cc of blood into the colostomy on arrival and had another 250 cc an hour later. Patient's hemoglobin has dropped and patient has received 1 unit of packed red blood cells. Will go ahead and transfuse another unit. Patient is actively bleeding. Patient will need to be admitted to the ICU. We spoke with the GI and patient will be undergoing endoscopy shortly. Allergies adhesive tape Adverse Reaction (Verified 08/01/21 17:16) Itching/Hives/Rash - Past Medical/Surgical History Has patient received pneumonia vaccine in the past: Yes Diabetic: Yes -: diabetic -: hyperlipidemia -: Rectal cancer -: colostomy x2 for colon cancer. 10/2020? - Family History Father Family History: Reviewed- Non-Contributory - Social History Smoking Status: Never smoker Alcohol use: No CD- Drugs: No Caffeine use: Yes Place of Residence: Home Review of Systems 10-point ROS is otherwise unremarkable Physical Examination - Vital Signs Temperature: 97.9 F Blood Pressure: 135/63 Pulse: 65 Respirations: 18 Pulse Ox (%): 98 - Physical Exam General: Alert, In no apparent distress, Oriented x3 HEENT: Atraumatic, PERRLA, Mucous membr. moist/pink, EOMI, Sclerae nonicteric Neck: Supple, 2+ carotid pulse no bruit, No LAD, Without JVD or thyroid abnormality Respiratory: Clear to auscultation bilaterally, Normal air movement Cardiovascular: Regular rate/rhythm, Normal S1 S2 Gastrointestinal: Normal bowel sounds, No tenderness, Other ( colostomy bag with bloody bowel movement) Musculoskeletal: No tenderness Integumentary: No rashes Neurological: Normal speech, Normal strength at 5/5 x4 extr, Normal tone, Sensation intact, Cranial nerves 3-12 intact, Normal affect Lymphatics: No axilla or inguinal lymphadenopathy - Studies Laboratory Data (last 24 hrs) 08/01/21 20:38: Hgb 9.5 L, Hct 27.7 L 08/01/21 17:04: Sodium 133 L, Potassium 4.5, BUN 20 H, Creatinine 0.78, Glucose 136 H, Total Bilirubin 0.8, AST 8 L, ALT 17, Alkaline Phosphatase 52 08/01/21 17:04: PT 11.1, INR 1.01, APTT 29.7 08/01/21 17:04: WBC 7.8, Hgb 10.1 L, Hct 29.3 L, Plt Count 139 L Assessment & Plan - Problems (Diagnosis) (1) Lower GI bleed Current Visit: Yes Status: Acute (2) History of coronary artery disease Current Visit: Yes Status: Acute (3) History of rectal cancer Current Visit: Yes Status: Acute (4) Status post colonoscopy with polypectomy Current Visit: Yes Status: Acute - Plan 1. Continue with IV hydration and PPI drip 2. Continue with IV antibiotics 3. Continue with pain control 4. NPO 5. GI consultation 6. Monitor LFTs and lipase along with electrolytes and serial H&H. 7. GI and DVT prophylaxis Discharge Plan: Home Plan to discharge in: Greater than 2 days - Advance Directives Does patient have a Living Will: No Does patient have a Durable POA for Healthcare: No - Code Status/Comfort Care Code Status Assessed: Yes Code Status: Full Code Critical Care: No Time Spent Managing PTS Care (In Minutes): 45
[2021-08-02] MEDS ORDERED: NA CHLORIDE 0.9% 250 ML ONE (00:26)
[2021-08-02 02:12] LABS: Urine Appearance Clear (Clear); Urine Bilirubin Negative (Negative); Urine Blood Negative (Negative); Urine Color Yellow (Yellow); Urine Glucose Negative (Negative); Urine Protein Negative (Negative); Urine Urobilinogen 0.2 mg/dL (0.2-1.0); Urine pH 5.5 (5.0-7.0)
[2021-08-02] MEDS: NA CHLORIDE 0.9% 1,000 ML IV SCH ×2 (03:12→06:11)
[2021-08-02] MEDS: PANTOPRAZOLE INJ 80 MG in NA CHLORIDE 0.9% 250 ML IV SCH ×2 (04:50→13:00)
[2021-08-02] MEDS: OCTREOTIDE 500 MCG in NA CHLORIDE 0.9% 500 ML IV SCH ×2 (05:00→14:26)
[2021-08-02 06:46] LABS: Absolute Lymphocytes (CBC) 0.9 K/uL (0.7-4.9); Hematocrit 25.8 % (39.6-49.0); Lymphocytes % 13.9 % (15.3-44.8); MCV 96.7 fL (80-100); MPV 8.2 fL (7.6-11.3); RBC Red Blood Cell Count 2.67 M/uL (4.33-5.43)
[2021-08-02 08:00] LABS: BUN Blood Urea Nitrogen 18 mg/dL (7-18); Bicarbonate 21 mmol/L (21-32); Glomerular Filtration Rate 77 ml/min (=/>90); Glucose Level 144 mg/dL (74-106); Potassium 4.6 mmol/L (3.5-5.1); Sodium Level 133 mmol/L (136-145)
[2021-08-02 08:01] LABS: Folic Acid, (Folate) > 20.0 ng/mL (3.1-17.5); Magnesium 1.7 mg/dL (1.8-2.4)
--- NOTE | 2021-08-02 11:51 | RAD REPORT ---
EXAM DESCRIPTION: CT - Abdomen Pelvis W Contrast - 08/01/2021 10:43 pmDouble checked with Linda caballero this one still needs to be read. CLINICAL HISTORY: LGIB COMPARISON: No comparisons TECHNIQUE: Biphasic, helical CT imaging of the abdomen and pelvis was performed following 100 ml non -ionic IV contrast. No oral contrast administered. All CT scans are performed using dose optimization technique as appropriate and may include automated exposure control or mA/KV adjustment according to patient size. FINDINGS: Minimal lung base scarring with no acute lung base finding. The liver, spleen, and pancreas show no suspicious findings. Several small benign liver cysts are pre sent. No portal vein abnormality. There is no biliary tree dilatation. A small sub centimeter gallsto ne is seen in an otherwise unremarkable gallbladder. No suspicion for common duct stone. Symmetric renal function is seen with no hydronephrosis or suspicious renal mass. No pyelonephritis o r acute parenchymal process. No bladder abnormalities. No adrenal abnormalities. No gastric dilatation or gastric wall thickening. No dilated large or small bowel loops. Two ostomy s ites are present in the left supraumbilical abdominal wall and in the infraumbilical abdominal wall l eft-side. Vera pouch is present. Stool is present in the remnant portion of the rectum. No mass or wall thickening at the anastomotic site. Patient's cecum is positioned anterior superior aspect of t he abdomen. Appendix is unremarkable. No terminal ileum or ileocecal valve acute finding. Clips are p resent in the cecum from prior endoscopic procedure. No suspicious or acute GI process is identifiabl e. Mild mucosal level inflammatory changes or small vascular malformations can be occult on CT imagin g. No free air, free fluid or inflammatory stranding. No hernia, mass or bulky lymphadenopathy. No suspicious bony findings. Final report was delayed due to technical factors. IMPRESSION: No acute GI abnormalities identifiable as a source for GI bleeding. Endoscopic placed cl ips are seen near the cecum. Mild mucosal level inflammatory changes or vascular malformations as a source for bleeding can be occ ult on CT imaging. No free air, abscess or other surgically emergent finding.
[2021-08-02 14:37] LABS: Absolute Lymphocytes (CBC) 1.1 K/uL (0.7-4.9); Hematocrit 27.7 % (39.6-49.0); Lymphocytes % 13.4 % (15.3-44.8); MCV 97.8 fL (80-100); MPV 8.5 fL (7.6-11.3); RBC Red Blood Cell Count 2.84 M/uL (4.33-5.43)
[2021-08-02 16:30] VITALS: BP 147/65; TEMP 97.3
--- NOTE | 2021-08-03 08:55 | EKG ---
Test Date: 2021-08-02 Test Time: 10:23:52 Wiping Cloth Cutter: JACQUI MEASUREMENT RESULTS: Intervals: Rate: 47 VA: QRSD: 74 QT: 450 QTc: 398 [place]: P: VA: QRS: 26 T: 73 INTERPRETIVE STATEMENTS: Atrial fibrillation with slow ventricular response Abnormal ECG No previous ECG available for comparison Electronically Signed On 08-03-21 08:55:05 CDT by Anthony Gillespie
--- NOTE | 2021-08-21 00:39 | P.DS ---
Discharge Date: 08/02/21 Disposition: MA HOME/HOME HEALTH CARE Discharge Condition: GOOD Reason for Admission: Acute blood loss anemia - Problems (1) Lower GI bleed Status: Acute (2) History of coronary artery disease Status: Acute (3) History of rectal cancer Status: Acute (4) Status post colonoscopy with polypectomy Status: Acute Brief History of Present Illness: patient is a an 86-year-old gentleman came to the hospital with diffuse lower GI bleeding. Patient had persistent bleeding into the colostomy bag. Patient had 500 cc of blood into the colostomy on arrival and had another 250 cc an hour later. Patient's hemoglobin has dropped and patient has received 1 unit of packed red blood cells. Will go ahead and transfuse another unit. Patient is actively bleeding. Patient will need to be admitted to the ICU. We spoke with the GI and patient will be undergoing endoscopy shortly. Hospital Course: Patient had a colonic ulcer that was actively bleeding. It had to be injected and bleeding stabilized. We monitored patient overnight and patient;s Hgb is stable. Patent is stable for discharge home with outpt follow-up. Vital Signs/Physical Exam: Temp Pulse Resp BP Pulse Ox 97.3 F 48 L 16 147/65 H 99 08/02/21 16:00 08/02/21 16:00 08/02/21 16:00 08/02/21 16:00 08/02/21 16:00 General: Alert, In no apparent distress, Oriented x3 Laboratory Data at Discharge: WBC 8.0 K/uL (4.3-10.9) D 08/02/21 14:20 Hgb 9.5 g/dL (13.6-17.9) L 08/02/21 14:20 Hct 27.7 % (39.6-49.0) L 08/02/21 14:20 Plt Count 131 K/uL (152-406) L 08/02/21 14:20 PT 11.1 SECONDS (9.5-12.5) 08/01/21 17:04 INR 1.01 08/01/21 17:04 APTT 29.7 SECONDS (24.3-36.9) 08/01/21 17:04 Sodium 133 mmol/L (136-145) L 08/02/21 06:29 Potassium 4.6 mmol/L (3.5-5.1) 08/02/21 06:29 BUN 18 mg/dL (7-18) 08/02/21 06:29 Creatinine 0.95 mg/dL (0.55-1.3) 08/02/21 06:29 Glucose 144 mg/dL (74-106) H 08/02/21 06:29 Magnesium 1.7 mg/dL (1.8-2.4) L 08/02/21 06:29 Total Bilirubin 0.8 mg/dL (0.2-1.0) 08/01/21 17:04 AST 8 U/L (15-37) L 08/01/21 17:04 ALT 17 U/L (12-78) 08/01/21 17:04 Alkaline Phosphatase 52 U/L (45-117) 08/01/21 17:04 Home Medications: Cefdinir [Omnicef] 300 mg PO BID #14 capsule 08/02/21 Pantoprazole [Protonix Tab] 40 mg PO DAILY #30 tab 08/02/21 metroNIDAZOLE [Flagyl] 500 mg PO Q8H #20 tablet 08/02/21 New Medications: metroNIDAZOLE [Flagyl] 500 mg PO Q8H #20 tablet Cefdinir [Omnicef] 300 mg PO BID #14 capsule Pantoprazole [Protonix Tab] 40 mg PO DAILY #30 tab Physician Discharge Instructions: -DC IV and DC home -Follow-up with PCP in 1 to 2 weeks -Follow-up with GI in 2 weeks -Please call Dr. Contreras at [phone] if any questions regarding hospital stay -Please call nursing station at [phone] if any nursing or medication questions -Return to the emergency room if symptoms worsen Diet: Regular Activity: Fall precautions Time spent managing pt's care (in minutes): 35
--- NOTE | 2021-09-05 12:59 | CON ---
Reason For Consultation: GI bleed. History Of Presenting Illness: The patient is an 86-year-old gentleman with past history of rectal c ancer status post colostomy which required revision, diabetes, dyslipidemia, came to the ER with comp laints of GI bleeding. The patient had a recent colonoscopy, at which time, 2 polyps were removed wi th large 1 in the ascending colon, since he has had bleeding in the last 24 hours, Past Medical History: As above. Past Surgical History: As above. Family History: Noncontributory. Social History: Denies toxic habits. Review of Systems: GI: As in HPI, otherwise negative. Remainder of 10-point review of systems is negative. Physical Examination: Vital Signs: Reviewed. Temperature 97.9, blood pressure 134/63, pulse 65, respiratory rate 18. HEENT: Head atraumatic, normocephalic. Pupils equally reactive. Neck: Supple. Chest: Clear to auscultation bilaterally. Abdomen: Soft, nontender, nondistended. Bowel sounds present. Two colostomy sites seen. Extremities: No pedal edema. Laboratory Data: Reviewed. Hemoglobin 9.5. CT also reviewed. Impression: An 86-year-old gentleman, likely with post polypectomy bleeding. We will schedule him f or an urgent colonoscopy without any prep as we have a pretty good idea of the site of the bleeding. The risks and complications of the procedure, which include, but not limited to bleeding, infection, perforation, anesthesia complications were discussed. He understands and agrees. US/MODL Voice ID: [id number] Report ID: [id number]
--- NOTE | 2021-09-05 21:59 | OP ---
Surgeon: Joel Dawkins MD Procedure Performed: Colonoscopy through stoma. Indication For Procedure: GI bleeding. Plan For Anesthesia: Monitored anesthesia care. Complexity: High due to the patient's active bleeding. Technique: After obtaining informed consent from the patient explaining risks and complications, the patient was placed in a supine position and sedation was given. First, the scope was inserted into the lower stoma and guided up till narrowing was encountered. No active bleeding seen in this locati on. Subsequently, the scope was inserted in the stoma above the one on the lower abdomen, this revea led 2 openings. The lower opening went back to the lower colostomy stoma, but the second opening did go to the cecum. It is there where we saw evidence of recent bleeding with altered blood in the ent jd portion. The terminal ileum was intubated. Subsequently, the scope was gradually withdrawn. Th e source site of bleeding treated as below. Procedure terminated in a safe manner. Findings: Two colostomy stoma actively bleeding seen at the site of an ulcer at the polypectomy in t he proximal ascending colon. This was treated by epinephrine injection and placement of 2 clips with good resolution. The terminal ileum appeared normal. Complications: None. Estimated Blood Loss: Minimal. Tolerance To Anesthesia: Excellent. Postoperative Diagnosis: Colonic ulcer with bleeding, status post treatment, status post colostomy. Plan: Continue current management. Can restart diet. Continue antibiotics. If there is no evidenc e of further bleeding, the patient can be discharged home tomorrow. US/MODL Voice ID: [id number] Report ID: [id number]
== END 2021-08-02 17:18 | disposition home health service (06) | DRG 394 ==
LOC: OBSVTOIN 15:41 → 2ND 15:41
PROVIDERS: ADMIT Hospitalist; ATTEND Hospitalist
PROC: 0W3P8ZZ Control Bleeding in Gastrointestinal Tract, Via Natural or Artificial Opening Endoscopic (ICD-10-PCS; 2021-08-01)
PROC: 30233N1 Transfusion of Nonautologous Red Blood Cells into Peripheral Vein, Percutaneous Approach (ICD-10-PCS; principal; 2021-08-02)
DX: K63.3 Ulcer of intestine (principal); K92.2 Gastrointestinal hemorrhage, unspecified; E11.9 Type 2 diabetes mellitus without complications; E78.5 Hyperlipidemia, unspecified; Z93.3 Colostomy status; I25.10 Atherosclerotic heart disease of native coronary artery without angina pectoris; Z85.038 Personal history of other malignant neoplasm of large intestine
CPT/HCPCS: 36415; 74177; 80048; 80053; 81003; 82607; 82746; 82947; 83540; 83735; 85014; 85018; 85025; 85044; 85610; 85730; 86850; 86900; 86901; 93005; C9113; J0171; J2354; J2704; J3430; J7030; J7040; J7050; P9016; Q9967